=== PATIENT | female | born 1945 | race Caucasian/White ===

== ENCOUNTER 2021-06-27 10:16 | Inpatient (IN) ==
--- NOTE | 2021-06-27 11:01 | Emergency Department Note ---
Impression & Plan Closed fracture of left hip, Fall ED Provider Note Provider: Babatunde Cope MD DATE OF SERVICE: 06/27/2021 CHIEF COMPLAINT: Fall, left hip pain HISTORY OF PRESENT ILLNESS: Patient is a 75-year-old female reported history of brain tumor on chemotherapy as well as stroke with some mild resultant weakness of left side presenting here today by ambulance after a fall 2 days ago. Evidently fell at home on . Denies loss of conscious but states she did strike her head. Denies any headache, dizziness, neck pain, or visual changes. Denies chest pain or shortness of breath. Denies abdominal pain. Reports pain in her left inguinal region of the hip towards the left thigh. Denies any numbness or tingling the foot but states it hurts when she tries to move the leg and says she cannot walk on it. States initially she is able get up after the fall and up but then it hurt a lot. Talked with her doctor's office by her report he was given some pain medicine. Given contrast is obtained here today. No other falls reported. Denies use of blood thinners. Again reports she is on chemotherapy infusions every several weeks. REVIEW OF SYSTEMS: A total of 10 review of systems was obtained and negative except as stated above in the HPI. PAST MEDICAL HISTORY: As noted above MEDICATIONS: Denies use of anticoagulants, reviewed home medications SOCIAL HISTORY: Resides at home PHYSICAL EXAM: GENERAL: alert and oriented in no acute distress on stretcher Head: normocephalic and atraumatic EYES: No injection, discharge or icterus. PERRL NECK: Trachea midline. Supple. ENT: Mucous membranes pink and moist. LUNGS: Airway patent. No retractions. Breath sounds clear HEART: Regular rate and rhythm. No chest wall tenderness ABDOMEN: Soft and non-tender, without guarding or rebound. BACK: No midline tenderness. No bilateral flank tenderness. SKIN: Acyanotic, warm, dry, without rashes EXTREMITIES: Without swelling, tenderness or deformity except for pain at the left inguinal region and pain with ROM of the left hip. NEUROLOGICAL:No aphasia. No facial droop with slight slurred speech. Intact and strong strength in the right upper and lower extremity. Limited mobility in the left lower leg due to pain at the hip but good toe wiggle. Some mild weakness of the left upper arm but able to move it purposefully. Intact sensation of left arm and leg. EK beats. Normal sinus rhythm. No PVC or PAC. No acute ST segment elevation or depression. QTc 441. Normal axis. CONTINUOUS CARDIAC MONITORING: was ordered and showed a heart rate of 60s-70s bpm in normal sinus rhythm GCS 15. Patient's laboratory studies and imaging reviewed. Differential includes Fracture, dislocation, contusion, intra-abdominal, pneumothorax, intrathoracic, intracranial, neurologic, compartment syndrome, rhabdomyolysis, as well as other pathologies. IMPRESSION/MEDICAL DECISION MAKING: Patient presents after fall 2 days ago with left inguinal pain. Question hip fracture. No history of hip surgeries reported. Did note she did hit her head did complete a CT of the head although by her report not having new neurological deficits. No significant report of significant neck pain or chest or abdominal pain otherwise. No evidence of significant wound. Basic labs were obtained. Blood work without leukocytosis. Mild anemia 11.5. No electrolyte abnormality. Stable renal function. Negative COVID test. Hip x-ray questions left hip fracture. Orthopedics to be consulted. Patient and sister updated at bedside. Hospitalist contacted for further care and likely operative pair of the hip. DIAGNOSIS: Fall, left hip fracture DISPOSITION: Hospitalist will evaluate Patient was agreeable with this plan. Past Med/Surg History Social History Smoking Status: Former smoker Preferred Language: Faroese Feels Safe at Home: Yes Home Meds Home Medications Medication Instructions Recorded Confirmed acetaminophen 325 mg capsule 325 mg PO QID PRN 06/27/21 06/27/21 amlodipine 5 mg tablet 5 mg PO DAILY 06/27/21 06/27/21 cholestyramine (with sugar) 4 gram 1 ea PO QAM 06/27/21 06/27/21 powder for susp in a packet clobetasol 0.05 % topical ointment 1 applic TOPICAL BID 06/27/21 06/27/21 cyanocobalamin (vitamin B-12) 1,000 mcg IM Q30D 06/27/21 06/27/21 1,000 mcg/mL injection solution dexamethasone 0.5 mg/5 mL oral 1 mg PO QID 06/27/21 06/27/21 solution ergocalciferol (vitamin D2) 1,250 1,250 mcg PO WK 06/27/21 06/27/21 mcg (50,000 unit) capsule everolimus (antineoplastic) 10 mg 10 mg PO DAILY 06/27/21 06/27/21 tablet labetalol 100 mg tablet 100 mg PO Q8H 06/27/21 06/27/21 lisinopril 40 mg tablet 40 mg PO DAILY 06/27/21 06/27/21 loperamide 2 mg capsule 2 mg PO DAILY 06/27/21 06/27/21 lorazepam 0.5 mg tablet 0.5 mg PO HS PRN 06/27/21 06/27/21 meclizine 12.5 mg tablet 12.5 mg PO DAILY 06/27/21 06/27/21 multivitamin 1 tab PO DAILY 06/27/21 06/27/21 omeprazole 20 mg capsule,delayed 20 mg PO DAILY 06/27/21 06/27/21 release ondansetron HCl 8 mg tablet 8 mg PO Q8H PRN 06/27/21 06/27/21 sertraline 50 mg tablet 50 mg PO DAILY 06/27/21 06/27/21 tramadol 50 mg tablet 50 mg PO BID PRN 06/27/21 06/27/21 Results & Data (ED) Vital Signs Vital Signs - 24 hr 06/27/21 10:03 06/27/21 10:28 06/27/21 16:27 Temperature 37.2 C 36.5 C Temperature Source Oral Temporal Artery Scan Pulse Rate 70 76 Pulse Rate [Apical] 71 Pulse Rate [Finger] 70 Pulse Rhythm [Apical] Regular Pulse Strength [Apical] Normal Respiratory Rate 16 16 13 Respiratory Effort / Characteristics Non-Labored Spontaneous Respiratory Depth Normal Blood Pressure 139/84 Blood Pressure [Left Arm] 139/84 195/91 H Blood Pressure Mean 102 Blood Pressure Mean [Left Arm] 102 125 Blood Pressure Position [Left Arm] Lying Pulse Oximetry 93 92 93 Oxygen Delivery Method Room Air Room Air Room Air Oxygen Flow Rate Sepsis Recent Fever Within 48 Hours No Sepsis New/Unexplained Change in Mental Status No Sepsis Action Taken by Nursing No Action Required 06/27/21 16:35 06/27/21 16:45 06/27/21 16:55 Temperature Temperature Source Pulse Rate Pulse Rate [Apical] 66 67 65 Pulse Rate [Finger] Pulse Rhythm [Apical] Regular Regular Regular Pulse Strength [Apical] Normal Normal Normal Respiratory Rate 14 12 16 Respiratory Effort / Characteristics Non-Labored Spontaneous Non-Labored Spontaneous Non-Labored Spontaneous Respiratory Depth Normal Normal Normal Blood Pressure Blood Pressure [Left Arm] 194/89 H 181/89 H 179/87 H Blood Pressure Mean Blood Pressure Mean [Left Arm] 124 119 117 Blood Pressure Position [Left Arm] Lying Lying Lying Pulse Oximetry 98 97 95 Oxygen Delivery Method Oxymask Oxymask Oxymask Oxygen Flow Rate 4 2 2 Sepsis Recent Fever Within 48 Hours Sepsis New/Unexplained Change in Mental Status Sepsis Action Taken by Nursing 06/27/21 17:05 06/27/21 17:15 06/27/21 17:25 Temperature 36.4 C L Temperature Source Temporal Artery Scan Pulse Rate Pulse Rate [Apical] 65 59 L 61 Pulse Rate [Finger] Pulse Rhythm [Apical] Regular Regular Regular Pulse Strength [Apical] Normal Normal Normal Respiratory Rate 13 14 13 Respiratory Effort / Characteristics Non-Labored Spontaneous Non-Labored Spontaneous Non-Labored Spontaneous Respiratory Depth Normal Normal Normal Blood Pressure Blood Pressure [Left Arm] 183/79 H 141/73 H 169/78 H Blood Pressure Mean Blood Pressure Mean [Left Arm] 113 95 108 Blood Pressure Position [Left Arm] Lying Lying Lying Pulse Oximetry 95 96 96 Oxygen Delivery Method Oxymask Oxymask Oxymask Oxygen Flow Rate 2 2 2 Sepsis Recent Fever Within 48 Hours Sepsis New/Unexplained Change in Mental Status Sepsis Action Taken by Nursing 06/27/21 17:31 Temperature Temperature Source Pulse Rate Pulse Rate [Apical] 60 Pulse Rate [Finger] Pulse Rhythm [Apical] Regular Pulse Strength [Apical] Normal Respiratory Rate 17 Respiratory Effort / Characteristics Non-Labored Spontaneous Respiratory Depth Normal Blood Pressure Blood Pressure [Left Arm] 172/74 H Blood Pressure Mean Blood Pressure Mean [Left Arm] 106 Blood Pressure Position [Left Arm] Lying Pulse Oximetry 96 Oxygen Delivery Method Room Air Oxygen Flow Rate Sepsis Recent Fever Within 48 Hours Sepsis New/Unexplained Change in Mental Status Sepsis Action Taken by Nursing Laboratory Data Result diagrams: 06/27/21 10:38 06/27/21 10:38 Lab Results 06/27/21 06/27/21 06/27/21 Range/Units 10:38 10:38 10:38 WBC 7.07 (4.8-10.8) K/uL RBC 4.01 L (4.2-5.4) M/uL Hgb 11.5 L (12.0-16.0) g/dL Hct 36.1 L (37-47) % MCV 90.0 (80-100) fL MCH 28.7 (25-34) pg MCHC 31.9 L (32-36) g/dL RDW Std Deviation 48.1 H (36.4-46.3) fL RDW Coeff of Judie 14.6 H (11.5-14.5) % Plt Count 177 (130-400) K/uL MPV 9.9 (7.4-10.4) fL Immature Gran % (Auto) 0.3 % Neut % (Auto) 65.3 % Lymph % (Auto) 27.2 % [place] % (Auto) 4.8 % Eos % (Auto) 2.3 % Baso % (Auto) 0.1 % Neut # (Auto) 4.62 (1.4-6.5) K/uL Lymph # (Auto) 1.92 (1.2-3.4) K/uL [place] # (Auto) 0.34 (0.11-0.59) K/uL Eos # (Auto) 0.16 (0-0.5) K/uL Baso # (Auto) 0.01 (0-0.2) K/uL Immature Gran # (Auto) 0.02 (0.00-0.02) K/uL PT 10.7 (9.0-12.0) Seconds INR 1.0 (0.9-1.1) Sodium 137 (136-145) mmol/L Potassium 3.7 (3.5-5.1) mmol/L Chloride 103 (98-107) mmol/L Carbon Dioxide 28 (21-32) mmol/L Anion Gap 6 (3-11) BUN 12 (6-23) mg/dl Creatinine 0.64 (0.6-1.2) mg/dl Est Cr Clr Drug Dosing 60.9 ml/min Est GFR ( Amer) 99.8 ml/min Est GFR (Non-Af Amer) 86.1 ml/min BUN/Creatinine Ratio 18.8 (10-20) Glucose 113 H (70-99(Fasting)) mg/dl Calcium 9.0 (8.5-10.1) mg/dl Total Bilirubin 0.5 (0.2-1.0) mg/dl AST 23 (13-39) U/L ALT 22 (7-52) U/L Alkaline Phosphatase 86 (34-104) U/L Total Protein 6.4 (6.0-8.3) gm/dl Albumin 3.7 (3.4-5.0) gm/dl Globulin 2.7 (2.5-4.0) gm/dl Albumin/Globulin Ratio 1.4 (0.9-2) SARS-CoV-2, RNA, NAAT (NEGATIVE) 06/27/21 Range/Units 10:49 WBC (4.8-10.8) K/uL RBC (4.2-5.4) M/uL Hgb (12.0-16.0) g/dL Hct (37-47) % MCV (80-100) fL MCH (25-34) pg MCHC (32-36) g/dL RDW Std Deviation (36.4-46.3) fL RDW Coeff of Judie (11.5-14.5) % Plt Count (130-400) K/uL MPV (7.4-10.4) fL Immature Gran % (Auto) % Neut % (Auto) % Lymph % (Auto) % [place] % (Auto) % Eos % (Auto) % Baso % (Auto) % Neut # (Auto) (1.4-6.5) K/uL Lymph # (Auto) (1.2-3.4) K/uL [place] # (Auto) (0.11-0.59) K/uL Eos # (Auto) (0-0.5) K/uL Baso # (Auto) (0-0.2) K/uL Immature Gran # (Auto) (0.00-0.02) K/uL PT (9.0-12.0) Seconds INR (0.9-1.1) Sodium (136-145) mmol/L Potassium (3.5-5.1) mmol/L Chloride (98-107) mmol/L Carbon Dioxide (21-32) mmol/L Anion Gap (3-11) BUN (6-23) mg/dl Creatinine (0.6-1.2) mg/dl Est Cr Clr Drug Dosing ml/min Est GFR ( Amer) ml/min Est GFR (Non-Af Amer) ml/min BUN/Creatinine Ratio (10-20) Glucose (70-99(Fasting)) mg/dl Calcium (8.5-10.1) mg/dl Total Bilirubin (0.2-1.0) mg/dl AST (13-39) U/L ALT (7-52) U/L Alkaline Phosphatase (34-104) U/L Total Protein (6.0-8.3) gm/dl Albumin (3.4-5.0) gm/dl Globulin (2.5-4.0) gm/dl Albumin/Globulin Ratio (0.9-2) SARS-CoV-2, RNA, NAAT NEGATIVE (NEGATIVE) Administered Medications Fentanyl Citrate (Fentanyl Citrate 100 Mcg/2 Ml Vial) 50 mcg IV Q5M PRN PRN Reason: PACU Use Only-Pain Stop: 06/27/21 23:09 Last Admin: 06/27/21 17:15 Dose: 50 mcg Documented by: [id number] Admin: 06/27/21 16:35 Dose: 50 mcg Documented by: [id number] Labetalol HCl (Labetalol Hcl Iv 5 Mg/Ml 20ml) 10 mg IV ONCE PRN PRN Reason: Hypertension Stop: 07/27/21 16:29 Last Admin: 06/27/21 16:50 Dose: 10 mg Documented by: [id number] Cosigned by: [id number] Discontinued Medications Bupivacaine HCl (Bupivacaine 0.5 % 5 Mg/1 Ml Mpf 30ml Vial) Confirm Administered Dose 30 ml .ROUTE .STK-MED ONE Stop: 06/27/21 15:20 Last Admin: 06/27/21 16:08 Dose: 20 ml Documented by: [id number] Epinephrine HCl (Epinephrine Inj 1 Mg/Ml Amp) Confirm Administered Dose 1 mg .ROUTE .STK-MED ONE Stop: 06/27/21 15:20 Last Admin: 06/27/21 16:08 Dose: 0.15 mg Documented by: [id number] Fentanyl Citrate (Fentanyl Citrate 100 Mcg/2 Ml Vial) Confirm Administered Dose 100 mcg .ROUTE .STK-MED ONE Stop: 06/27/21 16:34 Last Admin: 06/27/21 16:42 Dose: Not Given Documented by: [id number] Imaging Data Radiologist's Impression: Chest X-Ray 06/27/21 10:28 XR chest 1V portable CLINICAL HISTORY: fall COMPARISON STUDY: No previous studies for comparison. FINDINGS: Lung volumes are normal. Lungs are clear. There is no pneumothorax or pleural effusion. Mild cardiomegaly is noted. Mediastinal contours are normal. There is no evidence for pulmonary edema. IMPRESSION: No acute cardiopulmonary findings. ACT 112: Negative or not required by law. Electronically signed by: Trino Mcdermott M.D. 06/27/2021 12:[address] 06/27/21 10:28 CT OF THE HEAD WITHOUT CONTRAST CLINICAL HISTORY: Fall. COMPARISON STUDY: No previous studies for comparison. TECHNIQUE: Helical axial images of the head were obtained without IV contrast. Automated exposure control was utilized for the study. A dose lowering [place] was utilized adhering to the principles of ALARA. FINDINGS: Occipital craniectomy is noted. Operative bed fluid collection is noted. Encephalomalacia within the cerebellum is noted, greater within the left cerebellar hemisphere. Note is made of a 4.1 x 3.5 cm hyperdense mass centered within the splenium of the corpus callosum. This slightly extends into the interpeduncular cistern. There is no hydrocephalus. There are no findings to suggest acute dural sinus thrombosis or acute territorial infarct. Old lacunar infarct within the left basal ganglia is present. White matter hypodensity suggests small vessel disease. There is no acute calvarial fracture. IMPRESSION: 1. No acute intracranial findings. No acute calvarial fracture. 2. 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 No hydrocephalus. Postoperative findings within the posterior fossa, as described above. ACT 112: Negative or not required by law. Electronically signed by: Trino Mcdermott M.D. 06/27/2021 11:40 AM Hip/Pelvis X-Ray 06/27/21 10:28 XR hip LT 2V w pelvis CLINICAL HISTORY: Left hip pain following fall. COMPARISON: None FINDINGS: Sacroiliac joints and symphysis pubis are intact. No acute proximal right femoral fracture is noted. Note is made of an acute impacted mildly disp laced subcapital left femoral fracture. No additional acute fractures are identified. Surgical clips within the pelvis are present. IMPRESSION: Acute mildly displaced impacted subcapital left femoral fracture. ACT 112: Negative or not required by law. Electronically signed by: Trino Mcdermott M.D. 06/27/2021 12:13 PM Knee X-Ray 06/27/21 10:28 XR knee LT 3V CLINICAL HISTORY: fall COMPARISON: None FINDINGS: Alignment of the left knee is anatomic. No left knee joint effusion is present. No acute fracture. There is mild patellofemoral compartment osteoarthritis. IMPRESSION: No acute fracture within the left knee. ACT 112: Negative or not required by law. Electronically signed by: Trino Mcdermott M.D. 06/27/2021 12:[address] 06/27/21 10:29 CT OF THE CERVICAL SPINE WITHOUT CONTRAST CLINICAL HISTORY: Fall. COMPARISON STUDY: No previous studies for comparison. TECHNIQUE: Helical axial images of the cervical spine were obtained without IV contrast. Sagittal and coronal reconstructions were viewed. Automated exposure control was utilized for the study. A dose lowering technique was utilized adhering to the principles of ALARA. FINDINGS: Alignment of the cervical spine is anatomic. Vertebral body heights are maintained. No acute cervical spine fracture or subluxation is present. There is no prevertebral edema. Facet joints are intact. Moderate multilevel de generative changes within the cervical spine are noted. Postoperative findings consistent with occipital craniectomy are noted. Operative bed fluid collection is present. These findings are better depicted on the head CT which will be reported separately. IMPRESSION: 1. No acute cervical spine fracture or subluxation. 2. Postoperative findings within the posterior fossa. These are better depicted on the head CT which will be reported separately. ACT 112: Negative or not required by law. Electronically signed by: Trino Mcdermott M.D. 06/27/2021 11:[address] 06/27/21 12:[address] WITHOUT CONTRAST CLINICAL HISTORY: Left hip pain following fall. ?frx COMPARISON STUDY: Pelvis and left hip radiographs performed earlier today. TECHNIQUE: Axial images of the left hip were obtained without IV contrast. Sagittal and coronal reconstructions were viewed. Automated exposure control was utilized for the study. A dose lowering technique was utilized adhering to the principles of ALARA. FINDINGS: Note is made of an acute mildly displaced impacted subcapital left femoral fracture. No additional acute fractures are identified on this examination. Alignment of the left hip is otherwise anatomic. There is no evidence for avascular necrosis of the left femoral head. Moderate joint space narrowing and osteophytosis of the left hip is present. No significant abnormalities are identified within visualized portions of the left hemipelvis. IMPRESSION: Acute mildly displaced impacted subcapital left femoral neck fracture. ACT 112: Negative or not required by law. Electronically signed by: Trino Mcdermott M.D. 06/27/2021 1:41 PM Hip X-Ray 06/27/21 14:54 FL hip LT 2-3V CLINICAL HISTORY: Left hip fracture. COMPARISON STUDY: Left hip radiographs and CT of the left hip performed earlier today. FLUOROSCOPY TIME: 1 minute and 12 seconds. FLUOROSCOPIC IMAGES: 2 FINDINGS: Fluoroscopy was provided during open induction and internal fixation of the left femoral neck fracture with 3 cannulated screws. Fracture alignment has improved. Hardware is intact. No unexpected radiopaque foreign bodies. IMPRESSION: Fluoroscopy provided for internal fixation of the left femoral neck fracture with 3 cannulated screws. ACT 112: Negative or not required by law. Electronically signed by: Trino Mcdermott M.D. 06/27/2021 4:21 PM Discharge Plan Visit Data Chief Complaint: Fall Stated Complaint: fall/hip pain ED Provider: Babatunde Cope Discharge Problem: Closed fracture of left hip, Fall Patient Disposition: Admitted As Inpatient Discharge Instructions Interventions: ED Discharge Assessment Last Done: 06/27/21 17:18 Discharge Problem: Closed fracture of left hip Qualifiers: Encounter type: initial encounter Qualified Code(s): S72.002A - Fracture of unspecified part of neck of left femur, initial encounter for closed fracture Fall Qualifiers: Encounter type: initial encounter Qualified Code(s): W19.XXXA - Unspecified fall, initial encounter
[2021-06-27 11:03] LABS: Basophils # (auto) 0.01 K/uL (0-0.2); Basophils % (auto) 0.1 %; Eosinophils # (auto) 0.16 K/uL (0-0.5); Eosinophils % (auto) 2.3 %; Hematocrit (blood only) 36.1 % (37-47); Hemoglobin 11.5 g/dL (12.0-16.0); Immature Granulocytes # (auto) 0.02 K/uL (0.00-0.02); Immature Granulocytes % (auto) 0.3 %; Lymphocytes # (auto) 1.92 K/uL (1.2-3.4); Lymphocytes % (auto) 27.2 %; Mean Corpuscular Hemoglobin 28.7 pg (25-34); Mean Corpuscular Hgb Conc 31.9 g/dL (32-36); Mean Platelet Volume 9.9 fL (7.4-10.4); Monocytes # (auto) 0.34 K/uL (0.11-0.59); Monocytes % (auto) 4.8 %; Neutrophils # (auto) 4.62 K/uL (1.4-6.5); Neutrophils % (auto) 65.3 %; Platelet Count 177 K/uL (130-400); RDW Coefficient of Variation 14.6 % (11.5-14.5); RDW Standard Deviation 48.1 fL (36.4-46.3); Red Blood Count 4.01 M/uL (4.2-5.4); White Blood Count 7.07 K/uL (4.8-10.8)
[2021-06-27 11:19] LABS: Albumin Globulin Ratio 1.4 (0.9-2); Albumin Level 3.7 gm/dl (3.4-5.0); BUN Creatinine Ratio 18.8 (10-20); Bilirubin,Total 0.5 mg/dl (0.2-1.0); Creatinine Clr Calc Pharmacy 60.9 ml/min; Est GFR (African American) 99.8 ml/min; Est GFR (Non-African American) 86.1 ml/min; Globulin 2.7 gm/dl (2.5-4.0); Potassium 3.7 mmol/L (3.5-5.1); Prothrombin Time 10.7 Seconds (9.0-12.0); Total Protein 6.4 gm/dl (6.0-8.3)
--- NOTE | 2021-06-27 11:42 | CT Scan Report ---
CT OF THE HEAD WITHOUT CONTRAST CLINICAL HISTORY: Fall. COMPARISON STUDY: No previous studies for comparison. TECHNIQUE: Helical axial images of the head were obtained without IV contrast. Automated exposure con trol was utilized for the study. A dose lowering technique was utilized adhering to the principles o f ALARA. FINDINGS: Occipital craniectomy is noted. Operative bed fluid collection is noted. Encephalomalacia w ithin the cerebellum is noted, greater within the left cerebellar hemisphere. Note is made of a 4.1 x 3.5 cm hyperdense mass centered within the splenium of the corpus callosum. This slightly extends in to the interpeduncular cistern. There is no hydrocephalus. There are no findings to suggest acute dur al sinus thrombosis or acute territorial infarct. Old lacunar infarct within the left basal ganglia i s present. White matter hypodensity suggests small vessel disease. There is no acute calvarial fractu re. IMPRESSION: 1. No acute intracranial findings. No acute calvarial fracture. 2. 4.1 x 3.5 cm hyperdense mass centered within the spleen of the corpus callosum consistent with a n eoplasm. No hydrocephalus. Postoperative findings within the posterior fossa, as described above. ACT 112: Negative or not required by law. Electronically signed by: Trino Mcdermott M.D. 06/27/2021 11:40 AM
--- NOTE | 2021-06-27 11:48 | CT Scan Report ---
CT OF THE CERVICAL SPINE WITHOUT CONTRAST CLINICAL HISTORY: Fall. COMPARISON STUDY: No previous studies for comparison. TECHNIQUE: Helical axial images of the cervical spine were obtained without IV contrast. Sagittal a nd coronal reconstructions were viewed. Automated exposure control was utilized for the study. A do se lowering technique was utilized adhering to the principles of ALARA. FINDINGS: Alignment of the cervical spine is anatomic. Vertebral body heights are maintained. No acut e cervical spine fracture or subluxation is present. There is no prevertebral edema. Facet joints are intact. Moderate multilevel degenerative changes within the cervical spine are noted. Postoperative findings consistent with occipital craniectomy are noted. Operative bed fluid collection is present. These findings are better depicted on the head CT which will be reported separately. IMPRESSION: 1. No acute cervical spine fracture or subluxation. 2. Postoperative findings within the posterior fossa. These are better depicted on the head CT which will be reported separately. ACT 112: Negative or not required by law. Electronically signed by: Trino Mcdermott M.D. 06/27/2021 11:47 AM
--- NOTE | 2021-06-27 12:14 | XRay Report ---
XR hip LT 2V w pelvis CLINICAL HISTORY: Left hip pain following fall. COMPARISON: None FINDINGS: Sacroiliac joints and symphysis pubis are intact. No acute proximal right femoral fracture is noted. Note is made of an acute impacted mildly displaced subcapital left femoral fracture. No ad ditional acute fractures are identified. Surgical clips within the pelvis are present. IMPRESSION: Acute mildly displaced impacted subcapital left femoral fracture. ACT 112: Negative or not required by law. Electronically signed by: Trino Mcdermott M.D. 06/27/2021 12:13 PM
--- NOTE | 2021-06-27 12:15 | XRay Report ---
XR chest 1V portable CLINICAL HISTORY: fall COMPARISON STUDY: No previous studies for comparison. FINDINGS: Lung volumes are normal. Lungs are clear. There is no pneumothorax or pleural effusion. Mil d cardiomegaly is noted. Mediastinal contours are normal. There is no evidence for pulmonary edema. IMPRESSION: No acute cardiopulmonary findings. ACT 112: Negative or not required by law. Electronically signed by: Trino Mcdermott M.D. 06/27/2021 12:14 PM
--- NOTE | 2021-06-27 12:15 | XRay Report ---
XR knee LT 3V CLINICAL HISTORY: fall COMPARISON: None FINDINGS: Alignment of the left knee is anatomic. No left knee joint effusion is present. No acute f racture. There is mild patellofemoral compartment osteoarthritis. IMPRESSION: No acute fracture within the left knee. ACT 112: Negative or not required by law. Electronically signed by: Trino Mcdermott M.D. 06/27/2021 12:13 PM
--- NOTE | 2021-06-27 13:26 | Electrocardiogram Report ---
Test Reason : Blood Pressure : / mmHG Vent. Rate : 064 BPM Atrial Rate : 064 BPM P-R Int : 136 ms QRS Dur : 088 ms QT Int : 428 ms P-R-T Axes : -03 008 031 degrees QTc Int : 441 ms Normal sinus rhythm Normal ECG No previous ECGs available Confirmed by Burke Logan [id number]) on 06/27/2021 1:26:40 PM Referred By: REFERRED SELF Confirmed By:Burke Logan
--- NOTE | 2021-06-27 13:29 | Orthopedic Consultation ---
Date of Consultation June 27, 2021 Assessment & Plan (1) Closed fracture of left hip: I discussed the x-ray findings with the patient as well as her sister Lucille who accompanies her in the emergency room. For this type of injury we typically recommend closed reduction and percutaneous pinning to stabilize the fracture and allow her to safely weight-bear. I reviewed the risks and benefits of the surgery, alternatives, and expected outcomes. Her history of balance problems secondary to her brain tumor and history of falling does make me concerned about her postoperative course regardless of which treatment is chosen. Her fixation could fail if she falls. For this reason I strongly feel that she needs to go to a nursing home facility where she will have extra help after her surgery is completed and she is ready to discharge from the hospital. We will also need to hold her chemotherapy until her fracture is healed for approximately 6 weeks. I do not believe bedrest is in her interest as she could get a blood clot bedsores or pneumonia. After reviewing all the risks and benefits of surgery, alternatives, and expected outcomes she elected to proceed. All questions were answered. Informed consent was signed. Patient will be seen by the internal medicine service. Once she is cleared for surgery we will proceed to the operating room for closed reduction percutaneous pinning left hip fracture. (2) Brain tumor: (3) Fall: (4) Balance disorder: History of Present Illness Reason for Consultation: Left hip pain History of Present Illness Patient is a 75-year-old female reported history of brain tumor on chemotherapy as well as stroke with some mild resultant weakness of left side presenting here today by ambulance after a fall 2 days ago. Evidently fell at home on . Denies loss of conscious but states she did strike her head. Denies any headache, dizziness, neck pain, or visual changes. Denies chest pain or shortness of breath. Denies abdominal pain. Reports pain in her left inguinal region of the hip towards the left thigh. Denies any numbness or tingling the foot but states it hurts when she tries to move the leg and says she cannot walk on it. States initially she is able get up after the fall and up but then it hurt a lot. Talked with her doctor's office by her report he was given some pain medicine. Given contrast is obtained here today. No other falls reported. Denies use of blood thinners. Again reports she is on chemotherapy infusions every several weeks. Patient History Social History Smoking Status: Former smoker Preferred Language: Estonian Feels Safe at Home: Yes Physical Exam Physical Exam: Resting supine in bed in no acute distress. She does complain of pain in her left groin. She actually has her hips flexed up approximately 60 degrees because she is more comfortable in this position. Answers all questions appropriately. Left lower extremity exam reveals the patient to be neurovascularly intact distally with EHL FHL tib ant gastrocsoleus quadriceps and hamstring functioning. She has a palpable dorsalis pedis pulse. She is sensory intact to light touch throughout her entire left lower extremity. No skin lesions are noted. Results & Data ([facility]) Vital Signs (Past 12 Hours) Vital Signs Temp Pulse Pulse Resp BP BP Pulse Ox 06/27/21 10:28 76 16 92 06/27/21 10:03 37.2 C 70 70 16 139/84 139/84 93 Diagnostic Findings X-rays done today in the emergency room demonstrate a valgus impacted left femoral neck fracture. (1) Closed fracture of left hip Encounter type: initial encounter Qualified Code(s): S72.002A - Fracture of unspecified part of neck of left femur, initial encounter for closed fracture (2) Fall Encounter type: initial encounter Qualified Code(s): W19.XXXA - Unspecified fall, initial encounter
--- NOTE | 2021-06-27 13:43 | CT Scan Report ---
LEFT HIP CT WITHOUT CONTRAST CLINICAL HISTORY: Left hip pain following fall. ?frx COMPARISON STUDY: Pelvis and left hip radiographs performed earlier today. TECHNIQUE: Axial images of the left hip were obtained without IV contrast. Sagittal and coronal recon structions were viewed. Automated exposure control was utilized for the study. A dose lowering techn ique was utilized adhering to the principles of ALARA. FINDINGS: Note is made of an acute mildly displaced impacted subcapital left femoral fracture. No add itional acute fractures are identified on this examination. Alignment of the left hip is otherwise an atomic. There is no evidence for avascular necrosis of the left femoral head. Moderate joint space na rrowing and osteophytosis of the left hip is present. No significant abnormalities are identified wit hin visualized portions of the left hemipelvis. IMPRESSION: Acute mildly displaced impacted subcapital left femoral neck fracture. ACT 112: Negative or not required by law. Electronically signed by: Trino Mcdermott M.D. 06/27/2021 1:41 PM
[2021-06-27] MEDS ORDERED: fentaNYL citrate 100 MCG/2 ML VIAL ONE ×3 (14:31→16:33)
--- NOTE | 2021-06-27 15:05 | History and Physical Report ---
DATE OF ADMISSION: 06/27/2021. CHIEF COMPLAINT: Status post fall and left hip fracture. HISTORY OF PRESENT ILLNESS: A 75-year-old female with past medical history significant for hyperlipidemia, prediabetes, hypertension, gastric bypass surgery, post-gastric surgery syndrome, B12 malabsorption secondary to gastric bypass on vitamin B12 shots, chronic diarrhea, protein calorie malnutrition, chronic kidney disease stage III, cystocele and iron deficiency anemia. The patient has a history of recurrent meningioma. She is status post surgery in 2019. 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 Ambulates with a walker. She fell a couple of days ago at home when she was going to bathroom hurriedly when she has lost balance and fell backward, did not hit her head, no loss of consciousness, was able to get up and walk back to her bed but after that she was not able to get up. She lives with her in the farm and sister and her sons live in the same farm. With a walker, she can walk long distances. Denies any other symptoms except for pain in the left hip region. Denies any headache. Has double vision after brain tumor surgery. No runny nose, no sore throat, no cough. No fevers, no chest pain, no shortness of breath. No nausea, no abdominal pain. Normal bladder movements. Currently, resting comfortably and hemodynamically stable. ALLERGIES: No known drug allergies. PAST MEDICAL HISTORY: As mentioned above. PAST SURGICAL HISTORY: , colonoscopy, craniotomy, gastric bypass surgery, laparoscopic gastrostomy, laparoscopic cholecystectomy, cataract surgery. MEDICATIONS: As per [facility] the patient is on meclizine 2.5 mg p.o. t.i.d. p.r.n., Afinitor 10 mg p.o. daily, tramadol 50 mg p.o. every 6 hours p.r.n., cholestyramine 4 mg in the morning, loperamide 2 mg p.r.n., Lorazepam 0.25 mg p.o. p.r.n. bedtime, amlodipine 5 mg p.o. daily, cyanocobalamin 1000 mg injection every month, omeprazole 20 mg p.o. daily, Zofran 8 mg p.o. t.i.d. p.r.n., labetalol 100 mg p.o. t.i.d., sertraline 50 mg p.o. daily, Tylenol 325 mg p.o. 6 hours p.r.n., lisinopril 40 mg p.o. daily, vitamin D 50,000 units once a week, multivitamins one tablet p.o. daily. FAMILY HISTORY: Significant for sister has cancer, brother has CAD, father has heart disorder; mother has heart disorder. SOCIAL HISTORY: She lives with her . No smoking, no alcohol, no drug use. REVIEW OF SYSTEMS: As per HPI. Rest of the review of systems is negative. PHYSICAL EXAMINATION: GENERAL: The patient is of moderate build, not in acute distress. VITAL SIGNS: Temperature 37.2, pulse 76, respiratory rate 16, blood pressure 113/84, oxygen 92% on room air. HEENT: Pupils equal, round and reactive to light. Oral mucosa moist. LUNGS: No JVD, no neck masses. CARDIOVASCULAR: S1 and S2 heard. Regular rate and rhythm. No murmur, no gallop. RESPIRATORY: Normal AP diameter. No accessory muscle use. No wheezing, no crackles. ABDOMEN: Soft. Bowel sounds are present, nontender, no distention. CENTRAL NERVOUS SYSTEM: Alert and oriented, left facial droop. Speech is clear. Moves her extremities except for left lower extremity. Obeys commands. Insight is good. EXTREMITIES: Painful left lower extremity movements. No edema, no erythema seen. LABORATORY: WBC 7, hemoglobin 11.5, hematocrit 36.1, platelets 177. PT 10.7, INR 1. Sodium 137, potassium 3.7, chloride 103, CO2 of 28, BUN 12, creatinine 0.6, serum glucose 113, calcium 9, total bilirubin 0.5, AST 23, ALT 22, alkaline phosphatase 86. SARS-CoV-[address] rapid test negative[address] CERVICAL SPINE CT: No acute findings, possible finding within the posterior fossa. Knee x-ray on the left, no acute fracture. Hip and pelvic x-ray, acute mildly displaced, impacted subcapital left femoral fracture. 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 POSTOPERATIVE FINDINGS: Chest x-ray, no acute cardiopulmonary findings. EKG: Normal sinus rhythm at a rate of 64, no acute ST changes seen. ASSESSMENT AND PLAN: This 75-year-old female presents with fall. 1. Status post fall and left hip fracture. The patient has history of brain tumor, recurrent meningioma, status post surgery, currently on chemo Ambulatory dysfunction, ambulates with a walker, but she can walk a long distance with a walker. She fell and had left hip fracture. Labs and her EKG looks okay and chest x-ray looks okay. She is acceptable risk to proceed with any procedure. Ortho consulted. Pain control, monitor Dilaudid p.r.n. and IV fluids, n.p.o. for now. 2. Recurrent meningioma. Currently getting chemo, history of surgery in 2019. Follow up with Heme/Onc. 3. Prediabetes, follow the HbA1c levels. 4. Hypertension, on amlodipine and labetalol and lisinopril as per the [facility]. We will monitor the blood pressure. 5. Chronic diarrhea, following with GI on cholestyramine. 6. History of gastric bypass surgery, history of B12 malabsorption on B12 shots and vitamin D supplements. Follow up with family doctor. 7. Chronic kidney disease stage III, creatinine 0.6, we will follow the repeat labs. 8. Gastroesophageal reflux disease. On omeprazole. 9. Depression, on sertraline. 10. Deep venous thrombosis prophylaxis as per Orthopedics. DISPOSITION: Monitor in the medical floor. PT/OT prior to discharge. Social Service to help with discharge planning. Level 1 full code as per my discussion with the patient. Job ID: [id number] [id number]
[2021-06-27] MEDS ORDERED: HYDROmorphone INJ 2 MG/ML SYR/VIAL IV PRN (15:09)
[2021-06-27] MEDS ORDERED: ATROPINE SULFATE 0.1 MG/ML 10ML SYR IV PRN (15:09)
[2021-06-27] MEDS ORDERED: ONDANSETRON INJ 2 MG/ML 2 ML VIAL IV PRN (15:09)
[2021-06-27] MEDS ORDERED: ePHEDrine sulfate 50 MG/ML AMP IV PRN (15:09)
--- NOTE | 2021-06-27 15:09 | Anesthesiology Consultation ---
Date of Service June 27, 2021 Assessment & Plan ASA ASA3 Proposed Anesthesia Anesthesia Type: General Risk / Benefits Reviewed With: PT / POA / Parent / Guardian, Accepts Plan and Informed Consent Obtained History Surgery Operation Date: 06/27/21 15:00 Proposed Procedures p ORIF Hip Cannulated Screw - Edil De Leon M.D. Height/Weight Height: 5 ft 3 in Weight: 53.8 kg Medications Home Medications Medication Instructions Recorded Confirmed Last Taken acetaminophen 325 mg capsule 325 mg PO QID PRN 06/27/21 06/27/21 Unknown amlodipine 5 mg tablet 5 mg PO DAILY 06/27/21 06/27/21 Unknown cholestyramine (with sugar) 4 gram 1 ea PO QAM 06/27/21 06/27/21 Unknown powder for susp in a packet clobetasol 0.05 % topical ointment 1 applic TOPICAL BID 06/27/21 06/27/21 Unknown cyanocobalamin (vitamin B-12) 1,000 mcg IM Q30D 06/27/21 06/27/21 Unknown 1,000 mcg/mL injection solution dexamethasone 0.5 mg/5 mL oral 1 mg PO QID 06/27/21 06/27/21 Unknown solution ergocalciferol (vitamin D2) 1,250 1,250 mcg PO WK 06/27/21 06/27/21 Unknown mcg (50,000 unit) capsule everolimus (antineoplastic) 10 mg 10 mg PO DAILY 06/27/21 06/27/21 Unknown tablet labetalol 100 mg tablet 100 mg PO Q8H 06/27/21 06/27/21 Unknown lisinopril 40 mg tablet 40 mg PO DAILY 06/27/21 06/27/21 06/27/21 loperamide 2 mg capsule 2 mg PO DAILY 06/27/21 06/27/21 Unknown lorazepam 0.5 mg tablet 0.5 mg PO HS PRN 06/27/21 06/27/21 Unknown meclizine 12.5 mg tablet 12.5 mg PO DAILY 06/27/21 06/27/21 Unknown multivitamin 1 tab PO DAILY 06/27/21 06/27/21 06/27/21 omeprazole 20 mg capsule,delayed 20 mg PO DAILY 06/27/21 06/27/21 06/27/21 release ondansetron HCl 8 mg tablet 8 mg PO Q8H PRN 06/27/21 06/27/21 Unknown sertraline 50 mg tablet 50 mg PO DAILY 06/27/21 06/27/21 06/27/21 tramadol 50 mg tablet 50 mg PO BID PRN 06/27/21 06/27/21 Unknown NPO Date Last Intake of Fluids: 06/27/21 Time Last Intake of Fluids: 08:00 Last Intake of Fluids Comment: Juice with pills. yougurt Date Last Intake of Solids: 06/25/21 Last Intake of Solids Comment: Has not eaten solids in two days or so Exercise / Class Metabolic Activity II 4-5 Yardwork/Stairs/Walk up hill Past Anesthesia History No Hx of Anesthesia Complications and No Family Hx of Anesthesia Complications History of PONV No Hx of PONV and No Hx of Motion Sickness Social History Smoking Status: Former smoker Review of Systems denies fever/cough/ colds/ chest pain/ SOB/ BRENDAN denies BRENDAN Physical Exam Vital Signs Last Vital Signs Temp 37.2 C 06/27/21 10:03 Pulse 76 06/27/21 10:28 Resp 16 06/27/21 10:28 BP 139/84 06/27/21 10:03 Pulse Ox 92 06/27/21 10:28 ENMT Mouth: no TMJ abnormality and no dentition abnormality Thyromental Distance: > or= 3.5 Finger Breadths Mallampati Class: II Neck neck extension not limited Respiratory normal respiratory effort; no respiratory distress Auscultation: lungs clear to auscultation bilaterally Cardiovascular Rate/Rhythm: regular rate and regular rhythm Neurologic moves all extremities Psychiatric Orientation: alert and oriented x 3 Testing Laboratory Results 06/27/21 10:38 06/27/21 10:38 PT 10.7 Seconds (9.0-12.0) 06/27/21 10:38 INR 1.0 (0.9-1.1) 06/27/21 10:38
[2021-06-27] MEDS ORDERED: EPINEPHrine INJ 1 MG/ML AMP ONE (15:19)
[2021-06-27] MEDS ORDERED: BUPIVACAINE 0.5 % 5 MG/1 ML MPF 30ML VIAL ONE (15:19)
[2021-06-27] MEDS ORDERED: SUCCINYLCHOLINE CHLORIDE 20 MG/ML 10 ML VIAL IV ONE (15:35)
[2021-06-27] MEDS ORDERED: ePHEDrine sulfate 50 MG/ML SYR ONE (15:39)
--- NOTE | 2021-06-27 16:22 | Fluoroscopy Report ---
FL hip LT 2-3V CLINICAL HISTORY: Left hip fracture. COMPARISON STUDY: Left hip radiographs and CT of the left hip performed earlier today. FLUOROSCOPY TIME: 1 minute and 12 seconds. FLUOROSCOPIC IMAGES: 2 FINDINGS: Fluoroscopy was provided during open induction and internal fixation of the left femoral ne ck fracture with 3 cannulated screws. Fracture alignment has improved. Hardware is intact. No unexpec julieta radiopaque foreign bodies. IMPRESSION: Fluoroscopy provided for internal fixation of the left femoral neck fracture with 3 merly ulated screws. ACT 112: Negative or not required by law. Electronically signed by: Trino Mcdermott M.D. 06/27/2021 4:21 PM
[2021-06-27] MEDS ORDERED: LABETALOL HCL IV 5 MG/ML 20ML IV PRN (16:30)
--- NOTE | 2021-06-27 16:33 | Operative Report ---
Post Operative Report Pre & Post Diagnosis Operation Date: 06/27/21 15:00 Pre-Op Diagnosis: Fall Left Hip Pain Closed Fracture of Left Hip Post-Op Diagnosis: Closed Fracture of Left Hip I identified the patient and participated in the time-out.: Yes Procedure Operation Date: 06/27/21 15:00 Actual Procedures p ORIF Hip Cannulated Screw - José Francisco MD Surgeon José Francisco M.D. Candy Attendant Niecy Milligan PA-C Estimated Blood Loss 5 Findings Consistent with Post-Op Diagnosis Specimens none Anesthesia Type General Description of Procedure Patient was taken to the operating room, placed under general anesthesia, time out performed, prepped and draped in routine. I was present during the entire case and assisted with positioning, tissue retraction and closure. Please see Dr. Francisco's operative report for further detail.The patient was awakened and taken to the recovery room in stable condition. I attest to the content of the Intraoperative Record and any orders documented therein. Any exceptions are noted below.
[2021-06-27] MEDS: fentaNYL citrate 100 MCG/2 ML VIAL IV PRN ×2 (16:35→17:15)
[2021-06-27] MEDS ORDERED: LABETALOL HCL IV 5 MG/ML 20ML IV ONE (17:07)
[2021-06-27] MEDS ORDERED: LABETALOL HCL 100 MG TAB PO SCH (18:14)
[2021-06-27] MEDS ORDERED: D5W AND NSS 1,000 ML IV SCH (18:14)
--- NOTE | 2021-06-27 18:16 | Anesthesiology Progress Note ---
Date of Service June 27, 2021 Anesthesia Post Procedure Vital Signs Vital Signs: Temp Pulse Pulse Pulse Resp BP BP 06/27/21 17:53 37.0 C 65 15 172/70 H 06/27/21 17:45 36.4 C L 60 15 158/77 H 06/27/21 17:31 60 17 172/74 H 06/27/21 17:25 61 13 169/78 H 06/27/21 17:15 59 L 14 141/73 H 06/27/21 17:05 36.4 C L 65 13 183/79 H 06/27/21 16:55 65 16 179/87 H 06/27/21 16:45 67 12 181/89 H 06/27/21 16:35 66 14 194/89 H 06/27/21 16:27 36.5 C 71 13 195/91 H 06/27/21 10:28 76 16 06/27/21 10:03 37.2 C 70 70 16 139/84 139/84 Pulse Ox 06/27/21 17:53 95 06/27/21 17:45 95 06/27/21 17:31 96 06/27/21 17:25 96 06/27/21 17:15 96 06/27/21 17:05 95 06/27/21 16:55 95 06/27/21 16:45 97 06/27/21 16:35 98 06/27/21 16:27 93 06/27/21 10:28 92 06/27/21 10:03 93 Pain Intensity Left Hip: Pain Intensity: 5 Transfer of Care Handoff Completed per policy Notes Mental Status: alert / awake / arousable and participated in evaluation Patient Amnestic to Procedure: Yes Nausea / Vomiting: adequately controlled Pain: adequately controlled Airway Patency, RR, SpO2: stable & adequate BP & HR: stable & adequate Hydration State: stable & adequate Anesthetic Complications: no major complications apparent and Pt Satisfied with anesthetic care
[2021-06-27 19:45] LABS: Appearance Urine Clear (Clear); Bacteria Urine Automated Negative (Negative); Bilirubin Urine Negative (Negative); Blood Urine Negative (Negative); Color Urine Dark Yellow; Glucose Urine UA Negative (Negative); Ketones Urine Negative (Negative); Leukocyte Esterase Urine Trace (Negative); Nitrite Urine Negative (Negative); Protein Urine 1+ (Negative); RBC Urine Automated 0-4 /hpf (0-4); Specific Gravity Urine 1.021 (1.000-1.030); Urobilinogen Urine Negative (Negative)
[2021-06-27] MEDS: Patient's ALLERGY Info needs ENTERED SCH ×3 (19:57→21:05)
[2021-06-27] MEDS: traMADol HCL 50 MG TABLET PO PRN (21:09)
[2021-06-27] MEDS: SODIUM CHLORIDE 0.9% 1000ML 1,000 ML IV SCH (21:14)
[2021-06-27] MEDS: CLOBETASOL PROPIONATE 0.05% OINT 15 GM TUBE EXT SCH (21:32)
[2021-06-27] MEDS: ASPIRIN 81 MG ECTAB PO SCH (21:32)
[2021-06-27] MEDS: LABETALOL HCL 100 MG TAB PO SCH (21:32)
[2021-06-27] MEDS: ACETAMINOPHEN 325 MG TAB PO PRN (21:35)
[2021-06-27] MEDS: HYDROmorphone INJ 0.5 MG/0.5 ML SYR IV PRN (22:19)
[2021-06-27] MEDS: ceFAZolin 1000MG 1,000 MG/7.5 ML SYR IV SCH (22:26)
[2021-06-28] MEDS: HYDROmorphone INJ 0.5 MG/0.5 ML SYR IV PRN ×3 (02:13→16:07)
--- NOTE | 2021-06-28 03:40 | Operative Report (OR) ---
DATE OF SURGERY: 06/27/2021. PREOPERATIVE DIAGNOSIS: Left valgus impacted femoral neck fracture. POSTOPERATIVE DIAGNOSIS: Left valgus impacted femoral neck fracture. OPERATION PERFORMED: Closed reduction and percutaneous pinning, left valgus impacted femoral neck fr acture. SURGEON: José Francisco MD PAINTER AND GRADER CORK SURGEON: Niecy Milligan PA-C. No resident or fellows available to assist. ESTIMATED BLOOD LOSS: 5 mL. INTRAVENOUS FLUIDS: 300 mL of crystalloid. SPECIMENS: None. COMPLICATIONS: None. IMPLANTS: Three Synthes 7.3 cannulated short threaded screws measuring 85, 90, and 95 mm. INDICATIONS: Maya is a 75-year-old female who fell at home and presented to the Emergency Room ear lier today with left groin pain. X-rays were obtained demonstrating a valgus impacted left femoral n bridget fracture. She does have a medical history significant for brain tumor, on chemotherapy, which af fects her balance and results in intermittent falls. She states the last fall she had was 1 month ag o prior to this most recent one. I had a long discussion with the patient about her diagnosis. I sp paul to her and her sister, Lucille, about the treatment options. Surgery was recommended to stabilize t he fracture and facilitate healing, decrease the risk of nonunion, malunion or fracture displacement. She does understand that if she were to have a fall that the fracture fixation could fail and that therefore for most likely going to need her in a shelter facility where she can get some extr a help after surgery and after discharge from the hospital. After reviewing all the risks and benefi ts, she elected to proceed. All questions were answered. Informed consent was signed. OPERATIVE FINDINGS: The fracture was reduced and stabilized with 3 Synthes 7.3-mm cannulated screws. DESCRIPTION OF OPERATION: The patient was identified in the preoperative holding area where her surg ical site was marked. She was brought back to the main operating room where general anesthesia was p erformed on her hospital bed. She was then carefully moved over onto the operating room fracture tab le. The nonoperative hip was flexed and abducted and secured with padding. The operative hip was pl aced in the traction boot. Fluoroscopy was brought in. We confirmed that the fracture was valgus im pacted and had not displaced from the time of her previous x-ray. We then positioned the leg so as t o optimize our ability to place wires into it on both the AP and lateral views. We then prepped and draped the leg in the usual sterile fashion. Prior to incision, a multidisciplinary timeout was call ed. All in the room were in agreement. We began by bringing C-arm in and marking out the trajectory of her femoral neck on the drapes. We deborah patel made a small 4 cm long incision along the lateral aspect of the femur. I dissected down to subcu taneous tissues to the level of the fascia. The fascia was not incised. We then placed our first wi re directly into the lateral cortex of the femur. The starting point was optimized on the AP and lat eral fluoroscopic views. We then under fluoroscopy drilled the wire up along the inferior aspect of the femoral neck all the way up to the subchondral bone. Once this was complete, the second wire was placed parallel to this and anterior to this. This was similarly driven up into the femoral head un beronica the AP and lateral fluoroscopic views. Finally, the posterosuperior screw was placed to give us a nice inverted triangle configuration. At this point, we took all our measurements. She measured to a 95 mm along the inferior screw. We d rilled the outer cortex and then placed a self-drilling, self-tapping screw over the wire. It was fi nished by hand. Excellent fixation was obtained with a surprisingly good torque on the screwdriver. Next, a second screw was placed, which was 85 mm in length. This was anterosuperiorly. Similarly go od bite was obtained with this screw, which I was very happy with. Our last screw was a 90-mm screw and was placed posterosuperiorly. Excellent fixation was obtained as well. At this point, the guidewire was removed and we checked fluoroscopic views every 10 degrees between t he horizontal position and the vertical position using the C-arm. There was no evidence of violation of the subchondral bone on any of the views. We then irrigated out the wound with copious amounts o f normal saline. The deep dermal layer was closed with 2-0 Vicryl. Jud[place]ia were used for the skin. 0.5% Marcaine was injected in subcutaneous tissues for postoperative pain control. A total of 20 mL was used. A sterile dressing was then applied. She was then awoken from anesthesia and transferred on to the hospital bed and then to the recovery room in stable condition. POSTOPERATIVE COURSE: The patient will be admitted to the internal medicine service for pain control and monitoring. She will be weightbearing as tolerated. Recommend aspirin for DVT prophylaxis. Mik sow will need to hold her chemotherapy for at least 1 month to allow for fracture healing and her wound to heal up. Job ID: [id number]
[2021-06-28] MEDS: LABETALOL HCL 100 MG TAB PO SCH ×3 (05:01→20:17)
[2021-06-28] MEDS: ceFAZolin 1000MG 1,000 MG/7.5 ML SYR IV SCH (05:38)
[2021-06-28] MEDS: ACETAMINOPHEN 325 MG TAB PO PRN ×2 (05:44→20:21)
[2021-06-28 06:52] LABS: Basophils # (auto) 0.01 K/uL (0-0.2); Basophils % (auto) 0.2 %; Eosinophils # (auto) 0.17 K/uL (0-0.5); Eosinophils % (auto) 2.9 %; Hematocrit (blood only) 33.1 % (37-47); Hemoglobin 10.5 g/dL (12.0-16.0); Immature Granulocytes # (auto) 0.01 K/uL (0.00-0.02); Immature Granulocytes % (auto) 0.2 %; Lymphocytes # (auto) 1.94 K/uL (1.2-3.4); Lymphocytes % (auto) 33.6 %; Mean Corpuscular Hemoglobin 29.2 pg (25-34); Mean Corpuscular Hgb Conc 31.7 g/dL (32-36); Mean Corpuscular Volume 91.9 fL (80-100); Monocytes # (auto) 0.43 K/uL (0.11-0.59); Monocytes % (auto) 7.4 %; Neutrophils # (auto) 3.22 K/uL (1.4-6.5); Neutrophils % (auto) 55.7 %; Platelet Count 147 K/uL (130-400); RDW Coefficient of Variation 14.6 % (11.5-14.5); RDW Standard Deviation 49.1 fL (36.4-46.3); White Blood Count 5.78 K/uL (4.8-10.8)
[2021-06-28 07:06] LABS: BUN Creatinine Ratio 17.4 (10-20); Calcium 8.2 mg/dl (8.5-10.1); Creatinine Clr Calc Pharmacy 56.5 ml/min; Est GFR (African American) 97.3 ml/min; Magnesium 1.6 mg/dl (1.7-2.4); Potassium 3.8 mmol/L (3.5-5.1)
[2021-06-28] MEDS: ASPIRIN 81 MG ECTAB PO SCH ×2 (07:43→20:17)
[2021-06-28] MEDS: amLODIPine BESYLATE 5 MG TAB PO SCH (07:43)
[2021-06-28] MEDS: SODIUM CHLORIDE 0.9% 1000ML 1,000 ML IV SCH (07:43)
[2021-06-28] MEDS: PANTOprazole 40 MG TAB PO SCH (07:44)
[2021-06-28] MEDS: MECLIZINE 12.5 MG TAB PO SCH (07:44)
[2021-06-28] MEDS: SERTRALINE HCL 50 MG TABLET PO SCH (07:44)
[2021-06-28] MEDS: lisinopril 40 MG TAB PO SCH (07:44)
[2021-06-28] MEDS: MULTIVITAMIN TAB PO SCH (07:44)
[2021-06-28] MEDS: CHOLESTYRAMINE LIGHT 4 GM PKT PO SCH (07:44)
[2021-06-28] MEDS: LOPERAMIDE HCL 2 MG CAP PO SCH (07:45)
[2021-06-28] MEDS: CLOBETASOL PROPIONATE 0.05% OINT 15 GM TUBE EXT SCH ×2 (07:45→20:18)
[2021-06-28] MEDS: traMADol HCL 50 MG TABLET PO PRN ×2 (07:50→22:52)
--- NOTE | 2021-06-28 08:31 | Orthopedic Progress Note ---
Date of Service June 28, 2021 Assessment & Plan (1) Closed fracture of left hip: Plan: POD 1- s/p ORIF left femoral neck fracture She may be OOB/WBAT with assistance of a walker Ice/elevation as needed for pain/swelling ASA 81mg BID, SCD's and mobility for DVT prophylaxis. Regular diet as ordered May do ROM of left hip as tolerated, no hip precautions necessary. PT/OT to start today. Case management for disposition needs. Will discuss findings with Dr. Francisco. Will re-eval in AM - will plan to change dressing then. Admission and Anticipated Discharge Date Admission Date: June 27, 2021 Subjective Patient resting in bed, doing well. NO pain at rest, only when she tries to move her left hip. She awake and alert. Denies, chest pain, shortness of breath. Physical Exam Musculoskeletal: Left hip dressing clean, dry and intact. No edema left leg. Distal pulses 1+, sensation normal throughout foot. No calf or knee tenderness, mild tenderness throughout thigh. Unable to perform a straight leg raise today. Strength left ankle 5/5. Tolerated log rolling of left hip with mild pain. Results & Data ([facility]) Vital Signs (Past 12 Hours) Vital Signs Temp Pulse Resp BP Pulse Ox 06/28/21 07:59 37.1 C 64 16 136/72 95 06/28/21 05:04 96 06/28/21 05:03 65 14 164/72 H 85 L 06/28/21 03:16 37.1 C 63 18 164/66 H 95 06/27/21 21:10 37.1 C 68 22 184/81 H 95 Laboratory Results 06/28/21 06/28/21 06/28/21 Range/Units 06:17 06:17 06:17 WBC 5.78 (4.8-10.8) K/uL RBC 3.60 L (4.2-5.4) M/uL Hgb 10.5 L (12.0-16.0) g/dL Hct 33.1 L (37-47) % MCV 91.9 (80-100) fL MCH 29.2 (25-34) pg MCHC 31.7 L (32-36) g/dL RDW Std Deviation 49.1 H (36.4-46.3) fL RDW Coeff of Judie 14.6 H (11.5-14.5) % Plt Count 147 (130-400) K/uL MPV 10.0 (7.4-10.4) fL Immature Gran % (Auto) 0.2 % Neut % (Auto) 55.7 % Lymph % (Auto) 33.6 % Mills % (Auto) 7.4 % Eos % (Auto) 2.9 % Baso % (Auto) 0.2 % Neut # (Auto) 3.22 (1.4-6.5) K/uL Lymph # (Auto) 1.94 (1.2-3.4) K/uL Mills # (Auto) 0.43 (0.11-0.59) K/uL Eos # (Auto) 0.17 (0-0.5) K/uL Baso # (Auto) 0.01 (0-0.2) K/uL Immature Gran # (Auto) 0.01 (0.00-0.02) K/uL PT (9.0-12.0) Seconds INR (0.9-1.1) Sodium (136-145) mmol/L Potassium (3.5-5.1) mmol/L Chloride (98-107) mmol/L Carbon Dioxide (21-32) mmol/L Anion Gap (3-11) BUN (6-23) mg/dl Creatinine (0.6-1.2) mg/dl Est Cr Clr Drug Dosing ml/min Est GFR ( Amer) ml/min Est GFR (Non-Af Amer) ml/min BUN/Creatinine Ratio (10-20) Glucose (70-99(Fasting)) mg/dl Estimat Average Glucose Pending Hemoglobin A1c Pending Calcium (8.5-10.1) mg/dl Magnesium (1.7-2.4) mg/dl Total Bilirubin (0.2-1.0) mg/dl AST (13-39) U/L ALT (7-52) U/L Alkaline Phosphatase (34-104) U/L Total Protein (6.0-8.3) gm/dl Albumin (3.4-5.0) gm/dl Globulin (2.5-4.0) gm/dl Albumin/Globulin Ratio (0.9-2) 25-OH Vitamin D Total 14.9 L (30-100) ng/ml Urine Color Urine Appearance (Clear) Urine pH (4.5-7.5) Ur Specific [place] (1.000-1.030) Urine Protein (Negative) Urine Glucose (UA) (Negative) Urine Ketones (Negative) Urine Blood (Negative) Urine Nitrite (Negative) Urine Bilirubin (Negative) Urine Urobilinogen (Negative) Ur Leukocyte Esterase (Negative) Urine WBC (Auto) (0-5) /hpf Urine RBC (Auto) (0-4) /hpf U Hyaline Cast (Auto) (0-5) /lpf U Epithel Cells (Auto) (0-5) /lpf Urine Bacteria (Auto) (Negative) SARS-CoV-2, RNA, NAAT (NEGATIVE) 06/28/21 06/27/21 06/27/21 Range/Units 06:17 13:47 10:49 WBC (4.8-10.8) K/uL RBC (4.2-5.4) M/uL Hgb (12.0-16.0) g/dL Hct (37-47) % MCV (80-100) fL MCH (25-34) pg MCHC (32-36) g/dL RDW Std Deviation (36.4-46.3) fL RDW Coeff of Judie (11.5-14.5) % Plt Count (130-400) K/uL MPV (7.4-10.4) fL Immature Gran % (Auto) % Neut % (Auto) % Lymph % (Auto) % Mills % (Auto) % Eos % (Auto) % Baso % (Auto) % Neut # (Auto) (1.4-6.5) K/uL Lymph # (Auto) (1.2-3.4) K/uL Mills # (Auto) (0.11-0.59) K/uL Eos # (Auto) (0-0.5) K/uL Baso # (Auto) (0-0.2) K/uL Immature Gran # (Auto) (0.00-0.02) K/uL PT (9.0-12.0) Seconds INR (0.9-1.1) Sodium 136 (136-145) mmol/L Potassium 3.8 (3.5-5.1) mmol/L Chloride 102 (98-107) mmol/L Carbon Dioxide 28 (21-32) mmol/L Anion Gap 6 (3-11) BUN 12 (6-23) mg/dl Creatinine 0.69 (0.6-1.2) mg/dl Est Cr Clr Drug Dosing 56.5 ml/min Est GFR ( Amer) 97.3 ml/min Est GFR (Non-Af Amer) 84.0 ml/min BUN/Creatinine Ratio 17.4 (10-20) Glucose 109 H (70-99(Fasting)) mg/dl Estimat Average Glucose Hemoglobin A1c Calcium 8.2 L (8.5-10.1) mg/dl Magnesium 1.6 L (1.7-2.4) mg/dl Total Bilirubin (0.2-1.0) mg/dl AST (13-39) U/L ALT (7-52) U/L Alkaline Phosphatase (34-104) U/L Total Protein (6.0-8.3) gm/dl Albumin (3.4-5.0) gm/dl Globulin (2.5-4.0) gm/dl Albumin/Globulin Ratio (0.9-2) 25-OH Vitamin D Total (30-100) ng/ml Urine Color Dark Yellow Urine Appearance Clear (Clear) Urine pH 6.0 (4.5-7.5) Ur Specific [place] 1.021 (1.000-1.030) Urine Protein 1+ H (Negative) Urine Glucose (UA) Negative (Negative) Urine Ketones Negative (Negative) Urine Blood Negative (Negative) Urine Nitrite Negative (Negative) Urine Bilirubin Negative (Negative) Urine Urobilinogen Negative (Negative) Ur Leukocyte Esterase Trace H (Negative) Urine WBC (Auto) 5-10 H (0-5) /hpf Urine RBC (Auto) 0-4 (0-4) /hpf U Hyaline Cast (Auto) 1-5 (0-5) /lpf U Epithel Cells (Auto) 10-20 H (0-5) /lpf Urine Bacteria (Auto) Negative (Negative) SARS-CoV-2, RNA, NAAT NEGATIVE (NEGATIVE) 06/27/21 06/27/21 06/27/21 Range/Units 10:38 10:38 10:38 WBC 7.07 (4.8-10.8) K/uL RBC 4.01 L (4.2-5.4) M/uL Hgb 11.5 L (12.0-16.0) g/dL Hct 36.1 L (37-47) % MCV 90.0 (80-100) fL MCH 28.7 (25-34) pg MCHC 31.9 L (32-36) g/dL RDW Std Deviation 48.1 H (36.4-46.3) fL RDW Coeff of Judie 14.6 H (11.5-14.5) % Plt Count 177 (130-400) K/uL MPV 9.9 (7.4-10.4) fL Immature Gran % (Auto) 0.3 % Neut % (Auto) 65.3 % Lymph % (Auto) 27.2 % Mills % (Auto) 4.8 % Eos % (Auto) 2.3 % Baso % (Auto) 0.1 % Neut # (Auto) 4.62 (1.4-6.5) K/uL Lymph # (Auto) 1.92 (1.2-3.4) K/uL Mills # (Auto) 0.34 (0.11-0.59) K/uL Eos # (Auto) 0.16 (0-0.5) K/uL Baso # (Auto) 0.01 (0-0.2) K/uL Immature Gran # (Auto) 0.02 (0.00-0.02) K/uL PT 10.7 (9.0-12.0) Seconds INR 1.0 (0.9-1.1) Sodium 137 (136-145) mmol/L Potassium 3.7 (3.5-5.1) mmol/L Chloride 103 (98-107) mmol/L Carbon Dioxide 28 (21-32) mmol/L Anion Gap 6 (3-11) BUN 12 (6-23) mg/dl Creatinine 0.64 (0.6-1.2) mg/dl Est Cr Clr Drug Dosing 60.9 ml/min Est GFR ( Amer) 99.8 ml/min Est GFR (Non-Af Amer) 86.1 ml/min BUN/Creatinine Ratio 18.8 (10-20) Glucose 113 H (70-99(Fasting)) mg/dl Estimat Average Glucose Hemoglobin A1c Calcium 9.0 (8.5-10.1) mg/dl Magnesium (1.7-2.4) mg/dl Total Bilirubin 0.5 (0.2-1.0) mg/dl AST 23 (13-39) U/L ALT 22 (7-52) U/L Alkaline Phosphatase 86 (34-104) U/L Total Protein 6.4 (6.0-8.3) gm/dl Albumin 3.7 (3.4-5.0) gm/dl Globulin 2.7 (2.5-4.0) gm/dl Albumin/Globulin Ratio 1.4 (0.9-2) 25-OH Vitamin D Total (30-100) ng/ml Urine Color Urine Appearance (Clear) Urine pH (4.5-7.5) Ur Specific [place] (1.000-1.030) Urine Protein (Negative) Urine Glucose (UA) (Negative) Urine Ketones (Negative) Urine Blood (Negative) Urine Nitrite (Negative) Urine Bilirubin (Negative) Urine Urobilinogen (Negative) Ur Leukocyte Esterase (Negative) Urine WBC (Auto) (0-5) /hpf Urine RBC (Auto) (0-4) /hpf U Hyaline Cast (Auto) (0-5) /lpf U Epithel Cells (Auto) (0-5) /lpf Urine Bacteria (Auto) (Negative) SARS-CoV-2, RNA, NAAT (NEGATIVE) (1) Closed fracture of left hip Encounter type: initial encounter Qualified Code(s): S72.002A - Fracture of unspecified part of neck of left femur, initial encounter for closed fracture
[2021-06-28] MEDS ORDERED: MAGNESIUM SULFATE / D5W 1 GM/100 ML BAG IV ONE (09:04)
[2021-06-28] MEDS: LORazepam 0.5 MG TAB PO PRN (20:21)
--- NOTE | 2021-06-28 23:41 | Hospitalist Progress Note ---
Date of Service June 28, 2021 Assessment & Plan (1) Closed fracture of left hip: (2) Fall: Plan: S/P day ORIF left hip cannulated screw performed by dr. Francisco No postop complication Hgb 10.5 toay Continue pain control Continue incentive spirometry PT/OT eval Fall precaution Continue monitor closely Recurrent meningioma. history of surgery in 2019. Currently getting chemo Follow up with Heme/Onc. Diabetes Hba1c 6.8 during this admission Will discuss about lifestyle modification Will consult public health educator Continue monitor BS Check A1c in 3 to 6 months Hypertension Continue amlodipine and labetalol and lisinopril Continue monitor the blood pressure. Chronic kidney disease stage III Creatinine stable Gastroesophageal reflux disease. On omeprazole. Depression On sertraline. Deep venous thrombosis prophylaxis asa 81mg BID as per ortho Admission and Anticipated Discharge Date Admission Date: June 27, 2021 Subjective Pt was seen and examined for post op follow up Lying in bed with no acute distress Pt said that she does have pain when she moves the leg Family at bedside and provided them with updates Denies any chest pain, palpitation, dizziness and SOB Review of Systems Review of Systems: All systems reviewed & are unremarkable except as noted in Subjective Physical Exam Physical Exam: General- No acute distress Head- atraumatic Eyes- PERRL, EOMI, ENT- oropharynx clear Neck- supple, no JVD Lungs- clear to auscultation Heart- regular rhythm; no murmur Abdomen- normal bowel sounds, soft, nontender Extremities- no calf tenderness, left hip tenderness Neuro- alert, oriented x 3; PERRL, EOMI; no facial palsy; no dysarthria Skin- warm & dry Results & Data Results & Data ([facility]) Vital Signs (Past 12 Hours) Vital Signs Temp Pulse Resp BP Pulse Ox 06/28/21 21:50 36.9 C 66 18 179/72 H 93 06/28/21 20:21 79 194/85 H 06/28/21 20:15 80 198/89 H 91 06/28/21 16:10 37.0 C 76 18 179/72 H 06/28/21 11:46 95 (1) Closed fracture of left hip Encounter type: initial encounter Qualified Code(s): S72.002A - Fracture of unspecified part of neck of left femur, initial encounter for closed fracture (2) Fall Encounter type: initial encounter Qualified Code(s): W19.XXXA - Unspecified fall, initial encounter
[2021-06-29] MEDS: ACETAMINOPHEN 325 MG TAB PO PRN ×2 (04:10→19:42)
[2021-06-29] MEDS: LABETALOL HCL 100 MG TAB PO SCH ×3 (04:10→19:48)
[2021-06-29] MEDS: HYDROmorphone INJ 0.5 MG/0.5 ML SYR IV PRN ×3 (04:58→20:37)
[2021-06-29] MEDS: lisinopril 40 MG TAB PO SCH (07:57)
[2021-06-29] MEDS: amLODIPine BESYLATE 5 MG TAB PO SCH (07:57)
[2021-06-29] MEDS: SERTRALINE HCL 50 MG TABLET PO SCH (07:58)
[2021-06-29] MEDS: CHOLESTYRAMINE LIGHT 4 GM PKT PO SCH (07:58)
[2021-06-29] MEDS: PANTOprazole 40 MG TAB PO SCH (07:58)
[2021-06-29] MEDS: MULTIVITAMIN TAB PO SCH (07:58)
[2021-06-29] MEDS: ASPIRIN 81 MG ECTAB PO SCH ×2 (07:58→21:12)
[2021-06-29] MEDS: MECLIZINE 12.5 MG TAB PO SCH (07:58)
[2021-06-29] MEDS: CLOBETASOL PROPIONATE 0.05% OINT 15 GM TUBE EXT SCH ×2 (07:58→21:12)
[2021-06-29] MEDS: LOPERAMIDE HCL 2 MG CAP PO SCH (08:03)
[2021-06-29 08:24] LABS: Estimated Average Glucose 148 mg/dl; Hemoglobin A1C 6.8 % (4.5-5.6)
[2021-06-29 08:37] LABS: Hematocrit (blood only) 33.9 % (37-47); Hemoglobin 10.8 g/dL (12.0-16.0); Mean Corpuscular Hemoglobin 28.9 pg (25-34); Mean Corpuscular Hgb Conc 31.9 g/dL (32-36); Mean Corpuscular Volume 90.6 fL (80-100); Mean Platelet Volume 10.1 fL (7.4-10.4); Platelet Count 131 K/uL (130-400); RDW Coefficient of Variation 14.5 % (11.5-14.5); RDW Standard Deviation 48.4 fL (36.4-46.3); Red Blood Count 3.74 M/uL (4.2-5.4); White Blood Count 5.33 K/uL (4.8-10.8)
[2021-06-29] MEDS: traMADol HCL 50 MG TABLET PO PRN (11:29)
--- NOTE | 2021-06-29 11:58 | Orthopedic Progress Note ---
Date of Service June 29, 2021 Assessment & Plan (1) Closed fracture of left hip: Plan: 75-year-old female postop day 2 status post ORIF left hip cannulated screw, doing well -Dressing was changed today to 4 x 4's, Tegaderm. Reinforce as needed -Weightbearing as tolerated with walker to assist her in ambulation -PT/OT -DVT prophylaxis: Recommend 81 mg aspirin twice a day x30 days, SCDs/ TEDs -Pain control: Per primary -Case management for routine discharge planning/needs -Follow-up 10 to [address] Francisco Admission and Anticipated Discharge Date Admission Date: June 27, 2021 Subjective Patient seen and examined bedside. She reports that she is doing well and her pain is well controlled. She does have some pain raising her leg when she is sitting in her chair. She is working on physical therapy. She denies any fevers, chills, chest pain, shortness of breath, nausea She is urinating okay. She has not had a bowel movement yet. She is eating and drinking okay. Review of Systems Review of Systems: Per HPI Physical Exam Physical Exam: General: Pt laying in hospital bed AA&O, in NAD, calm and cooperative during exam Lower Extremity: Dressing in tact and not saturated. Incisions clean, dry and with minimal drainage and no surrounding erythema, warmth or purulent drainage. Pt has full ROM of ankle and all 5 digits. Pt has 5/5 strength with resisted DF/PF. SLR in tact. Calf supple and non tender. NVI with sensation to light touch distally and good distal pulses present. Lower extremity noted to have good color and temperature with no signs of vascular or lymphatic insufficiency. Dressing was changed today to 4 x 4's and Tegaderm. Results & Data ([facility]) Vital Signs (Past 12 Hours) Vital Signs Temp Pulse Pulse Resp BP BP Pulse Ox 06/29/21 11:39 37.1 C 66 15 130/70 92 06/29/21 07:53 36.6 C 72 16 120/60 91 06/29/21 06:11 184/73 H 06/29/21 05:02 79 188/91 H 06/29/21 04:12 79 214/81 H 97 (1) Closed fracture of left hip Encounter type: initial encounter Qualified Code(s): S72.002A - Fracture of unspecified part of neck of left femur, initial encounter for closed fracture
--- NOTE | 2021-06-29 20:53 | CT Scan Report ---
CT OF THE HEAD WITHOUT CONTRAST CLINICAL HISTORY: Headache. COMPARISON STUDY: Head CT June 27, 2021. CT DOSE: 537.48 mGy.cm TECHNIQUE: Helical axial images of the head were obtained without IV contrast. Automated exposure con trol was utilized for the study. A dose lowering technique was utilized adhering to the principles o f ALARA. FINDINGS: Occipital craniectomy is noted. Operative bed fluid collection is present. This is similar to prior exam. Encephalomalacia within the cerebellum is greater within the left cerebellar hemispher e. Ventricular system is unremarkable. 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 White matter hypodensities are similar to prior exam. Possible lac unar infarct within left basal ganglia is unchanged. The appearance of the brain is unchanged. There are no findings to suggest acute dural sinus thrombosis or acute territorial infarct. IMPRESSION: 1. No acute intracranial findings. No change in appearance of the brain. 2. Redemonstration of a 4.1 x 3.6 cm hyperdense mass centered within the splenium of the corpus callo sum. This is consistent with a neoplasm. Although pathologically indeterminate, the appearance raises the possibility of [employer] lymphoma. 3. Stable postoperative findings within the posterior fossa. ACT 112: Negative or not required by law. Electronically signed by: Trino Mcdermott M.D. 06/29/2021 8:50 PM
--- NOTE | 2021-06-29 21:57 | Hospitalist Progress Note ---
Date of Service June 29, 2021 Assessment & Plan (1) Closed fracture of left hip: (2) Fall: Plan: S/P day #2 ORIF left hip cannulated screw performed by dr. Francisco No postop complication Hgb 10.8 today Ortho recommended Weightbearing as tolerated with walker to assist her in ambulation Continue pain control Continue incentive spirometry Continue PT/OT eval Fall precaution Continue monitor closely Recurrent meningioma. history of surgery in 2019. Currently getting chemo Follow up with Heme/Onc. Diabetes Hba1c 6.8 during this admission Discussed about lifestyle modification Will consult special education case manager Continue monitor BS Check A1c in 3 to 6 months Hypertension Continue amlodipine and labetalol and lisinopril Continue monitor the blood pressure. Chronic kidney disease stage III Creatinine stable Gastroesophageal reflux disease. On omeprazole. Depression On sertraline. Deep venous thrombosis prophylaxis asa 81mg BID as per ortho disposition Waiting for placement to rehab Admission and Anticipated Discharge Date Admission Date: June 27, 2021 Subjective Pt was seen and examined for post op follow up Sitting in chair with no acute distress Denies any chest pain, palpitation, dizziness and SOB Review of Systems Review of Systems: All systems reviewed & are unremarkable except as noted in Subjective Physical Exam Physical Exam: General- No acute distress Head- atraumatic Eyes- PERRL, EOMI, ENT- oropharynx clear Neck- supple, no JVD Lungs- clear to auscultation Heart- regular rhythm; no murmur Abdomen- normal bowel sounds, soft, nontender Extremities- no calf tenderness, left hip tenderness Neuro- alert, oriented x 3; PERRL, EOMI; no facial palsy; no dysarthria Skin- warm & dry Results & Data Results & Data ([facility]) Vital Signs (Past 12 Hours) Vital Signs Temp Pulse Pulse Resp BP Pulse Ox 06/29/21 19:46 37.3 C 74 16 201/70 H 92 06/29/21 15:34 36.8 C 66 17 193/83 H 90 06/29/21 11:39 37.1 C 66 15 130/70 92 (1) Closed fracture of left hip Encounter type: initial encounter Qualified Code(s): S72.002A - Fracture of unspecified part of neck of left femur, initial encounter for closed fracture (2) Fall Encounter type: initial encounter Qualified Code(s): W19.XXXA - Unspecified fall, initial encounter
[2021-06-30] MEDS: LABETALOL HCL 100 MG TAB PO SCH ×3 (04:07→19:25)
[2021-06-30] MEDS: traMADol HCL 50 MG TABLET PO PRN (04:54)
[2021-06-30] MEDS: amLODIPine BESYLATE 5 MG TAB PO SCH (09:09)
[2021-06-30] MEDS: PANTOprazole 40 MG TAB PO SCH (09:09)
[2021-06-30] MEDS: ASPIRIN 81 MG ECTAB PO SCH ×2 (09:09→19:24)
[2021-06-30] MEDS: MECLIZINE 12.5 MG TAB PO SCH (09:10)
[2021-06-30] MEDS: SERTRALINE HCL 50 MG TABLET PO SCH (09:10)
[2021-06-30] MEDS: MULTIVITAMIN TAB PO SCH (09:10)
[2021-06-30] MEDS: CLOBETASOL PROPIONATE 0.05% OINT 15 GM TUBE EXT SCH ×2 (09:10→19:26)
[2021-06-30] MEDS: lisinopril 40 MG TAB PO SCH (09:10)
[2021-06-30] MEDS: CHOLESTYRAMINE LIGHT 4 GM PKT PO SCH (09:10)
[2021-06-30] MEDS: LOPERAMIDE HCL 2 MG CAP PO SCH (09:13)
--- NOTE | 2021-06-30 10:10 | Orthopedic Progress Note ---
Date of Service June 30, 2021 Assessment & Plan (1) Closed fracture of left hip: Plan: postop day 3 status post ORIF left hip cannulated screw, doing well Dressing was kept in place Ice with easy wrap -Weightbearing as tolerated with walker to assist her in ambulation -PT/OT -DVT prophylaxis: Recommend 81 mg aspirin twice a day x30 days, SCDs/ TEDs -Pain control: Per primary -Case management for routine discharge planning/needs -Follow-up 10 to [address] Francisco Admission and Anticipated Discharge Date Admission Date: June 27, 2021 Subjective 75-year-old female seen this morning for follow-up after having an open reduction internal fixation for a left hip fracture. Patient states she is doing very well. States her pain is well controlled with the p.o. pain medication. She states that she is able to partake in physical therapy and was able to ambulate with assistance and the use of her walker. 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 Currently she denies chest pain, shortness of breath, fever, chills, sweats, lethargy, numbness or tingling in her left lower extremity, nausea, vomiting, and diarrhea or difficulty voiding. She states she has yet to move her bowels. She also makes it known that she has a great support system at home. Review of Systems Review of Systems: All systems reviewed & are unremarkable except as noted in Subjective Physical Exam Physical Exam: Left hip: Dressing is clean dry and intact. Patient does have tenderness to palpation circumferentially around the dressing. She is able to perform an active assisted straight leg raise test. She has no pain with resisted dorsi or plantarflexion of her foot. Her calf is soft and supple nontender to palpation. Light hip flexion, internal/external rotation causes only minimal tension. Logroll test negative. Patient's peripheral pulses are 2+. She is neurovascularly intact in the left lower extremity. Results & Data ([facility]) Vital Signs (Past 12 Hours) Vital Signs Temp Pulse Resp BP Pulse Ox 06/30/21 06:33 37.0 C 69 18 174/75 H 94 06/30/21 04:58 78 183/80 H 06/30/21 04:06 70 207/79 H Diagnostic Findings Laboratory Results WBC 5.33 K/uL (4.8-10.8) 06/29/21 08:20 RBC 3.74 M/uL (4.2-5.4) L 06/29/21 08:20 Hgb 10.8 g/dL (12.0-16.0) L 06/29/21 08:20 Hct 33.9 % (37-47) L 06/29/21 08:20 MCV 90.6 fL (80-100) 06/29/21 08:20 MCH 28.9 pg (25-34) 06/29/21 08:20 MCHC 31.9 g/dL (32-36) L 06/29/21 08:20 RDW Std Deviation 48.4 fL (36.4-46.3) H 06/29/21 08:20 RDW Coeff of Judie 14.5 % (11.5-14.5) 06/29/21 08:20 Plt Count 131 K/uL (130-400) 06/29/21 08:20 MPV 10.1 fL (7.4-10.4) 06/29/21 08:20 Immature Gran % (Auto) 0.2 % 06/28/21 06:17 Neut % (Auto) 55.7 % 06/28/21 06:17 Lymph % (Auto) 33.6 % 06/28/21 06:17 [place] % (Auto) 7.4 % 06/28/21 06:17 Eos % (Auto) 2.9 % 06/28/21 06:17 Baso % (Auto) 0.2 % 06/28/21 06:17 Neut # (Auto) 3.22 K/uL (1.4-6.5) 06/28/21 06:17 Lymph # (Auto) 1.94 K/uL (1.2-3.4) 06/28/21 06:17 [place] # (Auto) 0.43 K/uL (0.11-0.59) 06/28/21 06:17 Eos # (Auto) 0.17 K/uL (0-0.5) 06/28/21 06:17 Baso # (Auto) 0.01 K/uL (0-0.2) 06/28/21 06:17 Immature Gran # (Auto) 0.01 K/uL (0.00-0.02) 06/28/21 06:17 PT 10.7 Seconds (9.0-12.0) 06/27/21 10:38 INR 1.0 (0.9-1.1) 06/27/21 10:38 Sodium 136 mmol/L (136-145) 06/28/21 06:17 Potassium 3.8 mmol/L (3.5-5.1) 06/28/21 06:17 Chloride 102 mmol/L (98-107) 06/28/21 06:17 Carbon Dioxide 28 mmol/L (21-32) 06/28/21 06:17 Anion Gap 6 (3-11) 06/28/21 06:17 BUN 12 mg/dl (6-23) 06/28/21 06:17 Creatinine 0.69 mg/dl (0.6-1.2) 06/28/21 06:17 Est Cr Clr Drug Dosing 56.5 ml/min 06/28/21 06:17 Est GFR ( Amer) 97.3 ml/min 06/28/21 06:17 Est GFR (Non-Af Amer) 84.0 ml/min 06/28/21 06:17 BUN/Creatinine Ratio 17.4 (10-20) 06/28/21 06:17 Glucose 109 mg/dl (70-99(Fasting)) H 06/28/21 06:17 Estimat Average Glucose 148 mg/dl 06/28/21 06:17 Hemoglobin A1c 6.8 % (4.5-5.6) H 06/28/21 06:17 Calcium 8.2 mg/dl (8.5-10.1) L 06/28/21 06:17 Magnesium 1.6 mg/dl (1.7-2.4) L 06/28/21 06:17 Total Bilirubin 0.5 mg/dl (0.2-1.0) 06/27/21 10:38 AST 23 U/L (13-39) 06/27/21 10:38 ALT 22 U/L (7-52) 06/27/21 10:38 Alkaline Phosphatase 86 U/L (34-104) 06/27/21 10:38 Total Protein 6.4 gm/dl (6.0-8.3) 06/27/21 10:38 Albumin 3.7 gm/dl (3.4-5.0) 06/27/21 10:38 Globulin 2.7 gm/dl (2.5-4.0) 06/27/21 10:38 Albumin/Globulin Ratio 1.4 (0.9-2) 06/27/21 10:38 25-OH Vitamin D Total 14.9 ng/ml (30-100) L 06/28/21 06:17 Urine Color Dark Yellow 06/27/21 13:47 Urine Appearance Clear (Clear) 06/27/21 13:47 Urine pH 6.0 (4.5-7.5) 06/27/21 13:47 Ur Specific [place] 1.021 (1.000-1.030) 06/27/21 13:47 Urine Protein 1+ (Negative) H 06/27/21 13:47 Urine Glucose (UA) Negative (Negative) 06/27/21 13:47 Urine Ketones Negative (Negative) 06/27/21 13:47 Urine Blood Negative (Negative) 06/27/21 13:47 Urine Nitrite Negative (Negative) 06/27/21 13:47 Urine Bilirubin Negative (Negative) 06/27/21 13:47 Urine Urobilinogen Negative (Negative) 06/27/21 13:47 Ur Leukocyte Esterase Trace (Negative) H 06/27/21 13:47 Urine WBC (Auto) 5-10 /hpf (0-5) H 06/27/21 13:47 Urine RBC (Auto) 0-4 /hpf (0-4) 06/27/21 13:47 U Hyaline Cast (Auto) 1-5 /lpf (0-5) 06/27/21 13:47 U Epithel Cells (Auto) 10-20 /lpf (0-5) H 06/27/21 13:47 Urine Bacteria (Auto) Negative (Negative) 06/27/21 13:47 SARS-CoV-2, RNA, NAAT NEGATIVE (NEGATIVE) 06/27/21 10:49 Impressions Chest X-Ray 06/27/21 10:28 XR chest 1V portable CLINICAL HISTORY: fall COMPARISON STUDY: No previous studies for comparison. FINDINGS: Lung volumes are normal. Lungs are clear. There is no pneumothorax or pleural effusion. Mild cardiomegaly is noted. Mediastinal contours are normal. There is no evidence for pulmonary edema. IMPRESSION: No acute cardiopulmonary findings. ACT 112: Negative or not required by law. Electronically signed by: Trino Mcdermott M.D. 06/27/2021 12:14 PM Hip/Pelvis X-Ray 06/27/21 10:28 XR hip LT 2V w pelvis CLINICAL HISTORY: Left hip pain following fall. COMPARISON: None FINDINGS: Sacroiliac joints and symphysis pubis are intact. No acute proximal right femoral fracture is noted. Note is made of an acute impacted mildly displaced subcapital left femoral fracture. No additional acute fractures are identified. Surgical clips within the pelvis are present. IMPRESSION: Acute mildly displaced impacted subcapital left femoral fracture. ACT 112: Negative or not required by law. Electronically signed by: Trino Mcdermott M.D. 06/27/2021 12:13 PM Knee X-Ray 06/27/21 10:28 XR knee LT 3V CLINICAL HISTORY: fall COMPARISON: None FINDINGS: Alignment of the left knee is anatomic. No left knee joint effusion is present. No acute fracture. There is mild patellofemoral compartment osteoarthritis. IMPRESSION: No acute fracture within the left knee. ACT 112: Negative or not required by law. Electronically signed by: Trino Mcdermott M.D. 06/27/2021 12:[address] 06/27/21 10:29 CT OF THE CERVICAL SPINE WITHOUT CONTRAST CLINICAL HISTORY: Fall. COMPARISON STUDY: No previous studies for comparison. TECHNIQUE: Helical axial images of the cervical spine were obtained without IV contrast. Sagittal and coronal reconstructions were viewed. Automated exposure control was utilized for the study. A dose lowering technique was utilized adhering to the principles of ALARA. FINDINGS: Alignment of the cervical spine is anatomic. Vertebral body heights are maintained. No acute cervical spine fracture or subluxation is present. There is no prevertebral edema. Facet joints are intact. Moderate multilevel degenerative changes within the cervical spine are noted. Postoperative findings consistent with occipital craniectomy are noted. Operative bed fluid collection is present. These findings are better depicted on the head CT which will be reported separately. IMPRESSION: 1. No acute cervical spine fracture or subluxation. 2. Postoperative findings within the posterior fossa. These are better depicted on the head CT which will be reported separately. ACT 112: Negative or not required by law. Electronically signed by: Trino Mcdermott M.D. 06/27/2021 11:[address] 06/27/21 12:[address] WITHOUT CONTRAST CLINICAL HISTORY: Left hip pain following fall. ?frx COMPARISON STUDY: Pelvis and left hip radiographs performed earlier today. TECHNIQUE: Axial images of the left hip were obtained without IV contrast. Sagittal and coronal reconstructions were viewed. Automated exposure control was utilized for the study. A dose lowering technique was utilized adhering to the principles of ALARA. FINDINGS: Note is made of an acute mildly displaced impacted subcapital left femoral fracture. No additional acute fractures are identified on this examination. Alignment of the left hip is otherwise anatomic. There is no evidence for avascular necrosis of the left femoral head. Moderate joint space narrowing and osteophytosis of the left hip is present. No significant abnormalities are identified within visualized portions of the left hemipelvis. IMPRESSION: Acute mildly displaced impacted subcapital left femoral neck fracture. ACT 112: Negative or not required by law. Electronically signed by: Trino Mcdermott M.D. 06/27/2021 1:41 PM Hip X-Ray 06/27/21 14:54 FL hip LT 2-3V CLINICAL HISTORY: Left hip fracture. COMPARISON STUDY: Left hip radiographs and CT of the left hip performed earlier today. FLUOROSCOPY TIME: 1 minute and 12 seconds. FLUOROSCOPIC IMAGES: 2 FINDINGS: Fluoroscopy was provided during open induction and internal fixation of the left femoral neck fracture with 3 cannulated screws. Fracture alignment has improved. Hardware is intact. No unexpected radiopaque foreign bodies. IMPRESSION: Fluoroscopy provided for internal fixation of the left femoral neck fracture with 3 cannulated screws. ACT 112: Negative or not required by law. Electronically signed by: Trino Mcdermott M.D. 06/27/2021 4:[address] 06/29/21 19:57 CT OF THE HEAD WITHOUT CONTRAST CLINICAL HISTORY: Headache. COMPARISON STUDY: Head CT June 27, 2021. CT DOSE: 537.48 mGy.cm TECHNIQUE: Helical axial images of the head were obtained without IV contrast. Automated exposure control was utilized for the study. A dose lowering technique was utilized adhering to the principles of ALARA. FINDINGS: Occipital craniectomy is noted. Operative bed fluid collection is present. This is similar to prior exam. Encephalomalacia within the cerebellum is greater within the left cerebellar hemisphere. Ventricular system is unremarkable. 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 White matter hypodensities are similar to prior exam. Possible lacunar infarct within left basal ganglia is unchanged. The appearance of the brain is unchanged. There are no findings to suggest acute dural sinus thrombosis or acute territorial infarct. IMPRESSION: 1. No acute intracranial findings. No change in appearance of the brain. 2. 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 This is consistent with a neoplasm. Although pathologically indeterminate, the appearance raises the possibility of HELP DESK AGENT lymphoma. 3. Stable postoperative findings within the posterior fossa. ACT 112: Negative or not required by law. Electronically signed by: Trino Mcdermott M.D. 06/29/2021 8:50 PM (1) Closed fracture of left hip Encounter type: initial encounter Qualified Code(s): S72.002A - Fracture of unspecified part of neck of left femur, initial encounter for closed fracture
[2021-06-30] MEDS: ACETAMINOPHEN 325 MG TAB PO PRN ×2 (12:47→19:24)
[2021-06-30] MEDS: LORazepam 0.5 MG TAB PO PRN (19:29)
--- NOTE | 2021-06-30 23:51 | Hospitalist Progress Note ---
Date of Service June 30, 2021 Assessment & Plan (1) Closed fracture of left hip: (2) Fall: Plan: S/P day #3 ORIF left hip cannulated screw performed by dr. Francisco No postop complication Hgb 10.8 Ortho recommended Weightbearing as tolerated with walker to assist her in ambulation Continue pain control Continue incentive spirometry Continue PT/OT eval Fall precaution Waiting for placement to rehab Recurrent meningioma. history of surgery in 2019. Currently getting chemo Follow up with Heme/Onc. 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 Chronic kidney disease stage III Creatinine stable Gastroesophageal reflux disease. On omeprazole. Depression On sertraline. Deep venous thrombosis prophylaxis asa 81mg BID x 30days as per ortho disposition Waiting for placement to rehab Admission and Anticipated Discharge Date Admission Date: June 27, 2021 Subjective Pt was seen and examined for post op follow up Lying in bed with no acute distresswith family at bedside Updates provided to the family Denies any chest pain, palpitation, dizziness and SOB Review of Systems Review of Systems: All systems reviewed & are unremarkable except as noted in Subjective Physical Exam Physical Exam: General- No acute distress Head- atraumatic Eyes- PERRL, EOMI, ENT- oropharynx clear Neck- supple, no JVD Lungs- clear to auscultation Heart- regular rhythm; no murmur Abdomen- normal bowel sounds, soft, nontender Extremities- no calf tenderness, left hip tenderness Neuro- alert, oriented x 3; PERRL, EOMI; no facial palsy; no dysarthria Skin- warm & dry Results & Data Results & Data ([facility]) Vital Signs (Past 12 Hours) Vital Signs Temp Pulse Resp BP Pulse Ox 06/30/21 21:52 36.4 C L 66 16 167/76 H 98 06/30/21 15:49 36.9 C 67 18 179/76 H 94 06/30/21 12:51 82 116/68 06/30/21 12:10 92 (1) Closed fracture of left hip Encounter type: initial encounter Qualified Code(s): S72.002A - Fracture of unspecified part of neck of left femur, initial encounter for closed fracture (2) Fall Encounter type: initial encounter Qualified Code(s): W19.XXXA - Unspecified fall, initial encounter
[2021-07-01] MEDS: ACETAMINOPHEN 325 MG TAB PO PRN (02:08)
[2021-07-01] MEDS: LABETALOL HCL 100 MG TAB PO SCH ×2 (04:03→12:48)
[2021-07-01] MEDS: MECLIZINE 12.5 MG TAB PO SCH (08:18)
[2021-07-01] MEDS: SERTRALINE HCL 50 MG TABLET PO SCH (08:18)
[2021-07-01] MEDS: CHOLESTYRAMINE LIGHT 4 GM PKT PO SCH (08:18)
[2021-07-01] MEDS: MULTIVITAMIN TAB PO SCH (08:18)
[2021-07-01] MEDS: lisinopril 40 MG TAB PO SCH (08:18)
[2021-07-01] MEDS: amLODIPine BESYLATE 5 MG TAB PO SCH (08:18)
[2021-07-01] MEDS: PANTOprazole 40 MG TAB PO SCH (08:18)
[2021-07-01] MEDS: CLOBETASOL PROPIONATE 0.05% OINT 15 GM TUBE EXT SCH (08:20)
[2021-07-01] MEDS: ASPIRIN 81 MG ECTAB PO SCH (08:21)
[2021-07-01] MEDS: LOPERAMIDE HCL 2 MG CAP PO SCH (08:25)
--- NOTE | 2021-07-01 10:02 | Orthopedic Progress Note ---
Date of Service July 01, 2021 Assessment & Plan (1) Closed fracture of left hip: Plan: postop day 4 status post ORIF left hip cannulated screw, doing well Dressing was kept in place Ice with easy wrap -Weightbearing as tolerated with walker to assist her in ambulation -PT/OT -DVT prophylaxis: Recommend 81 mg aspirin twice a day x30 days, SCDs/ TEDs -Pain control: Per primary, would consider taking out Phillip at this time. -Case management for routine discharge planning/needs -Follow-up [address] Francisco, as scheduled. Admission and Anticipated Discharge Date Admission Date: June 27, 2021 Subjective States each day her pain is getting better, mild pain with movement. Has been out of bed with PT. Using walker. Tolerating regular diet. States that she is doing well today. Physical Exam Musculoskeletal: left leg with no significant edema. Able to independently SLR LLE and flex knee to about 90 degrees today. Full ankle ROM, normal sensation, distal pulses 1+. Strength 5/5 at ankle. Dressing clean, dry and intact, left in place today. Results & Data ([facility]) Vital Signs (Past 12 Hours) Vital Signs Temp Pulse Resp BP BP Pulse Ox 07/01/21 07:57 36.6 C 73 16 130/70 94 07/01/21 07:07 37.2 C 73 18 189/89 H 94 (1) Closed fracture of left hip Encounter type: initial encounter Qualified Code(s): S72.002A - Fracture of unspecified part of neck of left femur, initial encounter for closed fracture
--- NOTE | 2021-07-01 10:51 | Hospitalist Progress Note ---
Date of Service July 01, 2021 Assessment & Plan (1) Closed fracture of left hip: (2) Fall: Plan: (1) Closed fracture of left hip: (2) Fall: Plan: S/P day #4 ORIF left hip cannulated screw performed by dr. Francisco No postop complication Hgb 10.8 Ortho recommended Weightbearing as tolerated with walker to assist her in ambulation Continue pain control Continue incentive spirometry Continue PT/OT eval Fall precaution Waiting for placement to rehab -DVT prophylaxis: Recommend 81 mg aspirin twice a day x30 days, SCDs/ TEDs -Follow-up [address] Francisco, as scheduled. Recurrent meningioma. history of surgery in 2019. Currently getting chemo Follow up with Heme/Onc. 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 Chronic kidney disease stage III Creatinine stable Gastroesophageal reflux disease. On omeprazole. Depression On sertraline. Deep venous thrombosis prophylaxis asa 81mg BID x 30days as per ortho disposition - plan to DC to [facility] Admission and Anticipated Discharge Date Admission Date: June 27, 2021 Subjective Patient seen in follow-up of hip fracture, status post hip replacement She is lying in bed in NAD Denies any fevers, chills, chest pain, shortness of breath, abdominal pain, nausea or vomiting Reports her hip is feeling better Review of Systems Review of Systems: All systems reviewed & are unremarkable except as noted in Subjective Physical Exam Physical Exam: General-elderly female, no acute distress Head- atraumatic Eyes- PERRL, EOMI, ENT- oropharynx clear Neck- supple, no JVD Lungs- clear to auscultation Heart- regular rhythm; no murmur Abdomen- normal bowel sounds, soft, nontender Extremities- no calf tenderness, mild left hip tenderness, dressings applied Neuro- alert, oriented x 3; PERRL, EOMI; no facial asymmetry,no dysarthria Skin- warm & dry Results & Data Results & Data ([facility]) Vital Signs (Past 12 Hours) Vital Signs Temp Pulse Resp BP BP Pulse Ox 07/01/21 07:57 36.6 C 73 16 130/70 94 07/01/21 07:07 37.2 C 73 18 189/89 H 94 Medications Administered Current Inpatient Medications Acetaminophen (Acetaminophen 325 Mg Tab) 650 mg PO Q4H PRN PRN Reason: pain/fever Stop: 07/27/21 18:13 Last Admin: 07/01/21 02:08 Dose: 650 mg Documented by: Amlodipine Besylate (Amlodipine Besylate 5 Mg Tab) 5 mg PO DAILY [place] Stop: 07/28/21 08:59 Last Admin: 07/01/21 08:18 Dose: 5 mg Documented by: Aspirin (Aspirin 81 Mg Ectab) 81 mg PO BID [place] Stop: 07/27/21 20:59 Last Admin: 07/01/21 08:21 Dose: 81 mg Documented by: Cholestyramine Resin (Cholestyramine Light 4 Gm Pkt) 4 gm PO QAM [facility] Stop: 07/28/21 08:59 Last Admin: 07/01/21 08:18 Dose: 4 gm Documented by: Clobetasol Propionate (Clobetasol Propionate 0.05% Oint 15 Gm Tube) 1 appln EXT BID [place] Stop: 07/27/21 20:59 Last Admin: 07/01/21 08:20 Dose: 1 appln Documented by: Hydromorphone HCl (Hydromorphone Inj 0.5 Mg/0.5 Ml Syr) 0.5 mg IV Q4H PRN PRN Reason: Pain Stop: 07/11/21 18:13 Last Admin: 06/29/21 20:37 Dose: 0.5 mg Documented by: Labetalol HCl (Labetalol Hcl 100 Mg Tab) 100 mg PO Q8H [place] Stop: 07/27/21 19:59 Last Admin: 07/01/21 04:03 Dose: 100 mg Documented by: Lisinopril (Lisinopril 40 Mg Tab) 40 mg PO DAILY [facility] Stop: 07/28/21 08:59 Last Admin: 07/01/21 08:18 Dose: 40 mg Documented by: Loperamide HCl (Loperamide Hcl 2 Mg Cap) 2 mg PO DAILY [facility] Stop: 07/28/21 08:59 Last Admin: 07/01/21 08:25 Dose: 2 mg Documented by: Lorazepam (Lorazepam 0.5 Mg Tab) 0.5 mg PO HS PRN PRN Reason: Anxiety Stop: 07/27/21 18:13 Last Admin: 06/30/21 19:29 Dose: 0.5 mg Documented by: Meclizine HCl (Meclizine 12.5 Mg Tab) 12.5 mg PO DAILY [facility] Stop: 07/28/21 08:59 Last Admin: 07/01/21 08:18 Dose: 12.5 mg Documented by: Miscellaneous (*Everolimus 10 Mg Tablet* Order Awaiting Action) 1 ea N/A QS [facility] Stop: 07/29/21 15:59 Last Admin: 07/01/21 08:17 Dose: Not Given Documented by: Multivitamins (Multivitamin Tab) 1 tab PO DAILY [facility] Stop: 07/28/21 08:59 Last Admin: 07/01/21 08:18 Dose: 1 tab Documented by: Pantoprazole Sodium (Pantoprazole 40 Mg Tab) 40 mg PO DAILY [facility]; Protocol Stop: 07/28/21 08:59 Last Admin: 07/01/21 08:18 Dose: 40 mg Documented by: Sertraline HCl (Sertraline Hcl 50 Mg Tablet) 50 mg PO DAILY [facility] Stop: 07/28/21 08:59 Last Admin: 07/01/21 08:18 Dose: 50 mg Documented by: Tramadol HCl (Tramadol Hcl 50 Mg Tablet) 50 mg PO BID PRN PRN Reason: Pain Stop: 07/27/21 18:13 Last Admin: 06/30/21 04:54 Dose: 50 mg Documented by: (1) Closed fracture of left hip Encounter type: initial encounter Qualified Code(s): S72.002A - Fracture of unspecified part of neck of left femur, initial encounter for closed fracture (2) Fall Encounter type: initial encounter Qualified Code(s): W19.XXXA - Unspecified fall, initial encounter
--- NOTE | 2021-07-01 11:07 | Discharge Summary ---
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 The patient has a history of recurrent meningioma. She is status post surgery in 2019. 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 Ambulates with a walker. She fell a couple of days ago at home when she was going to bathroom hurriedly when she has lost balance and fell backward, did not hit her head, no loss of consciousness, was able to get up and walk back to her bed but after that she was not able to get up. She lives with her in the farm and sister and her sons live in the same farm. With a walker, she can walk long distances. Denies any other symptoms except for pain in the left hip region. Denies any headache. Has double vision after brain tumor surgery. No runny nose, no sore throat, no cough. No fevers, no chest pain, no shortness of breath. No nausea, no abdominal pain. Normal bladder movements. Currently, resting comfortably and hemodynamically stable. Admission Exam Per Admitting Provider GENERAL: The patient is of moderate build, not in acute distress. VITAL SIGNS: Temperature 37.2, pulse 76, respiratory rate 16, blood pressure 113/84, oxygen 92% on room air. HEENT: Pupils equal, round and reactive to light. Oral mucosa moist. LUNGS: No JVD, no neck masses. CARDIOVASCULAR: S1 and S2 heard. Regular rate and rhythm. No murmur, no gallop. RESPIRATORY: Normal AP diameter. No accessory muscle use. No wheezing, no crackles. ABDOMEN: Soft. Bowel sounds are present, nontender, no distention. CENTRAL NERVOUS SYSTEM: Alert and oriented, left facial droop. Speech is clear. Moves her extremities except for left lower extremity. Obeys commands. Insight is good. EXTREMITIES: Painful left lower extremity movements. No edema, no erythema seen. Principal Diagnosis Closed fracture of left hip, status post ORIF Discharge Exam General-elderly female, no acute distress Head- atraumatic Eyes- PERRL, EOMI, ENT- oropharynx clear Neck- supple, no JVD Lungs- clear to auscultation Heart- regular rhythm; no murmur Abdomen- normal bowel sounds, soft, nontender Extremities- no calf tenderness, mild left hip tenderness, dressings applied Neuro- alert, oriented x 3; PERRL, EOMI; no facial asymmetry,no dysarthria Skin- warm & dry Discharge Data Allergies Allergy/AdvReac Type Severity Reaction Status Date / Time No Known Allergies Allergy Unverified 06/29/21 07:19 Consultations 06/27/21 12:49 Consult Orthopedic Surgery Routine ED Decision to Admit Stat Procedures Performed Operation Date: 06/27/21 15:00 Actual Procedures p ORIF Hip Cannulated Screw - José Francisco MD Ordered Studies 06/27/21 10:28 CT head/brain wo con Stat IMPRESSION: 1. No acute intracranial findings. No acute calvarial fracture. 2. 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 No hydrocephalus. Postoperative findings within the posterior fossa, as described above. 06/27/21 10:29 CT cervical spine wo con Stat IMPRESSION: 1. No acute cervical spine fracture or subluxation. 2. Postoperative findings within the posterior fossa. These are better depicted on the head CT which will be reported separately. 06/27/21 12:14 CT hip LT wo con Stat IMPRESSION: Acute mildly displaced impacted subcapital left femoral neck fracture. 06/27/21 14:54 FL hip LT 2-3V Stat 06/29/21 19:57 CT head/brain wo con Urgent IMPRESSION: 1. No acute intracranial findings. No change in appearance of the brain. 2. 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 This is consistent with a neoplasm. 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 3. Stable postoperative findings within the posterior fossa. Hospital Course (1) Closed fracture of left hip: (2) Fall: (1) Closed fracture of left hip: (2) Fall: Plan: S/P day #4 ORIF left hip cannulated screw performed by dr. Francisco No postop complication Hgb 10.8 Ortho recommended Weightbearing as tolerated with walker to assist her in ambulation Continue pain control Continue incentive spirometry Continue PT/OT eval Fall precaution Waiting for placement to rehab -DVT prophylaxis: Recommend 81 mg aspirin twice a day x30 days, SCDs/ TEDs -Follow-up [address] to [address] Francisco, as scheduled. Recurrent meningioma. history of surgery in 2019. Currently getting chemo Follow up with Heme/Onc. 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 Chronic kidney disease stage III Creatinine stable Gastroesophageal reflux disease. On omeprazole. Depression On sertraline. Deep venous thrombosis prophylaxis asa 81mg BID x 30days as per ortho disposition - plan to DC to [facility] Total Time Total Time Spent Total Time Spent (In Minutes): 40 Discharge Plan Discharge Items Patient Disposition: Transfer Inpatient Rehab Fac Reason For Visit: FALL Discharge Diagnosis: Closed fracture of left hip, status post ORIF Activity: Per Instructions section Non-emergency contact: Surgeon Call non-emergency contact if: you have any medication questions, your symptoms worsen, your pain is not controlled, your temperature is above 101, your wound has increased redness, your wound has increased drainage and your wound pain has increased Follow-up/Referrals: Diogenes Carter PA-C [Physician Elevator Builder] - 07/10/21 3:15 pm PCP,EHSAN [Physician] - Diet: Regular Addtl Attending Provider Instructions: Take aspirin twice a day, to prevent blood clots after surgery. Read instructions per orthopedics as below. Follow-up with orthopedics was scheduled for you for July 10. Addtl Third Loader Provider Instructions: No hip precautions necessary. Ice to left thigh as needed for pain/swelling. Elevate left leg as needed for swelling. Allowed for full range of motion left leg. Use walker to assist at all times when out of bed. You may weight bear as tolerated. Change dressing as needed, but if current dressing stays in place, may leave in place until follow up appointment. May shower with "waterproof" dressing on. Keep incision dry with bathing. Follow up as scheduled in the office in 14 days. Pending Studies at Discharge: No Stand-Alone Forms: [employer] Skilled Items Patient informed of condition?: Yes DNR: No Discharge Level of Care: Acute rehab Communicable Disease: No Discharge Prognosis: Stable Lines: None Urinary Catheter: No Medications and DC Order Prescriptions: New aspirin 81 mg Tablet,Delayed Release (Dr/Ec) 81 mg PO BID 28 Days Qty: 56 RF: 0 Continued quetiapine [Seroquel] 25 mg Tablet 25 mg Feeding Tube HS RF: 0 atorvastatin 40 mg Tablet 40 mg Feeding Tube HS RF: 0 nystatin 100,000 unit/mL Suspension 5 ml PO QID RF: 0 acetaminophen 325 mg Tablet 650 mg Feeding Tube Q4 PRN (Reason: Pain) RF: 0 ipratropium-albuterol 0.5 mg-3 mg(2.5 mg base)/3 mL Solution For Nebulization 3 ml INHALATION Q4 PRN (Reason: Shortness Of Breath) RF: 0 lisinopril 20 mg Tablet 20 mg Feeding Tube DAILY RF: 0 tramadol 50 mg Tablet 50 mg Feeding Tube Q6 PRN (Reason: pain 4-10) RF: 0 bisacodyl 10 mg Suppository 10 mg TX DAILY PRN (Reason: Constipation) RF: 0 cyanocobalamin (vitamin B-12) 1,000 mcg/mL Solution 1 ml IM MO RF: 0 nystatin 100,000 unit/gram Cream 1 applic TOPICAL BID RF: 0 hydrochlorothiazide 12.5 mg Capsule 12.5 mg Feeding Tube QAM RF: 0 Fleet Enema 19-7 gram/118 mL Enema 118 ml TX DAILY PRN (Reason: constipation) RF: 0 clobetasol 0.05 % Ointment 1 applic TOPICAL BID RF: 0 polyethylene glycol 3350 [Miralax] 17 gram/dose Powder 17 g Feeding Tube DAILY PRN (Reason: Constipation) RF: 0 labetalol 100 mg Tablet 200 mg Feeding Tube Q6 RF: 0 ondansetron 4 mg Tablet,Disintegrating 4 mg PO Q4 PRN (Reason: nausea, vomiting) RF: 0 heparin (porcine) 5,000 unit/mL Solution 1 ml SUBCUT Q8 RF: 0 Maalox Maximum Strength 400-400-40 mg/5 mL Suspension 15 ml Feeding Tube Q4 PRN (Reason: Indigestion) RF: 0 multivitamin with iron Tablet 1 tab Feeding Tube DAILY RF: 0 calcium carbonate-vitamin D3 [Calcium 500 + D] 500 mg(1,250mg) -200 unit Tablet 2 tab Feeding Tube BID RF: 0 Aranesp (in polysorbate) 60 mcg/0.3 mL Syringe 0.3 ml subcut WK RF: 0 saliva substitute combo no.12 [place] With Pump 1 spray PO Q2H PRN (Reason: Dry Mouth) RF: 0 multivitamin Tablet 1 tab PO DAILY RF: 0 loperamide 2 mg capsule 2 mg PO DAILY RF: 0 ondansetron HCl 8 mg tablet 8 mg PO Q8H PRN (Reason: Nausea) RF: 0 meclizine 12.5 mg tablet 12.5 mg PO DAILY RF: 0 amlodipine 5 mg tablet 5 mg PO DAILY RF: 0 tramadol 50 mg Tablet 50 mg PO BID PRN (Reason: Pain) RF: 0 dexamethasone 0.5 mg/5 mL solution 1 mg PO QID RF: 0 lorazepam 0.5 mg tablet 0.5 mg PO HS PRN (Reason: Anxiety) RF: 0 cyanocobalamin (vitamin B-12) 1,000 mcg/mL solution 1,000 mcg IM Q30D RF: 0 omeprazole 20 mg capsule,delayed release(DR/EC) 20 mg PO DAILY RF: 0 ergocalciferol (vitamin D2) 1,250 mcg (50,000 unit) capsule 1,250 mcg PO WK RF: 0 clobetasol 0.05 % ointment 1 applic TOPICAL BID RF: 0 labetalol 100 mg tablet 100 mg PO Q8H RF: 0 lisinopril 40 mg tablet 40 mg PO DAILY RF: 0 sertraline 50 mg tablet 50 mg PO DAILY RF: 0 cholestyramine (with sugar) 4 gram powder in packet 1 ea PO QAM RF: 0 acetaminophen 325 mg Capsule 325 mg PO QID PRN (Reason: Pain) RF: 0 everolimus (antineoplastic) 10 mg tablet 10 mg PO DAILY RF: 0 Discontinued cephalexin 500 mg Capsule 500 mg PO BID RF: 0 Discharge Orders: Discharge Order (Routine); Ordered 07/01/21 Ordered By: Bharat Sanders/Other Patient Handouts: A1C Admission Data Admit Date/Time: 06/27/21 15:01 Attending Provider: Bharat Head Admit Provider: Gómez Regalado Primary Care Provider: Pablito Salazar Other Providers: Gómez Regalado ; José Francisco ; [facility]
[2021-07-01] MEDS: traMADol HCL 50 MG TABLET PO PRN (12:48)
== END 2021-07-01 15:18 | DRG 481 ==
LOC: ED 10:16 → OR 15:00 → 3W 15:01 → MERGE 15:01 → SUATTDRO 15:01 → OR 17:18

== ENCOUNTER 2022-01-24 15:53 | Inpatient (IN) ==
[2022-01-24] MEDS ORDERED: LORazepam 2 MG/1 ML VIAL ONE (16:12)
--- NOTE | 2022-01-24 16:15 | CT Scan Report ---
CT head/brain wo con CLINICAL HISTORY: unresponsive Technique: Contiguous axial CT images of the head were acquired from the base of the skull to the xuan meera without intravenous contrast administration. Images were viewed [facility] Automated dose lowering techniques and/or adjustment according to patient size were utilized for this exam. Comparison: Comparison is made to CT head 06/29/2021 Findings: Minimal enlargement of previously noted hyperdense mass in the splenium of the corpus callosum, measu ring 46 x 38 mm compared to 41 x 36 mm on prior exam. Encephalomalacia in the left posterior fossa is again seen with postsurgical changes in the associated hernia. Imaged portions of the paranasal sinuses and mastoid air cells are clear. The orbits appear normal. There are no acute fractures of the calvaria or scalp swelling. Impression: Redemonstration of posterior midline intracranial mass which appears slightly enlarged from prior exa m. Postsurgical changes are seen in the posterior fossa. No evidence of acute abnormality, in particu lar no hemorrhage or CT evidence of infarct. ACT 112: Negative or not required by law. Electronically signed by: Diogenes Werner M.D. 01/24/2022 4:13 PM
[2022-01-24] MEDS ORDERED: levETIRAcetam 1,000 MG in 0.9 % SODIUM CHLORIDE 100 ML IV STA (16:19)
[2022-01-24] MEDS ORDERED: LORazepam 2 MG/1 ML VIAL IV STA (16:20)
[2022-01-24 16:24] LABS: Hematocrit (blood only) 38.1 % (34.1-44.9); Hemoglobin 11.1 g/dl (12.0-16.0); Mean Corpuscular Hgb Conc 29.1 g/dL (32.0-36.0); Mean Corpuscular Volume 96.2 fL (80.0-100.0); Mean Platelet Volume 9.8 fL (9.4-12.3); Platelet Count 489 K/uL (130-400); RDW Coefficient of Variation 18.4 % (11.5-14.5); RDW Standard Deviation 63.4 fL (36.4-46.3); Red Blood Count 3.96 M/uL (3.93-5.22); White Blood Count 26.37 K/ul (4.8-10.8)
--- NOTE | 2022-01-24 16:29 | Emergency Department Note ---
History of Present Illness General Chief complaint: Unresponsive Stated complaint: unresponsive History of Present Illness 76-year-old female presents to the ED with a chief complaint of unresponsiveness. Apparently the patient lives with her at home. He was helping her to the bathroom. He states that at that time she was unable to move her left side, according to the sister who presented when the patient presented. The was not able to get her back into bed and she was lying on the floor when the patient's daughter arrived. She was covered in feces, according to the patient's sister. The patient was unresponsive when she got there although she did squeeze her hand. The patient then had a tonic-clonic seizure at the residence before EMS arrival, according to the sister. The patie nt had additional tonic-clonic seizure for EMS for which 2 mg of IV Versed was administered. Prehospital blood sugar was 305. The patient does have history of meningioma surgery in 2019. She has been getting chemotherapy for this to control its size. Her last chemo was last months. She apparently has some chronic mild left hemiparesis from 2019 internal medicine note that I reviewed. She does have a history of type 2 diabetes, hypertension and chronic kidney disease. Last known well was possibly this morning although it was unclear. The patient reportedly is mostly bedbound. No seizure history. Sister reports that the patient did not take her blood pressure medication this morning, per her . The patient presented by EMS and went straight to CT scan. I did see the patient in the CT scanner. The patient did have a tonic-clonic seizure there and I did use 2 mg of the IV Versed that the EMS had available in the CT scanner for her seizure there. Home Medications Medication Instructions Recorded Confirmed Type acetaminophen 325 mg capsule 325 mg PO Q6 PRN Fever Or Pain 06/27/21 01/24/22 History amlodipine 5 mg tablet 5 mg PO QAM 06/27/21 01/24/22 History cyanocobalamin (vitamin B-12) 1,000 mcg IM Q30D 06/27/21 01/24/22 History 1,000 mcg/mL injection solution labetalol 100 mg tablet 100 mg PO TID 06/27/21 01/24/22 History lisinopril 40 mg tablet 40 mg PO QAM 06/27/21 01/24/22 History loperamide 2 mg capsule 2 mg PO UD PRN Loose Stool 06/27/21 01/24/22 History lorazepam 0.5 mg tablet 0.25 mg PO HS PRN Anxiety/sleep 06/27/21 01/24/22 History meclizine 12.5 mg tablet 12.5 mg PO Q8 PRN Dizziness 06/27/21 01/24/22 History multivitamin 1 tab PO DAILY 06/27/21 01/24/22 History ondansetron HCl 8 mg tablet 8 mg PO Q8H PRN Nausea 06/27/21 01/24/22 History tramadol 50 mg tablet 50 mg PO Q6 PRN Pain, Moderate 06/27/21 01/24/22 History aspirin 81 mg tablet,delayed 81 mg PO DAILY 01/24/22 01/24/22 History release sertraline 100 mg tablet 100 mg PO QAM 01/24/22 01/24/22 History Allergies Allergy/AdvReac Type Severity Reaction Status Date / Time No Known Allergies Allergy Unverified 01/24/22 16:58 Past Med/Surg History Medical History (Updated 01/24/22 @ 19:59 by Wade Romero DO) Brain mass HLD (hyperlipidemia) Seizure Surgical History H/O brain surgery Social History Smoking Status: Never smoker Preferred Language: Upper Sorbian Communication Ability: Effective 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 marital status: Single Current Living Situation: Family Current Living Situation Comment: [facility] Feels Safe at Home: Yes Assistive Devices: Walker Review of Systems A total of 10 systems reviewed and were otherwise negative Unobtainable due to cognitive status Physical Exam Vital Signs Vital Signs - 24 hr 01/24/22 15:56 01/24/22 16:12 01/24/22 16:30 Pulse Rate 115 H 112 H 106 H Pulse Rate from SpO2 Sensor 104 H Pulse Rhythm Regular Pulse Strength Normal Respiratory Rate 16 17 19 Respiratory Effort / Characteristics Non-Labored Respiratory Depth Normal Respiratory Pattern Regular Blood Pressure 112/84 112/84 152/89 H Blood Pressure Mean 93 93 110 Blood Pressure Position Lying Pulse Oximetry 98 98 94 Oxygen Delivery Method Non-rebreather Non-rebreather Non-rebreather Oxygen Flow Rate 15 15 15 Sepsis Recent Fever Within 48 Hours No Sepsis New/Unexplained Change in Mental Status Yes Sepsis Action Taken by Nursing Physician Notified 01/24/22 16:34 01/24/22 16:45 01/24/22 17:00 Pulse Rate 104 H 102 H 108 H Pulse Rate from SpO2 Sensor 125 H 111 H 109 H Pulse Rhythm Pulse Strength Respiratory Rate 12 16 16 Respiratory Effort / Characteristics Respiratory Depth Respiratory Pattern Blood Pressure 155/87 H 153/89 H 167/92 H Blood Pressure Mean 109 110 117 Blood Pressure Position Pulse Oximetry 98 98 98 Oxygen Delivery Method Non-rebreather Non-rebreather Non-rebreather Oxygen Flow Rate 15 15 15 Sepsis Recent Fever Within 48 Hours Sepsis New/Unexplained Change in Mental Status Sepsis Action Taken by Nursing 01/24/22 17:15 01/24/22 17:30 01/24/22 17:46 Pulse Rate 109 H 107 H 108 H Pulse Rate from SpO2 Sensor 118 H 106 H 109 H Pulse Rhythm Pulse Strength Respiratory Rate 16 17 22 Respiratory Effort / Characteristics Respiratory Depth Respiratory Pattern Blood Pressure 162/108 H 134/104 H 173/98 H Blood Pressure Mean 126 114 123 Blood Pressure Position Pulse Oximetry 96 98 100 Oxygen Delivery Method Non-rebreather Non-rebreather Non-rebreather Oxygen Flow Rate 15 15 15 Sepsis Recent Fever Within 48 Hours Sepsis New/Unexplained Change in Mental Status Sepsis Action Taken by Nursing 01/24/22 18:00 Pulse Rate 108 H Pulse Rate from SpO2 Sensor 106 H Pulse Rhythm Pulse Strength Respiratory Rate 18 Respiratory Effort / Characteristics Respiratory Depth Respiratory Pattern Blood Pressure 164/107 H Blood Pressure Mean 126 Blood Pressure Position Pulse Oximetry 99 Oxygen Delivery Method Non-rebreather Oxygen Flow Rate 15 Sepsis Recent Fever Within 48 Hours Sepsis New/Unexplained Change in Mental Status Sepsis Action Taken by Nursing CONSTITUTIONAL/VITAL SIGNS: Reviewed / noted above. GENERAL: Unresponsive. INTEGUMENTARY: Warm, dry, and slightly pale. HEAD: Normocephalic. EYES: without scleral icterus or trauma. ENT/OROPHARYNX: clear and moist. Nasal trumpet in place in the right nares. LYMPHADENOPATHY/NECK: Is supple without lymphadenopathy or meningismus. RESPIRATORY: Clear to auscultation bilaterally. CARDIOVASCULAR: Regular rate and rhythm. GI/ABDOMEN: Soft NEUROLOGICAL: Patient was unresponsive when she initially arrived. She then developed a tonic-clonic seizure with a leftward gaze. MUSCULOSKELETAL: No obvious trauma. TRIAGE NURSING DOCUMENTATION REVIEWED. Course Administered Medications Discontinued Medications Diazepam (Diazepam 5 Mg/Ml Inj 10ml Vial) Confirm Administered Dose 5 mg .ROUTE .STK-MED ONE Stop: 01/24/22 16:14 Last Admin: 01/24/22 16:31 Dose: Not Given Documented By: ALY Diazepam (Diazepam 5 Mg/Ml Inj 10ml Vial) 5 mg IV NOW STA Stop: 01/24/22 16:21 Last Admin: 01/24/22 16:19 Dose: 5 mg Documented By: NH Levetiracetam 1,000 mg/ Sodium (Chloride) 110 mls @ 440 mls/hr IV NOW STA Stop: 01/24/22 16:33 Last Infusion: 01/24/22 17:16 Dose: 0 mls/hr Documented By: Admin: 01/24/22 16:26 Dose: 440 mls/hr Documented By: NH Sodium Chloride (Nss) 500 mls @ 999 mls/hr IV .Q31M DIEGO Stop: 01/24/22 17:00 Last Infusion: 01/24/22 17:16 Dose: 0 mls/hr Documented By: Admin: 01/24/22 16:32 Dose: 999 mls/hr Documented By: ALY Lorazepam (Lorazepam 1 Mg/1 Ml Syr) Confirm Administered Dose 1 mg .ROUTE .STK- MED ONE Stop: 01/24/22 16:13 Last Admin: 01/24/22 16:31 Dose: Not Given Documented By: ALY Lorazepam (Lorazepam 1 Mg/1 Ml Syr) 1 mg IV NOW STA; Protocol Stop: 01/24/22 16:21 Last Admin: 01/24/22 16:31 Dose: 1 mg Documented By: ALY Critical Care Time Critical Care Time: Yes Total Critical Care Time: 50 I have personally spent 50 minutes of critical care time in the direct management of this patient. This includes bedside care, interpretation of diagnostic studies, and testing, discussion with consultants, patient, and family members, and other required patient management activities. This 50 minutes is in excess of all separately billable procedures. Medical Decision Making Differential Diagnosis Differential includes acute cardiac dysrhythmia, microinfarction, CVA, TIA, dehydration, anemia, electrolyte disturbance, seizure, trauma, intracranial bleeding, acute vascular catastrophe, thoracic aortic dissection, PE, abdominal aortic aneurysm rupture, infection, hypoglycemia, overdose, trauma. Medical Records Attestation: I reviewed the patient's medical records. Home Medications Current Medication List: was personally reviewed by me Laboratory Data Attestation: I reviewed the patient's lab results. Result diagrams: 01/24/22 16:15 01/24/22 16:15 Lab Results 01/24/22 01/24/22 01/24/22 Range/Units 16:15 16:15 16:16 WBC 26.37 H (4.8-10.8) K/ul RBC 3.96 (3.93-5.22) M/uL Hgb 11.1 L (12.0-16.0) g/dl Hct 38.1 (34.1-44.9) % MCV 96.2 (80.0-100.0) fL MCH 28.0 (25.0-34.0) pg MCHC 29.1 L (32.0-36.0) g/dL RDW Std Deviation 63.4 H (36.4-46.3) fL RDW Coeff of Judie 18.4 H (11.5-14.5) % Plt Count 489 H (130-400) K/uL MPV 9.8 (9.4-12.3) fL Immature Gran % (Auto) 0.5 % Neut % (Auto) 91.2 % Lymph % (Auto) 5.3 % [place] % (Auto) 2.8 % Eos % (Auto) 0.0 % Baso % (Auto) 0.2 % Neut # (Auto) 24.06 H (1.4-6.5) K/uL Lymph # (Auto) 1.39 (1.2-3.4) K/uL [place] # (Auto) 0.75 (0.24-0.82) K/uL Eos # (Auto) 0.00 (0-0.50) K/uL Baso # (Auto) 0.04 (0-0.2) K/uL Immature Gran # (Auto) 0.13 H (0.00-0.02) K/uL Sodium 135 L (136-145) mmol/L Potassium 5.3 H (3.5-5.1) mmol/L Chloride 96 L (98-107) mmol/L Carbon Dioxide 26 (21-32) mmol/L Anion Gap 13 H (3-11) BUN 19 (6-23) mg/dl Creatinine 0.96 (0.6-1.2) mg/dl Est Cr Clr Drug Dosing 38.2 ml/min Est GFR ( Amer) 65.7 ml/min Est GFR (Non-Af Amer) 56.6 ml/min BUN/Creatinine Ratio 19.8 (10-20) Glucose 357 H* (70-99(Fasting)) mg/dl Lactate (0.4-2.0) mmol/L Calcium 8.4 L (8.5-10.1) mg/dl Phosphorus 6.6 H (2.5-4.9) mg/dl Magnesium 2.0 (1.7-2.4) mg/dl Total Bilirubin 0.5 (0.2-1.0) mg/dl AST 41 H (13-39) U/L ALT 29 (7-52) U/L Alkaline Phosphatase 112 H (34-104) U/L Total Creatine Kinase 55 (26-192) U/L Troponin I High Sens 378.4 H* (0-14) pg/ml Total Protein 7.0 (6.0-8.3) gm/dl Albumin 3.8 (3.4-5.0) gm/dl Globulin 3.2 (2.5-4.0) gm/dl Albumin/Globulin Ratio 1.2 (0.9-2) Urine Color Urine Appearance (Clear) Urine pH (4.5-7.5) Ur Specific [place] (1.000-1.030) Urine Protein (Negative) Urine Glucose (UA) (Negative) Urine Ketones (Negative) Urine Blood (Negative) Urine Nitrite (Negative) Urine Bilirubin (Negative) Urine Urobilinogen (Negative) Ur Leukocyte Esterase (Negative) Urine WBC (Auto) (0-5) /hpf Urine RBC (Auto) (0-4) /hpf U Hyaline Cast (Auto) (0-5) /lpf U Epithel Cells (Auto) (0-5) /lpf Urine Bacteria (Auto) (Negative) SARS-CoV-2, RNA, NAAT (NEGATIVE) 01/24/22 01/24/22 01/24/22 Range/Units 17:14 17:19 17:42 WBC (4.8-10.8) K/ul RBC (3.93-5.22) M/uL Hgb (12.0-16.0) g/dl Hct (34.1-44.9) % MCV (80.0-100.0) fL MCH (25.0-34.0) pg MCHC (32.0-36.0) g/dL RDW Std Deviation (36.4-46.3) fL RDW Coeff of Judie (11.5-14.5) % Plt Count (130-400) K/uL MPV (9.4-12.3) fL Immature Gran % (Auto) % Neut % (Auto) % Lymph % (Auto) % [place] % (Auto) % Eos % (Auto) % Baso % (Auto) % Neut # (Auto) (1.4-6.5) K/uL Lymph # (Auto) (1.2-3.4) K/uL [place] # (Auto) (0.24-0.82) K/uL Eos # (Auto) (0-0.50) K/uL Baso # (Auto) (0-0.2) K/uL Immature Gran # (Auto) (0.00-0.02) K/uL Sodium (136-145) mmol/L Potassium (3.5-5.1) mmol/L Chloride (98-107) mmol/L Carbon Dioxide (21-32) mmol/L Anion Gap (3-11) BUN (6-23) mg/dl Creatinine (0.6-1.2) mg/dl Est Cr Clr Drug Dosing ml/min Est GFR ( Amer) ml/min Est GFR (Non-Af Amer) ml/min BUN/Creatinine Ratio (10-20) Glucose (70-99(Fasting)) mg/dl Lactate 4.1 H* (0.4-2.0) mmol/L Calcium (8.5-10.1) mg/dl Phosphorus (2.5-4.9) mg/dl Magnesium (1.7-2.4) mg/dl Total Bilirubin (0.2-1.0) mg/dl AST (13-39) U/L ALT (7-52) U/L Alkaline Phosphatase (34-104) U/L Total Creatine Kinase (26-192) U/L Troponin I High Sens (0-14) pg/ml Total Protein (6.0-8.3) gm/dl Albumin (3.4-5.0) gm/dl Globulin (2.5-4.0) gm/dl Albumin/Globulin Ratio (0.9-2) Urine Color Yellow Urine Appearance Clear (Clear) Urine pH 5.0 (4.5-7.5) Ur Specific [place] 1.019 (1.000-1.030) Urine Protein 3+ H (Negative) Urine Glucose (UA) 2+ H (Negative) Urine Ketones Negative (Negative) Urine Blood 2+ H (Negative) Urine Nitrite Negative (Negative) Urine Bilirubin Negative (Negative) Urine Urobilinogen Negative (Negative) Ur Leukocyte Esterase Trace H (Negative) Urine WBC (Auto) >30 H (0-5) /hpf Urine RBC (Auto) 0-4 (0-4) /hpf U Hyaline Cast (Auto) 5-10 H (0-5) /lpf U Epithel Cells (Auto) >30 H (0-5) /lpf Urine Bacteria (Auto) Negative (Negative) SARS-CoV-2, RNA, NAAT NEGATIVE (NEGATIVE) Imaging Data Radiologist's Impression: Head CT 01/24/22 15:53 CT head/brain wo con CLINICAL HISTORY: unresponsive Technique: Contiguous axial CT images of the head were acquired from the base of the skull to the vertex without intravenous contrast administration. Images were viewed in brain, subdural and bone windows. Automated dose lowering techniques and/or adjustment according to patient size were utilized for this exam. 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 Encephalomalacia in the left posterior fossa is again seen with postsurgical changes in the associated hernia. Imaged portions of the paranasal sinuses and mastoid air cells are clear. The orbits appear normal. There are no acute fractures of the calvaria or scalp swelling. Impression: Redemonstration of posterior midline intracranial mass which appears slightly enlarged from prior exam. Postsurgical changes are seen in the posterior fossa. No evidence of acute abnormality, in particular no hemorrhage or CT evidence of infarct. ACT 112: Negative or not required by law. Electronically signed by: Diogenes Werner M.D. 01/24/2022 4:[address] 01/24/22 17:41 CT chest diagnostic wo con CLINICAL HISTORY: seizure/fall TECHNIQUE: Multidetector row helical CT of the chest was performed. Coronal and sagittal reformations were obtained. Automated dose lowering techniques and/or adjustment according to patient size were utilized for this exam. CT DOSE: 330.84 mGy.cm Comparison: Comparison is made to chest radiograph 06/07/2021 FINDINGS: Lungs and pleura: Normal. Heart and pericardium: Heart size is normal. No pericardial effusion. Vessels: Moderate atherosclerotic changes in the aorta and coronary arteries. Mediastinum and fernanda: Unremarkable. Chest wall and lower neck: Unremarkable. Abdomen: Patient is status post gastric bypass surgery. Cholecystectomy changes are seen. Bones: Degenerative changes in the thoracic spine. IMPRESSION: Airspace opacities most prominent in the left lower lobe may represent pneumonia and/or aspiration. Atelectasis is noted as well. Cardiomegaly is seen. ACT 112: Negative or not required by law. Electronically signed by: Diogenes Werner M.D. 01/24/2022 7:13 PM ECG Data Attestation: I personally reviewed and interpreted this ECG as follows: Additional Comments: Twelve-lead EKG: Per my interpretation shows a normal sinus rhythm at a rate of 64. No ST elevation. No PVCs. Normal QTC. MDM Narrative 76-year-old female presents unresponsive to the emergency department. Last seen well was possibly this morning. The tried to get her to the bathroom today around 2 PM and she had some weakness in her left side. She was unable to get back to the bed and became unresponsive shortly thereafter. The patient had a seizure at home prior to EMS arrival and had another tonic-clonic seizure for EMS. She was given IV Versed prior to arrival. She had another seizure when she went directly to CT scan here by EMS. 2 mg of Versed were given during CT. She had an additional seizure when she got back to room a 1 and was given a mil ligram of IV Ativan and 5 mg of IV Valium. IV Keppra has been ordered. Her prehospital blood sugar was 305. History of meningioma that appears to have worsened on her CT scan today. It is slightly larger. No previous history of seizures. Information obtained by the patient's sister who was present in the ED. the patient's sister says that she has a living will and would not want any heroic measures. Does not want intubation or resuscitation or surgery. The patient is reportedly feeling fine prior to her events today. No recent illness. Impression & Plan Seizure, Brain tumor, Unresponsive state, Leukocytosis Discharge Plan Visit Data Chief Complaint: Unresponsive Stated Complaint: unresponsive ED Provider: Wade Romero Discharge Problem: Seizure, Brain tumor, Unresponsive state, Leukocytosis Discharge Instructions Interventions: ED Discharge Assessment Last Done: 01/24/22 18:56
[2022-01-24] MEDS ORDERED: SODIUM CHLORIDE 0.9% 500 ML IV SCH (16:30)
[2022-01-24 16:42] LABS: Basophils # (auto) 0.04 K/uL (0-0.2); Basophils % (auto) 0.2 %; Immature Granulocytes # (auto) 0.13 K/uL (0.00-0.02); Immature Granulocytes % (auto) 0.5 %; Lymphocytes # (auto) 1.39 K/uL (1.2-3.4); Lymphocytes % (auto) 5.3 %; Monocytes # (auto) 0.75 K/uL (0.24-0.82); Monocytes % (auto) 2.8 %; Neutrophils # (auto) 24.06 K/uL (1.4-6.5); Neutrophils % (auto) 91.2 %
[2022-01-24 16:45] LABS: Albumin Globulin Ratio 1.2 (0.9-2); Albumin Level 3.8 gm/dl (3.4-5.0); BUN Creatinine Ratio 19.8 (10-20); Bilirubin,Total 0.5 mg/dl (0.2-1.0); Calcium 8.4 mg/dl (8.5-10.1); Creatinine Clr Calc Pharmacy 38.2 ml/min; Est GFR (African American) 65.7 ml/min; Est GFR (Non-African American) 56.6 ml/min; Globulin 3.2 gm/dl (2.5-4.0); Phosphorus 6.6 mg/dl (2.5-4.9); Potassium 5.3 mmol/L (3.5-5.1)
--- NOTE | 2022-01-24 17:16 | History & Physical Report ---
Date of Service January 24, 2022 Assessment & Plan (1) Seizure: Plan: Multiple Seizures Likely Secondary to progressive meningioma, tramadol could be contributing Altered mental status --likely postictal state Received IV Versed, Valium, Keppra while in ED --CT head:Redemonstration of posterior midline intracranial mass which appears slightly enlarged from prior exam. Postsurgical changes are seen in the posterior fossa. No evidence of acute abnormality, in particular no hemorrhage or CT evidence of infarct. Tramadol discontinue Seizure precautions, fall precautions Continue Keppra 500 mg IV twice daily IV Ativan as needed for seizures Neurology consulted N.p.o. for now Elevated troponins Likely secondary to seizure, hypertensive urgency Check resting echo Trend troponins Consider cardiology evaluation. Mild hyperkalemia Monitor BMP Chronic diarrhea ? Secondary to chemotherapy Stool studies if recurrent while hospitalized DM Type II: Currently not on any medications Last A1c:6.8 Started on insulin sliding scale per protocol Pharmacy Glycemic control consult Update HbA1c Leukocytosis Likely reactive secondary to seizure Abnormal urinalysis Blood, urine cultures pending Empirically started on Rocephin Hypoxia ? Aspiration from seizure CT chest pending Aspiration precautions Supplemental oxygen as needed Hypertensive urgency IV labetalol as needed Resume home antihypertensives as able Recurrent meningioma S/P surgery, chemotherapy, radiation therapy Chemotherapy discontinued recently Plan to be started on octreotide on February 02, 2022 Follows with [facility] neurology H/O Gastric bypass Dyslipidemia Anxiety disorder Resume home medications as able DVT prophylaxis SCDs for now CODE STATUS DNI DNR as per patient's daughter-POA No heroic measures or surgeries/procedures requested History of Present Illness Chief Complaint: Seizure Primary Care Provider: Pablito Salazar MD Patient is a 15-year-old female with history of meningioma S/P surgery, radiation therapy, chemotherapy, S/P gastric bypass, dyslipidemia, hypertension, diabetes, anxiety disorder, protein calorie malnutrition, CKD stage III, cystocele and other medical problems presents with history of multiple episodes of seizures. Patient is currently obtunded and unable to provide any history. Most of the history is obtained from patient's family at bedside, old records and from ER physician. Family reports that patient has been not herself since about 4 to 5 days duration. This morning patient was being helped to go to bathroom when she fell on the floor and couldn't get up. Patient was found to be unconscious in feces. Her family attributes that she had chronic diarrhea which is unchanged. No known history of urinary incontinence, tongue bite. Patient was nonverbal and was only able to nod her head to questions as per family. ? chest pain but was unsure. 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 Her family eventually were able to lift her up to the bed. Family reports no head trauma. She was noted to have generalized seizure-like activity. When EMS arrived, patient also was noted to have seizure-like activity and was given 2 mg of IV Versed. She was placed on nonrebreather. In route to the hospital she also had an episode of seizure as per records. Patient had another episode of seizure while waiting for CT head. Patient received another dose of IV Versed, Valium and Keppra. Currently she is obtunded and unable to provide any history. No known history of seizure disorder in the past. She has been using tramadol for pain as needed. Patient was recently discontinued on chemotherapy for meningioma and was planned to be started on octreotide on February 02 as per family. Patient ambulates with wheelchair at baseline and only transfers with help. Family prefers patient to be DNI DNR. Discussed with patient's daughter Ashley Sherwood at bedside. " My mom has undergone through a lot'. No heroic measures or surgery/procedures as per family. Allergies Allergy/AdvReac Type Severity Reaction Status Date / Time No Known Allergies Allergy Unverified 01/24/22 16:58 Home Medications Medication Instructions Recorded Confirmed Type acetaminophen 325 mg capsule 325 mg PO Q6 PRN Fever Or Pain 06/27/21 01/24/22 History amlodipine 5 mg tablet 5 mg PO QAM 06/27/21 01/24/22 History cyanocobalamin (vitamin B-12) 1,000 mcg IM Q30D 06/27/21 01/24/22 History 1,000 mcg/mL injection solution labetalol 100 mg tablet 100 mg PO TID 06/27/21 01/24/22 History lisinopril 40 mg tablet 40 mg PO QAM 06/27/21 01/24/22 History loperamide 2 mg capsule 2 mg PO UD PRN Loose Stool 06/27/21 01/24/22 History lorazepam 0.5 mg tablet 0.25 mg PO HS PRN Anxiety/sleep 06/27/21 01/24/22 History meclizine 12.5 mg tablet 12.5 mg PO Q8 PRN Dizziness 06/27/21 01/24/22 History multivitamin 1 tab PO DAILY 06/27/21 01/24/22 History ondansetron HCl 8 mg tablet 8 mg PO Q8H PRN Nausea 06/27/21 01/24/22 History tramadol 50 mg tablet 50 mg PO Q6 PRN Pain, Moderate 06/27/21 01/24/22 History aspirin 81 mg tablet,delayed 81 mg PO DAILY 01/24/22 01/24/22 History release sertraline 100 mg tablet 100 mg PO QAM 01/24/22 01/24/22 History Past Med/Surg History Medical History (Updated 01/24/22 @ 18:32 by Dirk Cooper MD) Brain mass HLD (hyperlipidemia) Seizure Surgical History H/O brain surgery Social History Smoking Status: Never smoker Preferred Language: Indonesian Communication Ability: Effective 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 marital status: Single Current Living Situation: Family Current Living Situation Comment: [facility] Feels Safe at Home: Yes Assistive Devices: Walker Review of Systems Review of Systems: All systems reviewed & are unremarkable except as noted in Subjective Physical Exam Physical Exam: Physical Exam: Vitals signs as noted above General Appearance: Thin, frail, chronically appearing, obtunded, on nonrebr eather Head: normocephalic, Atraumatic Eyes: normal inspection, + anisocoria R>L Neck: supple, Trachea midline Respiratory/Chest: Normal breath sounds, CTA, No accessory muscle use Cardiovascular: S1, S2, No murmur, +Tachycardia Abdomen/GI:Soft, Non tender, Bowel sounds present Extremities/Musculoskeletal:normal inspection, Trace pedal edema Neurologic/Psych: Obtunded, unable to perform complete neurological exam Skin: normal color, warm Results & Data Results & Data ([facility]) Vital Signs (Past 12 Hours) Vital Signs Pulse Resp BP Pulse Ox O2 Del Method O2 Flow Rate 01/24/22 17:00 108 H 16 167/92 H 98 Non-rebreather 15 01/24/22 16:45 102 H 16 153/89 H 98 Non-rebreather 15 01/24/22 16:34 104 H 12 155/87 H 98 Non-rebreather 15 01/24/22 16:30 106 H 19 152/89 H 94 Non-rebreather 15 01/24/22 16:12 112 H 17 112/84 98 Non-rebreather 15 01/24/22 15:56 115 H 16 112/84 98 Non-rebreather 15 Laboratory Results Short CBC 01/24/22 Range/Units 16:15 WBC 26.37 H (4.8-10.8) K/ul Hgb 11.1 L (12.0-16.0) g/dl Hct 38.1 (34.1-44.9) % Plt Count 489 H (130-400) K/uL BMP 01/24/22 16:15 Sodium 135 L Potassium 5.3 H Chloride 96 L Carbon Dioxide 26 BUN 19 Creatinine 0.96 Glucose 357 H* Calcium 8.4 L Cardiac Enzymes 01/24/22 Range/Units 16:15 Total Creatine Kinase 55 (26-192) U/L Liver Function 01/24/22 Range/Units 16:15 Total Bilirubin 0.5 (0.2-1.0) mg/dl AST 41 H (13-39) U/L ALT 29 (7-52) U/L Alkaline Phosphatase 112 H (34-104) U/L Albumin 3.8 (3.4-5.0) gm/dl Urine 01/24/22 Range/Units 17:19 Urine Color Yellow Urine Appearance Clear (Clear) Urine pH 5.0 (4.5-7.5) Ur Specific [place] 1.019 (1.000-1.030) Urine Protein 3+ H (Negative) Urine Glucose (UA) 2+ H (Negative) Diagnostic Findings CT Head:Redemonstration of posterior midline intracranial mass which appears slightly enlarged from prior exam. Postsurgical changes are seen in the posterior fossa. No evidence of acute abnormality, in particular no hemorrhage or CT evidence of infarct. ECG Additional Comments: EKG: Sinus tachycardia, nonspecific ST changes, QTC 460
[2022-01-24 17:40] LABS: Appearance Urine Clear (Clear); Bacteria Urine Automated Negative (Negative); Bilirubin Urine Negative (Negative); Blood Urine 2+ (Negative); Color Urine Yellow; Epithelial Cell Urine Auto >30 /lpf (0-5); Glucose Urine UA 2+ (Negative); Ketones Urine Negative (Negative); Leukocyte Esterase Urine Trace (Negative); Nitrite Urine Negative (Negative); Protein Urine 3+ (Negative); RBC Urine Automated 0-4 /hpf (0-4); Specific Gravity Urine 1.019 (1.000-1.030); Urobilinogen Urine Negative (Negative); WBC Urine Automated >30 /hpf (0-5)
[2022-01-24] MEDS ORDERED: SODIUM CHLORIDE 0.9% 1000ML 1,000 ML IV ONE (18:54)
--- NOTE | 2022-01-24 18:57 | Communication Note ---
Date of Service: January 24, 2022 Given elevated lactic acid, will give bolus of IV fluids, change Rocephin to Zosyn. Will trend lactate levels. CT chest pending.
[2022-01-24] MEDS ORDERED: PIPERACILLIN/TAZOBACTAM 3.375 GM in DEXTROSE 5% 100 ML IV ONE (19:15)
--- NOTE | 2022-01-24 19:16 | CT Scan Report ---
CT chest diagnostic wo con CLINICAL HISTORY: seizure/fall TECHNIQUE: Multidetector row helical CT of the chest was performed. Coronal and sagittal reformations were obtained. Automated dose lowering techniques and/or adjustment according to patient size were u tilized for this exam. CT DOSE: 330.84 mGy.cm Comparison: Comparison is made to chest radiograph 06/07/2021 FINDINGS: Lungs and pleura: Normal. Heart and pericardium: Heart size is normal. No pericardial effusion. Vessels: Moderate atherosclerotic changes in the aorta and coronary arteries. Mediastinum and fernanda: Unremarkable. Chest wall and lower neck: Unremarkable. Abdomen: Patient is status post gastric bypass surgery. Cholecystectomy changes are seen. Bones: Degenerative changes in the thoracic spine. IMPRESSION: Airspace opacities most prominent in the left lower lobe may represent pneumonia and/or aspiration. A telectasis is noted as well. Cardiomegaly is seen. ACT 112: Negative or not required by law. Electronically signed by: Diogenes Werner M.D. 01/24/2022 7:13 PM
[2022-01-24] MEDS ORDERED: GLUCAGON FOR INJ 1 MG VIAL SQ PRN (19:43)
[2022-01-24] MEDS ORDERED: DEXTROSE 50% 50 ML SYRINGE IV PRN (19:43)
[2022-01-24] MEDS ORDERED: GLUCOSE 10 TAB/TUBE PO PRN (19:43)
[2022-01-24] MEDS ORDERED: ONDANSETRON INJ 2 MG/ML 2 ML VIAL IV PRN (19:43)
[2022-01-24] MEDS ORDERED: PHARMACY GLYCEMIC MGMT CONSULT PRN (19:43)
[2022-01-24] MEDS ORDERED: LEVALBUTEROL HCL 0.63 MG/3 ML NEB NEB PRN (19:43)
[2022-01-24] MEDS ORDERED: CARBOHYDRATES FOR HYPOGLYCEMIA PO PRN (19:43)
[2022-01-24] MEDS ORDERED: GLUCOSE 40% GEL 15 GM TUBE PO PRN (19:43)
[2022-01-24] MEDS ORDERED: LORazepam 2 MG/1 ML VIAL IV PRN (19:43)
[2022-01-24] MEDS ORDERED: LABETALOL HCL IV 5 MG/ML 20ML IV PRN (19:43)
[2022-01-24] MEDS ORDERED: LORazepam 1 MG in SYRINGE 0 ML IV PRN (19:58)
[2022-01-24] MEDS ORDERED: METOPROLOL TARTRATE 1 MG/ML VIAL IV STA (20:12)
[2022-01-24] MEDS ORDERED: SODIUM BICARBONATE 8.4% INJ 50 MEQ/50 ML VIAL IV STA (20:18)
[2022-01-24] MEDS ORDERED: SODIUM BICARB 8.4% INJ 50 MEQ/50 ML SYR IV STA (20:20)
[2022-01-24 20:40] LABS: Allen Test POS (Pos); Base Excess ABG -1.4 mEq/L (-9-1.8); HCO3 ABG 27 mmol/L (19-24); Oxygen Saturation ABG 91.4 % (90-95); PCO2 ABG 60 mmHg (35-46); PO2 ABG 249 mmHg (80-95); pH ABG 7.26 (7.35-7.45)
[2022-01-24 20:49] LABS: Partial Thromboplastin Time 28.5 Seconds (21.0-31.0)
[2022-01-24 20:59] LABS: BUN Creatinine Ratio 24.3 (10-20); Calcium 8.5 mg/dl (8.5-10.1); Creatinine Clr Calc Pharmacy 49.6 ml/min; Est GFR (African American) 89.9 ml/min; Est GFR (Non-African American) 77.6 ml/min; Potassium 4.1 mmol/L (3.5-5.1)
[2022-01-24] MEDS ORDERED: INSULIN ASPART PER UNIT SC ONE (21:00)
[2022-01-24 21:10] LABS: Thyroid Stimulating Hormone 4.505 uIu/ml (0.300-4.500)
[2022-01-24 21:41] LABS: T4 Free Thyroxine 0.62 ng/dl (0.61-1.60)
[2022-01-24] MEDS: SODIUM CHLORIDE 0.9% 1000ML 1,000 ML IV SCH (21:58)
[2022-01-25] MEDS: METOPROLOL TARTRATE 1 MG/ML VIAL IV SCH ×3 (00:28→10:59)
[2022-01-25 00:36] LABS: Base Excess ABG 4.5 mEq/L (-9-1.8); HCO3 ABG 30 mmol/L (19-24); Oxygen Saturation ABG 90.6 % (90-95); PCO2 ABG 46 mmHg (35-46); PO2 ABG 129 mmHg (80-95); pH ABG 7.42 (7.35-7.45)
[2022-01-25 00:40] LABS: Allen Test POS (Pos)
[2022-01-25] MEDS: INSULIN ASPART PER UNIT SC SCH ×4 (01:50→16:43)
[2022-01-25 03:47] LABS: Adenovirus F 40/41 PCR Not Detected (NotDetected); Astrovirus PCR Not Detected (NotDetected); Campylobacter PCR Not Detected (NotDetected); Cryptosporidium PCR Not Detected (NotDetected); Cyclospora cayetanensis PCR Not Detected (NotDetected); Entamoeba histolytica PCR Not Detected (NotDetected); Enteroaggregative E.coli(EAEC) Not Detected (NotDetected); Enteropathogenic E.coli (EPEC) Not Detected (NotDetected); Enterotoxigenic E.coli (ETEC) Not Detected (NotDetected); Giardia lamblia PCR Not Detected (NotDetected); Norovirus GI/GII PCR Not Detected (NotDetected); Plesiomonas shigelloides PCR Not Detected (NotDetected); Rotavirus A PCR Not Detected (NotDetected); Salmonella PCR Not Detected (NotDetected); Sapovirus PCR Not Detected (NotDetected); Shiga-like Toxin E.coli (STEC) Not Detected (NotDetected); Shigella/Enteroinvasive E.coli Not Detected (NotDetected); Vibrio cholerae PCR Not Detected (NotDetected); Vibrio species PCR Not Detected (NotDetected); Yersinia enterocolitica PCR Not Detected (NotDetected)
[2022-01-25] MEDS: PIPERACILLIN/TAZOBACTAM 3.375 GM in DEXTROSE 5% 100 ML IV SCH ×3 (04:15→21:41)
[2022-01-25] MEDS: levETIRAcetam 500 MG in 0.9 % SODIUM CHLORIDE 100 ML IV SCH ×4 (04:16→17:59)
--- NOTE | 2022-01-25 06:21 | Electrocardiogram Report ---
Test Reason : Blood Pressure : / mmHG Vent. Rate : 117 BPM Atrial Rate : 117 BPM P-R Int : 154 ms QRS Dur : 082 ms QT Int : 330 ms P-R-T Axes : 049 015 066 degrees QTc Int : 460 ms Sinus tachycardia Nonspecific ST abnormality Abnormal ECG When compared with ECG of 24-APR-2018 15:40, ST now depressed in Lateral leads Confirmed by Donte Cruz ([id number]) on 01/25/2022 6:21:06 AM Referred By: REFERRED SELF Confirmed By:Donte Cruz
[2022-01-25] MEDS ORDERED: PERFLUTREN LIPID MICROSPHERE (DEFINITY) IV ONE (07:03)
--- NOTE | 2022-01-25 08:26 | Pharmacy Report ---
Pharmacy Glycemic Short Note 2 - Date of Service January 25, 2022 - Glycemic Short BSG Results (Last 24 hours): 01/24/22 01/24/22 01/24/22 16:15 20:17 21:19 Glucose 357 H* 274 H POC Glucose 261 H 01/25/22 01/25/22 01:40 06:11 Glucose POC Glucose 186 H 149 H OUTPATIENT ANTIDIABETIC REGIMEN: * n/a HbA1C: 5.3% ASSESSMENT: * Patient is a 76 year old female with a history of type 2 DM not on any anti- diabetic medications at home admitted with seizures. Pharmacy consulted to assist with glycemic management while admitted. * BSGs [phone]/dL since admission. Patient received 5 units of bolus insulin yesterday. Fasting BSG this AM within goal. * Pt NPO and receiving IV antibiotics. * Novolog initiated q6h while NPO using a weight based moderate stress scale. Given rapid decline in BSG since yesterday, goal BSG range loosened to 120- 160mg/dL. No basal for now. PLAN FOR INPATIENT GLYCEMIC CONTROL: * Hold outpatient oral diabetes medications * Basal insulin * n/a * Bolus insulin * NovoLog per scale ACHS or Q6hrs while NPO * Goal Range: Low 120 mg/dL - High 160 mg/dL * Correction Factor: 45 mg/dL/unit * Nutritional / Prandial insulin per carb ratio of 1 unit per 15 grams CHO consumed
[2022-01-25 08:29] LABS: Albumin Globulin Ratio 1.3 (0.9-2); Albumin Level 3.6 gm/dl (3.4-5.0); BUN Creatinine Ratio 25.3 (10-20); Basophils # (auto) 0.02 K/uL (0-0.2); Basophils % (auto) 0.1 %; Bilirubin,Total 0.4 mg/dl (0.2-1.0); Calcium 8.3 mg/dl (8.5-10.1); Creatinine Clr Calc Pharmacy 46.4 ml/min; Est GFR (African American) 83.1 ml/min; Est GFR (Non-African American) 71.7 ml/min; Globulin 2.8 gm/dl (2.5-4.0); Hematocrit (blood only) 34.8 % (34.1-44.9); Hemoglobin 10.8 g/dl (12.0-16.0); Immature Granulocytes % (auto) 0.5 %; Lymphocytes # (auto) 1.73 K/uL (1.2-3.4); Magnesium 1.9 mg/dl (1.7-2.4); Mean Corpuscular Hemoglobin 27.9 pg (25.0-34.0); Mean Corpuscular Volume 89.9 fL (80.0-100.0); Mean Platelet Volume 9.8 fL (9.4-12.3); Monocytes # (auto) 1.02 K/uL (0.24-0.82); Monocytes % (auto) 5.3 %; Neutrophils % (auto) 85.1 %; Phosphorus 3.5 mg/dl (2.5-4.9); Platelet Count 419 K/uL (130-400); Potassium 3.9 mmol/L (3.5-5.1); RDW Coefficient of Variation 18.6 % (11.5-14.5); Red Blood Count 3.87 M/uL (3.93-5.22); Total Protein 6.4 gm/dl (6.0-8.3); White Blood Count 19.17 K/ul (4.8-10.8)
[2022-01-25 08:51] LABS: Estimated Average Glucose 105 mg/dl; Hemoglobin A1C 5.3 % (4.5-5.6)
--- NOTE | 2022-01-25 09:34 | Cardiology Consultation ---
Date of Consultation January 25, 2022 Assessment & Plan (1) Unresponsive state: (2) Seizure: (3) Leukocytosis: (4) Brain tumor: (5) Troponin level elevated: Plan The patient had multiple prolonged seizure activity most likely resulting in hypoxia and elevation in her cardiac troponins. The echocardiogram reveals a mildly reduced left ventricular ejection fraction again likely due to hypoxia. There are also wall motion abnormalities in the basilar septum and anterior wall which could be explained again by prolonged seizures. If clinically indicated I would recommend repeating the echocardiogram in a few days to see if the wall motion abnormalities present EF improves. In the end, conservative management is indicated in this patient. 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 She had a prolonged seizure at home. The patient is not capable of giving a history but I can find nothing in the medical record that would suggest significant cardiac history. She is currently hemodynamically stable. Allergies Allergy/AdvReac Type Severity Reaction Status Date / Time No Known Allergies Allergy Unverified 01/24/22 16:58 Home Medications Medication Instructions Recorded Confirmed Type acetaminophen 325 mg capsule 325 mg PO Q6 PRN Fever Or Pain 06/27/21 01/24/22 History amlodipine 5 mg tablet 5 mg PO QAM 06/27/21 01/24/22 History cyanocobalamin (vitamin B-12) 1,000 mcg IM Q30D 06/27/21 01/24/22 History 1,000 mcg/mL injection solution labetalol 100 mg tablet 100 mg PO TID 06/27/21 01/24/22 History lisinopril 40 mg tablet 40 mg PO QAM 06/27/21 01/24/22 History loperamide 2 mg capsule 2 mg PO UD PRN Loose Stool 06/27/21 01/24/22 History lorazepam 0.5 mg tablet 0.25 mg PO HS PRN Anxiety/sleep 06/27/21 01/24/22 History meclizine 12.5 mg tablet 12.5 mg PO Q8 PRN Dizziness 06/27/21 01/24/22 History multivitamin 1 tab PO DAILY 06/27/21 01/24/22 History ondansetron HCl 8 mg tablet 8 mg PO Q8H PRN Nausea 06/27/21 01/24/22 History tramadol 50 mg tablet 50 mg PO Q6 PRN Pain, Moderate 06/27/21 01/24/22 History aspirin 81 mg tablet,delayed 81 mg PO DAILY 01/24/22 01/24/22 History release sertraline 100 mg tablet 100 mg PO QAM 01/24/22 01/24/22 History Patient History Medical History Brain mass HLD (hyperlipidemia) Seizure Surgical History H/O brain surgery Social History Smoking Status: Never smoker Second Hand Exposure: No; Do You Dip or Chew Tobacco: No; Tobacco Cessation Education Requested by Patient: No Hx Alcohol Use: No (unknown) Hx Substance Use: No Preferred Language: Czech Communication Ability: Effective Housing Officer Required: Yes Beliefs That Will Affect Care: None marital status: Single Current Living Situation: Family Current Living Situation Comment: [facility] Other Information That Helps Us Care for You: No Feels Safe at Home: Yes Assistive Devices: Walker Review of Systems Review of Systems: Unobtainable Physical Exam Physical Exam: General: Seems to be alert but unresponsive to questions Head: normocephalic, no masses, lesions, tenderness or abnormalities Eyes: conjunctiva are pink and non-injected, sclera clear Neck: supple, no adenopathy, no bruits, normal jugular venous pulse, no hepatojugular reflux Chest: normal shape and normal respiratory effort Lungs: clear to auscultation and percussion Cardiac Exam: - regular rate & rhythm, no murmurs gallops or rubs - normal S1, normal S2 Pulses: 2(+) throughout Abdomen: abdomen soft, non-tender, no abnormal masses and no hepatosplenomegaly Musculoskeletal: no gait disturbance, no joint inflammation, no deforming arthritis Extremities: no edema and no cyanosis Neuro: Grossly abnormal Results & Data ([place]) Vital Signs (Past 12 Hours) Vital Signs Temp Pulse Pulse Resp BP BP BP 01/25/22 07:55 36.4 C L 101 H 30 H 171/111 H 01/25/22 06:13 103 H 01/25/22 04:00 36.9 C 95 H 20 174/117 H 182/98 H 01/25/22 02:00 01/25/22 00:26 99 H 157/97 H 01/24/22 22:00 37 C 100 H 24 157/93 H 01/24/22 22:13 113 H 181/103 H 01/24/22 21:55 113 H 24 Pulse Ox O2 Del Method O2 Flow Rate FiO2 01/25/22 07:55 97 Oxymask 6 01/25/22 06:13 01/25/22 04:00 96 Oxymask 4 01/25/22 02:00 4 01/25/22 00:26 98 BiPAP 01/24/22 22:00 97 BiPAP 01/24/22 22:13 01/24/22 21:55 97 30 Laboratory Results Laboratory Results - last 24 hr 01/24/22 01/24/22 01/24/22 16:15 16:15 16:15 WBC 26.37 H RBC 3.96 Hgb 11.1 L Hct 38.1 MCV 96.2 MCH 28.0 MCHC 29.1 L RDW Std Deviation 63.4 H RDW Coeff of Judie 18.4 H Plt Count 489 H MPV 9.8 Immature Gran % (Auto) 0.5 Neut % (Auto) 91.2 Lymph % (Auto) 5.3 Grayson % (Auto) 2.8 Eos % (Auto) 0.0 Baso % (Auto) 0.2 Neut # (Auto) 24.06 H Lymph # (Auto) 1.39 Grayson # (Auto) 0.75 Eos # (Auto) 0.00 Baso # (Auto) 0.04 Immature Gran # (Auto) 0.13 H APTT 28.5 PTT Ratio 1.0 ABG pH ABG pCO2 ABG pO2 ABG HCO3 ABG O2 Saturation ABG Base Excess Kurt Test Oxygen Given Sodium 135 L Potassium 5.3 H Chloride 96 L Carbon Dioxide 26 Anion Gap 13 H BUN 19 Creatinine 0.96 Est Cr Clr Drug Dosing 38.2 Est GFR ( Amer) 65.7 Est GFR (Non-Af Amer) 56.6 BUN/Creatinine Ratio 19.8 Glucose 357 H* POC Glucose Estimat Average Glucose Hemoglobin A1c Lactate Calcium 8.4 L Phosphorus 6.6 H Magnesium 2.0 Total Bilirubin 0.5 AST 41 H ALT 29 Alkaline Phosphatase 112 H Ammonia Total Creatine Kinase 55 Troponin I High Sens Total Protein 7.0 Albumin 3.8 Globulin 3.2 Albumin/Globulin Ratio 1.2 Procalcitonin TSH Free T4 Urine Color Urine Appearance Urine pH Ur Specific [place] Urine Protein Urine Glucose (UA) Urine Ketones Urine Blood Urine Nitrite Urine Bilirubin Urine Urobilinogen Ur Leukocyte Esterase Urine WBC (Auto) Urine RBC (Auto) U Hyaline Cast (Auto) U Epithel Cells (Auto) Urine Bacteria (Auto) Stl C. cayetanensis PCR Stool Rotavirus A PCR Stl Adenov F 40/ PCR Stool Astrovirus (PCR) Stool Campylobacter PCR Stl C. diff Tox B Gene Stool Cryptosporidium PCR Stl E.coli Shiga Tox PCR Stl Enterotoxigenic E PCR Stool EPEC (PCR) Stool EAEC (PCR) Stl E. histolytica PCR Stool Giardia Lamblia PCR Stool Salmonella PCR Stool Sapovirus (PCR) Stl P. shigelloides PCR Stl Shigella/EIEC PCR St Y.enterocolitica PCR Stool Vibrio (PCR) Stl Vibrio cholerae PCR Stl Norovirus GI/GII PCR SARS-CoV-2, RNA, NAAT 01/24/22 01/24/22 01/24/22 16:15 16:16 17:14 WBC RBC Hgb Hct MCV MCH MCHC RDW Std Deviation RDW Coeff of Judie Plt Count MPV Immature Gran % (Auto) Neut % (Auto) Lymph % (Auto) [place] % (Auto) Eos % (Auto) Baso % (Auto) Neut # (Auto) Lymph # (Auto) [place] # (Auto) Eos # (Auto) Baso # (Auto) Immature Gran # (Auto) APTT PTT Ratio ABG pH ABG pCO2 ABG pO2 ABG HCO3 ABG O2 Saturation ABG Base Excess Kurt Test Oxygen Given Sodium Potassium Chloride Carbon Dioxide Anion Gap BUN Creatinine Est Cr Clr Drug Dosing Est GFR ( Amer) Est GFR (Non-Af Amer) BUN/Creatinine Ratio Glucose POC Glucose Estimat Average Glucose Hemoglobin A1c Lactate Calcium Phosphorus Magnesium Total Bilirubin AST ALT Alkaline Phosphatase Ammonia Total Creatine Kinase Troponin I High Sens 378.4 H* Total Protein Albumin Globulin Albumin/Globulin Ratio Procalcitonin TSH 4.505 H Free T4 0.62 Urine Color Urine Appearance Urine pH Ur Specific [place] Urine Protein Urine Glucose (UA) Urine Ketones Urine Blood Urine Nitrite Urine Bilirubin Urine Urobilinogen Ur Leukocyte Esterase Urine WBC (Auto) Urine RBC (Auto) U Hyaline Cast (Auto) U Epithel Cells (Auto) Urine Bacteria (Auto) Stl C. cayetanensis PCR Stool Rotavirus A PCR Stl Adenov F PCR Stool Astrovirus (PCR) Stool Campylobacter PCR Stl C. diff Tox B Gene Stool Cryptosporidium PCR Stl E.coli Shiga Tox PCR Stl Enterotoxigenic E PCR Stool EPEC (PCR) Stool EAEC (PCR) Stl E. histolytica PCR Stool Giardia Lamblia PCR Stool Salmonella PCR Stool Sapovirus (PCR) Stl P. shigelloides PCR Stl Shigella/EIEC PCR St Y.enterocolitica PCR Stool Vibrio (PCR) Stl Vibrio cholerae PCR Stl Norovirus GI/GII PCR SARS-CoV-2, RNA, NAAT NEGATIVE 01/24/22 01/24/22 01/24/22 17:19 17:42 20:17 WBC RBC Hgb Hct MCV MCH MCHC RDW Std Deviation RDW Coeff of Judie Plt Count MPV Immature Gran % (Auto) Neut % (Auto) Lymph % (Auto) [place] % (Auto) Eos % (Auto) Baso % (Auto) Neut # (Auto) Lymph # (Auto) [place] # (Auto) Eos # (Auto) Baso # (Auto) Immature Gran # (Auto) APTT PTT Ratio ABG pH 7.26 L ABG pCO2 60 H ABG pO2 249 H ABG HCO3 27 H ABG O2 Saturation 91.4 ABG Base Excess -1.4 Kurt Test POS Oxygen Given 15 L Sodium Potassium Chloride Carbon Dioxide Anion Gap BUN Creatinine Est Cr Clr Drug Dosing Est GFR ( Amer) Est GFR (Non-Af Amer) BUN/Creatinine Ratio Glucose POC Glucose Estimat Average Glucose Hemoglobin A1c Lactate 4.1 H* Calcium Phosphorus Magnesium Total Bilirubin AST ALT Alkaline Phosphatase Ammonia Total Creatine Kinase Troponin I High Sens Total Protein Albumin Globulin Albumin/Globulin Ratio Procalcitonin TSH Free T4 Urine Color Yellow Urine Appearance Clear Urine pH 5.0 Ur Specific [place] 1.019 Urine Protein 3+ H Urine Glucose (UA) 2+ H Urine Ketones Negative Urine Blood 2+ H Urine Nitrite Negative Urine Bilirubin Negative Urine Urobilinogen Negative Ur Leukocyte Esterase Trace H Urine WBC (Auto) >30 H Urine RBC (Auto) 0-4 U Hyaline Cast (Auto) 5-10 H U Epithel Cells (Auto) >30 H Urine Bacteria (Auto) Negative Stl C. cayetanensis PCR Stool Rotavirus A PCR Stl Adenov F PCR Stool Astrovirus (PCR) Stool Campylobacter PCR Stl C. diff Tox B Gene Stool Cryptosporidium PCR Stl E.coli Shiga Tox PCR Stl Enterotoxigenic E PCR Stool EPEC (PCR) Stool EAEC (PCR) Stl E. histolytica PCR Stool Giardia Lamblia PCR Stool Salmonella PCR Stool Sapovirus (PCR) Stl P. shigelloides PCR Stl Shigella/EIEC PCR St Y.enterocolitica PCR Stool Vibrio (PCR) Stl Vibrio cholerae PCR Stl Norovirus GI/GII PCR SARS-CoV-2, RNA, NAAT 01/24/22 01/24/22 01/24/22 20:17 20:17 20:17 WBC RBC Hgb Hct MCV MCH MCHC RDW Std Deviation RDW Coeff of Judie Plt Count MPV Immature Gran % (Auto) Neut % (Auto) Lymph % (Auto) [place] % (Auto) Eos % (Auto) Baso % (Auto) Neut # (Auto) Lymph # (Auto) [place] # (Auto) Eos # (Auto) Baso # (Auto) Immature Gran # (Auto) APTT PTT Ratio ABG pH ABG pCO2 ABG pO2 ABG HCO3 ABG O2 Saturation ABG Base Excess Kurt Test Oxygen Given Sodium 135 L Potassium 4.1 D Chloride 100 Carbon Dioxide 27 Anion Gap 8 BUN 18 Creatinine 0.74 Est Cr Clr Drug Dosing 49.6 Est GFR ( Amer) 89.9 Est GFR (Non-Af Amer) 77.6 BUN/Creatinine Ratio 24.3 H Glucose 274 H POC Glucose Estimat Average Glucose Hemoglobin A1c Lactate 1.1 Calcium 8.5 Phosphorus Magnesium Total Bilirubin AST ALT Alkaline Phosphatase Ammonia 49.0 Total Creatine Kinase Troponin I High Sens 829.0 H* D Total Protein Albumin Globulin Albumin/Globulin Ratio Procalcitonin TSH Free T4 Urine Color Urine Appearance Urine pH Ur Specific [place] Urine Protein Urine Glucose (UA) Urine Ketones Urine Blood Urine Nitrite Urine Bilirubin Urine Urobilinogen Ur Leukocyte Esterase Urine WBC (Auto) Urine RBC (Auto) U Hyaline Cast (Auto) U Epithel Cells (Auto) Urine Bacteria (Auto) Stl C. cayetanensis PCR Stool Rotavirus A PCR Stl Adenov F PCR Stool Astrovirus (PCR) Stool Campylobacter PCR Stl C. diff Tox B Gene Stool Cryptosporidium PCR Stl E.coli Shiga Tox PCR Stl Enterotoxigenic E PCR Stool EPEC (PCR) Stool EAEC (PCR) Stl E. histolytica PCR Stool Giardia Lamblia PCR Stool Salmonella PCR Stool Sapovirus (PCR) Stl P. shigelloides PCR Stl Shigella/EIEC PCR St Y.enterocolitica PCR Stool Vibrio (PCR) Stl Vibrio cholerae PCR Stl Norovirus GI/GII PCR SARS-CoV-2, RNA, NAAT 01/24/22 01/25/22 01/25/22 21:19 00:23 01:40 WBC RBC Hgb Hct MCV MCH MCHC RDW Std Deviation RDW Coeff of Judie Plt Count MPV Immature Gran % (Auto) Neut % (Auto) Lymph % (Auto) [place] % (Auto) Eos % (Auto) Baso % (Auto) Neut # (Auto) Lymph # (Auto) [place] # (Auto) Eos # (Auto) Baso # (Auto) Immature Gran # (Auto) APTT PTT Ratio ABG pH 7.42 ABG pCO2 46 ABG pO2 129 H ABG HCO3 30 H ABG O2 Saturation 90.6 ABG Base Excess 4.5 H Kurt Test POS Oxygen Given 30% Sodium Potassium Chloride Carbon Dioxide Anion Gap BUN Creatinine Est Cr Clr Drug Dosing Est GFR ( Amer) Est GFR (Non-Af Amer) BUN/Creatinine Ratio Glucose POC Glucose 261 H 186 H Estimat Average Glucose Hemoglobin A1c Lactate Calcium Phosphorus Magnesium Total Bilirubin AST ALT Alkaline Phosphatase Ammonia Total Creatine Kinase Troponin I High Sens Total Protein Albumin Globulin Albumin/Globulin Ratio Procalcitonin TSH Free T4 Urine Color Urine Appearance Urine pH Ur Specific [place] Urine Protein Urine Glucose (UA) Urine Ketones Urine Blood Urine Nitrite Urine Bilirubin Urine Urobilinogen Ur Leukocyte Esterase Urine WBC (Auto) Urine RBC (Auto) U Hyaline Cast (Auto) U Epithel Cells (Auto) Urine Bacteria (Auto) Stl C. cayetanensis PCR Stool Rotavirus A PCR Stl Adenov F PCR Stool Astrovirus (PCR) Stool Campylobacter PCR Stl C. diff Tox B Gene Stool Cryptosporidium PCR Stl E.coli Shiga Tox PCR Stl Enterotoxigenic E PCR Stool EPEC (PCR) Stool EAEC (PCR) Stl E. histolytica PCR Stool Giardia Lamblia PCR Stool Salmonella PCR Stool Sapovirus (PCR) Stl P. shigelloides PCR Stl Shigella/EIEC PCR St Y.enterocolitica PCR Stool Vibrio (PCR) Stl Vibrio cholerae PCR Stl Norovirus GI/GII PCR SARS-CoV-2, RNA, NAAT 01/25/22 01/25/22 01/25/22 02:10 02:10 02:12 WBC RBC Hgb Hct MCV MCH MCHC RDW Std Deviation RDW Coeff of Judie Plt Count MPV Immature Gran % (Auto) Neut % (Auto) Lymph % (Auto) [place] % (Auto) Eos % (Auto) Baso % (Auto) Neut # (Auto) Lymph # (Auto) [place] # (Auto) Eos # (Auto) Baso # (Auto) Immature Gran # (Auto) APTT PTT Ratio ABG pH ABG pCO2 ABG pO2 ABG HCO3 ABG O2 Saturation ABG Base Excess Kurt Test Oxygen Given Sodium Potassium Chloride Carbon Dioxide Anion Gap BUN Creatinine Est Cr Clr Drug Dosing Est GFR ( Amer) Est GFR (Non-Af Amer) BUN/Creatinine Ratio Glucose POC Glucose Estimat Average Glucose Hemoglobin A1c Lactate Calcium Phosphorus Magnesium Total Bilirubin AST ALT Alkaline Phosphatase Ammonia Total Creatine Kinase Troponin I High Sens 1533.0 H* D Total Protein Albumin Globulin Albumin/Globulin Ratio Procalcitonin TSH Free T4 Urine Color Urine Appearance Urine pH Ur Specific [place] Urine Protein Urine Glucose (UA) Urine Ketones Urine Blood Urine Nitrite Urine Bilirubin Urine Urobilinogen Ur Leukocyte Esterase Urine WBC (Auto) Urine RBC (Auto) U Hyaline Cast (Auto) U Epithel Cells (Auto) Urine Bacteria (Auto) Stl C. cayetanensis PCR Not Detected Stool Rotavirus A PCR Not Detected Stl Adenov F 40/41 PCR Not Detected Stool Astrovirus (PCR) Not Detected Stool Campylobacter PCR Not Detected Stl C. diff Tox B Gene Negative Cdiff Gene Stool Cryptosporidium PCR Not Detected Stl E.coli Shiga Tox PCR Not Detected Stl Enterotoxigenic E PCR Not Detected Stool EPEC (PCR) Not Detected Stool EAEC (PCR) Not Detected Stl E. histolytica PCR Not Detected Stool Giardia Lamblia PCR Not Detected Stool Salmonella PCR Not Detected Stool Sapovirus (PCR) Not Detected Stl P. shigelloides PCR Not Detected Stl Shigella/EIEC PCR Not Detected St Y.enterocolitica PCR Not Detected Stool Vibrio (PCR) Not Detected Stl Vibrio cholerae PCR Not Detected Stl Norovirus GI/GII PCR Not Detected SARS-CoV-2, RNA, NAAT 01/25/22 01/25/22 01/25/22 06:11 07:38 07:38 WBC 19.17 H RBC 3.87 L Hgb 10.8 L Hct 34.8 MCV 89.9 D MCH 27.9 MCHC 31.0 L RDW Std Deviation 60.0 H RDW Coeff of Judie 18.6 H Plt Count 419 H MPV 9.8 Immature Gran % (Auto) 0.5 Neut % (Auto) 85.1 Lymph % (Auto) 9.0 [place] % (Auto) 5.3 Eos % (Auto) 0.0 Baso % (Auto) 0.1 Neut # (Auto) 16.30 H Lymph # (Auto) 1.73 Grayson # (Auto) 1.02 H Eos # (Auto) 0.00 Baso # (Auto) 0.02 Immature Gran # (Auto) 0.10 H APTT PTT Ratio ABG pH ABG pCO2 ABG pO2 ABG HCO3 ABG O2 Saturation ABG Base Excess Kurt Test Oxygen Given Sodium 138 Potassium 3.9 Chloride 102 Carbon Dioxide 28 Anion Gap 8 BUN 20 Creatinine 0.79 Est Cr Clr Drug Dosing 46.4 Est GFR ( Amer) 83.1 Est GFR (Non-Af Amer) 71.7 BUN/Creatinine Ratio 25.3 H Glucose 171 H POC Glucose 149 H Estimat Average Glucose Hemoglobin A1c Lactate Calcium 8.3 L Phosphorus 3.5 D Magnesium 1.9 Total Bilirubin 0.4 AST 31 ALT 23 Alkaline Phosphatase 94 Ammonia Total Creatine Kinase Troponin I High Sens Total Protein 6.4 Albumin 3.6 Globulin 2.8 Albumin/Globulin Ratio 1.3 Procalcitonin TSH Free T4 Urine Color Urine Appearance Urine pH Ur Specific [place] Urine Protein Urine Glucose (UA) Urine Ketones Urine Blood Urine Nitrite Urine Bilirubin Urine Urobilinogen Ur Leukocyte Esterase Urine WBC (Auto) Urine RBC (Auto) U Hyaline Cast (Auto) U Epithel Cells (Auto) Urine Bacteria (Auto) Stl C. cayetanensis PCR Stool Rotavirus A PCR Stl Adenov F 40/41 PCR Stool Astrovirus (PCR) Stool Campylobacter PCR Stl C. diff Tox B Gene Stool Cryptosporidium PCR Stl E.coli Shiga Tox PCR Stl Enterotoxigenic E PCR Stool EPEC (PCR) Stool EAEC (PCR) Stl E. histolytica PCR Stool Giardia Lamblia PCR Stool Salmonella PCR Stool Sapovirus (PCR) Stl P. shigelloides PCR Stl Shigella/EIEC PCR St Y.enterocolitica PCR Stool Vibrio (PCR) Stl Vibrio cholerae PCR Stl Norovirus GI/GII PCR SARS-CoV-2, RNA, NAAT 01/25/22 01/25/22 07:38 07:38 WBC RBC Hgb Hct MCV MCH MCHC RDW Std Deviation RDW Coeff of Judie Plt Count MPV Immature Gran % (Auto) Neut % (Auto) Lymph % (Auto) [place] % (Auto) Eos % (Auto) Baso % (Auto) Neut # (Auto) Lymph # (Auto) [place] # (Auto) Eos # (Auto) Baso # (Auto) Immature Gran # (Auto) APTT PTT Ratio ABG pH ABG pCO2 ABG pO2 ABG HCO3 ABG O2 Saturation ABG Base Excess Kurt Test Oxygen Given Sodium Potassium Chloride Carbon Dioxide Anion Gap BUN Creatinine Est Cr Clr Drug Dosing Est GFR ( Amer) Est GFR (Non-Af Amer) BUN/Creatinine Ratio Glucose POC Glucose Estimat Average Glucose 105 Hemoglobin A1c 5.3 Lactate Calcium Phosphorus Magnesium Total Bilirubin AST ALT Alkaline Phosphatase Ammonia Total Creatine Kinase Troponin I High Sens Total Protein Albumin Globulin Albumin/Globulin Ratio Procalcitonin 0.50 TSH Free T4 Urine Color Urine Appearance Urine pH Ur Specific [place] Urine Protein Urine Glucose (UA) Urine Ketones Urine Blood Urine Nitrite Urine Bilirubin Urine Urobilinogen Ur Leukocyte Esterase Urine WBC (Auto) Urine RBC (Auto) U Hyaline Cast (Auto) U Epithel Cells (Auto) Urine Bacteria (Auto) Stl C. cayetanensis PCR Stool Rotavirus A PCR Stl Adenov F 40/41 PCR Stool Astrovirus (PCR) Stool Campylobacter PCR Stl C. diff Tox B Gene Stool Cryptosporidium PCR Stl E.coli Shiga Tox PCR Stl Enterotoxigenic E PCR Stool EPEC (PCR) Stool EAEC (PCR) Stl E. histolytica PCR Stool Giardia Lamblia PCR Stool Salmonella PCR Stool Sapovirus (PCR) Stl P. shigelloides PCR Stl Shigella/EIEC PCR St Y.enterocolitica PCR Stool Vibrio (PCR) Stl Vibrio cholerae PCR Stl Norovirus GI/GII PCR SARS-CoV-2, RNA, NAAT Medications Administered Current Inpatient Medications Dextrose (Dextrose 50% 50 Ml Syringe) 25 - 50 ml IV UD PRN; Protocol PRN Reason: Hypoglycemia Protocol Stop: 02/23/22 19:42 Glucagon (Glucagon For Inj 1 Mg Vial) 1 mg SQ UD PRN; Protocol PRN Reason: Hypoglycemia Protocol Stop: 02/23/22 19:42 Glucose (Glucose 40% Gel 15 Gm Tube) 15 - 30 gm PO UD PRN; Protocol PRN Reason: Hypoglycemia Protocol Stop: 02/23/22 19:42 Glucose (Glucose 10 Tab/Tube) 4 - 8 tab PO UD PRN; Protocol PRN Reason: Hypoglycemia Treatment Stop: 02/23/22 19:42 Piperacillin Sod/Tazobactam (Sod 3.375 gm/ Dextrose) 115 mls @ 28.75 mls/hr IV Q8H DIEGO; Protocol Stop: 02/04/22 01:59 Last Infusion: 01/25/22 08:41 Dose: Infused Sodium Chloride (Nss 1000ml) 1,000 mls @ 60 mls/hr IV .[id number] [place]IE[place] Stop: 01/26/22 02:57 Last Admin: 01/24/22 21:58 Dose: 60 mls/hr Lorazepam 1 mg/ Syringe 1 mls @ 2 mls/min IV Q2H PRN PRN Reason: SEIZURE Stop: 02/23/22 19:57 Levetiracetam 500 mg/ Sodium (Chloride) 105 mls @ 420 mls/hr IV Q12H [facility] Stop: 02/24/22 03:59 Last Infusion: 01/25/22 05:02 Dose: Infused Insulin Aspart (Insulin Aspart Per Unit) 0 units SC Q6 DIE[place] Stop: 02/24/22 01:59 Last Admin: 01/25/22 06:13 Dose: 1 units Labetalol HCl (Labetalol Hcl Iv 5 Mg/Ml 20ml) 10 mg IV Q6H PRN PRN Reason: [id number]>[id number]>100 Stop: 02/23/22 19:42 Levalbuterol HCl (Levalbuterol Hcl 0.63 Mg/3 Ml Neb) 0.63 mg NEB Q6R PRN; Protocol PRN Reason: Shortness Of Breath Or Wheezing Stop: 02/23/22 19:42 Metoprolol Tartrate (Metoprolol Tartrate 1 Mg/Ml Vial) 2.5 mg IV Q6 DIEGO Stop: 02/24/22 00:00 Last Admin: 01/25/22 06:13 Dose: 2.5 mg Miscellaneous (Carbohydrates For Hypoglycemia ) 15 - 30 gm PO UD PRN PRN Reason: Hypoglycemia Protocol Stop: 02/23/22 19:42 Miscellaneous Information (Pharmacy Glycemic Mgmt Consult) 1 each N/A UD PRN PRN Reason: Consult Stop: 02/23/22 19:42 Ondansetron HCl (Ondansetron Inj 2 Mg/Ml 2 Ml Vial) 4 mg IV Q6H PRN PRN Reason: Nausea Stop: 02/23/22 19:42
--- NOTE | 2022-01-25 10:22 | Neurology Consultation ---
Date of Consultation January 25, 2022 Assessment & Plan (1) Seizure: Plan Neurology Consultation Assessment: pt with s/p seizure like event with hx of large meningioma in posterior fossa. pt likely had seizure from UTI and electrolyte imbalance from chronic diarrhea and tramadol side effect. pt also found to have acute SD. pt currently does not appears to be having seizures. pt still likely confused from UTI and ativan and metabolic disorders. Recommendations: -i do not see the need for mri brain at this poin as it will not product management intern. pt is DNI and DNR and pt's family wants no advance/heroic measures to save pt. -continue keppra at current dose. treat UTI. correct electrolyte imbalance and hydrate. cardiac care and SD evaluation as now. no need for EEG as it will not product management intern and pt does not appears to be in status. agree stopping tramadol. call again if new question. discussed with hospitalist. celeste fan MD [facility] neurology HPI: pt this morning awake and looking around but non-verbal. moving all limbs. no seizure like movements. CT head and chart reviewed. Admission/prior HPI note: Patient is a 15-year-old female with history of meningioma S/P surgery, radiation therapy, chemotherapy, S/P gastric bypass, dyslipidemia, hypertension, diabetes, anxiety disorder, protein calorie malnutrition, CKD stage III, cystocele and other medical problems presents with history of multiple episodes of seizures. Patient is currently obtunded and unable to provide any history. Most of the history is obtained from patient's family at bedside, old records and from ER physician. Family reports that patient has been not herself since about 4 to 5 days duration. This morning patient was being helped to go to bathroom when she fell on the floor and couldn't get up. Patient was found to be unconscious in feces. Her family attributes that she had chronic diarrhea which is unchanged. No known history of urinary incontinence, tongue bite. Patient was nonverbal and was only able to nod her head to questions as per family. ? chest pain but was unsure. 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 Her family eventually were able to lift her up to the bed. Family reports no head trauma. She was noted to have generalized seizure-like activity. When EMS arrived, patient also was noted to have seizure-like activity and was given 2 mg of IV Versed. She was placed on nonrebreather. In route to the hospital she also had an episode of seizure as per records. Patient had another episode of seizure while waiting for CT head. Patient received another dose of IV Versed, Valium and Keppra. Currently she is obtunded and unable to provide any history. No known history of seizure disorder in the past. She has been using tramadol for pain as needed. Patient was recently discontinued on chemotherapy for meningioma and was planned to be started on octreotide on February 02 as per family. Patient ambulates with wheelchair at baseline and only transfers with help. ROS: per HPI Med list: see chart PMHx/SHx: see chart Neuro Exam: Mental: Alert, looking around. non-verbal. does not follow command. CN: PERRL, Full EOM, grossly symmetric face Motor: moving all limbs spontaneously and no seizure like movements. No abnormal movements. Sens: withdraws to pain b/l Coord: unable to test DTR: toes mute b/l Total time spent: 80 min. This includes time spent educating patient about medical condition and coordination of care (also including time spent on chart reviewing and documentation). History of Present Illness Attending Physician: Dirk Cooper MD Allergies Allergy/AdvReac Type Severity Reaction Status Date / Time No Known Allergies Allergy Unverified 01/24/22 16:58 Home Medications Medication Instructions Recorded Confirmed Type acetaminophen 325 mg capsule 325 mg PO Q6 PRN Fever Or Pain 06/27/21 01/24/22 History amlodipine 5 mg tablet 5 mg PO QAM 06/27/21 01/24/22 History cyanocobalamin (vitamin B-12) 1,000 mcg IM Q30D 06/27/21 01/24/22 History 1,000 mcg/mL injection solution labetalol 100 mg tablet 100 mg PO TID 06/27/21 01/24/22 History lisinopril 40 mg tablet 40 mg PO QAM 06/27/21 01/24/22 History loperamide 2 mg capsule 2 mg PO UD PRN Loose Stool 06/27/21 01/24/22 History lorazepam 0.5 mg tablet 0.25 mg PO HS PRN Anxiety/sleep 06/27/21 01/24/22 History meclizine 12.5 mg tablet 12.5 mg PO Q8 PRN Dizziness 06/27/21 01/24/22 History multivitamin 1 tab PO DAILY 06/27/21 01/24/22 History ondansetron HCl 8 mg tablet 8 mg PO Q8H PRN Nausea 06/27/21 01/24/22 History tramadol 50 mg tablet 50 mg PO Q6 PRN Pain, Moderate 06/27/21 01/24/22 History aspirin 81 mg tablet,delayed 81 mg PO DAILY 01/24/22 01/24/22 History release sertraline 100 mg tablet 100 mg PO QAM 01/24/22 01/24/22 History Patient History Medical History Brain mass HLD (hyperlipidemia) Seizure Surgical History H/O brain surgery Social History Smoking Status: Never smoker Second Hand Exposure: No; Do You Dip or Chew Tobacco: No; Tobacco Cessation Education Requested by Patient: No Hx Alcohol Use: No (unknown) Hx Substance Use: No Preferred Language: Slovak Communication Ability: Effective Iuss Acoustic Analyst Required: Yes Beliefs That Will Affect Care: None marital status: Single Current Living Situation: Family Current Living Situation Comment: [facility] Other Information That Helps Us Care for You: No Feels Safe at Home: Yes Assistive Devices: Walker Results & Data ([facility]) Vital Signs (Past 12 Hours) Vital Signs Temp Pulse Pulse Resp BP BP Pulse Ox 01/25/22 10:17 102 H 01/25/22 10:12 36.9 C 102 H 30 H 185/118 H 98 01/25/22 07:55 36.4 C L 101 H 30 H 171/111 H 97 01/25/22 06:13 103 H 01/25/22 04:00 36.9 C 95 H 20 174/117 H 182/98 H 96 01/25/22 02:00 01/25/22 00:26 99 H 157/97 H 98 O2 Del Method O2 Flow Rate 01/25/22 10:17 01/25/22 10:12 Oxymask 2 01/25/22 07:55 Oxymask 6 01/25/22 06:13 01/25/22 04:00 Oxymask 4 01/25/22 02:00 4 01/25/22 00:26 BiPAP
[2022-01-25] MEDS: SODIUM CHLORIDE 0.9% 1000ML 1,000 ML IV SCH (12:03)
[2022-01-25] MEDS: lisinopril 40 MG TAB PO SCH (15:00)
--- NOTE | 2022-01-25 15:00 | Hospitalist Progress Note ---
Date of Service January 25, 2022 Assessment & Plan (1) Seizure: Plan: Multiple Seizures Likely Secondary to progressive meningioma, tramadol could be contributing Altered mental status --likely postictal state Received IV Versed, Valium, Keppra while in ED --CT head:Redemonstration of posterior midline intracranial mass which appears slightly enlarged from prior exam. Postsurgical changes are seen in the posterior fossa. No evidence of acute abnormality, in particular no hemorrhage or CT evidence of infarct. Tramadol discontinued Seizure precautions, fall precautions Continue Keppra 500 mg IV twice daily IV Ativan as needed for seizures Appreciate Neurology Input Advance diet as tolerated Elevated Troponin Likely Type II ID due to hypoxia/seizure, hypertensive urgency --ECHO: EF 40 to 45%. Left atrium is moderately dilated. Mild to moderate aortic regurgitation, moderate to severe mitral regurgitation, moderate tricuspid regurgitation. Wall motion abnormalities of the left ventricular basal septum and anterior wall. Findings consistent with postictal state and hypoxia from prolonged seizure. --Appreciate cardiology Input -- Will likely need repeat echo in few days Mild hyperkalemia Resolved Monitor BMP Chronic diarrhea ? Secondary to chemotherapy Stool studies if recurrent while hospitalized DM Type II: Currently not on any medications Last A1c:6.8>>5.3 on insulin sliding scale per protocol Pharmacy Glycemic control consult Monitor BGs Possible Left Lower lobe pneumonia Likely due to Aspiration due to seizures Hypoxia DD:reactive leukocytosis secondary to seizure --CT Chest:Airspace opacities most prominent in the left lower lobe may represent pneumonia and/or aspiration. Atelectasis is noted as well. Cardiomegaly is seen. Procalcitonin: 0.50 Blood, urine cultures pending Continue Zosyn for now Aspiration precautions Wean off of supplemental oxygen as able Speech therapy eval completed Hypertensive urgency Resume amlodipine, Metoprolol IV labetalol as needed Resume lisinopril as able Recurrent meningioma S/P surgery, chemotherapy, radiation therapy Chemotherapy discontinued recently Plan to be started on octreotide on February 02, 2022 Follows with [facility] neurology H/O Gastric bypass Dyslipidemia Anxiety disorder Restart Zoloft DVT Px: SCDs for now CODE STATUS DNI DNR as per patient's daughter-POA No heroic measures or surgeries/procedures requested per family Admission and Anticipated Discharge Date Admission Date: January 24, 2022 Subjective Patient is seen and examined at bedside Nonverbal during my encounter Discussed with neurologist at bedside No seizure activity overnight Had speech therapy evaluation earlier today Unable to obtain any history Review of Systems Review of Systems: Other Physical Exam Physical Exam: Physical Exam: Vitals signs as noted above General Appearance: Thin, frail, chronically appearing, no distress Head: normocephalic, Atraumatic Eyes: normal inspection Neck: supple, Trachea midline Respiratory/Chest: Normal breath sounds, CTA, No accessory muscle use Cardiovascular: S1, S2, No murmur, +Tachycardia Abdomen/GI:Soft, Non tender, Bowel sounds present Extremities/Musculoskeletal:normal inspection, Trace pedal edema Neurologic/Psych: Alert, awake, nonverbal, mild left upper extremity weakness, does not follow commands Skin: normal color, warm Results & Data Results & Data ([facility]) Vital Signs (Past 12 Hours) Vital Signs Temp Pulse Pulse Resp BP BP Pulse Ox 01/25/22 14:25 36.5 C 110 H 20 114/73 96 01/25/22 11:08 01/25/22 10:17 102 H 01/25/22 10:12 36.9 C 102 H 30 H 185/118 H 98 01/25/22 07:55 36.4 C L 101 H 30 H 171/111 H 97 01/25/22 06:13 103 H 01/25/22 04:00 36.9 C 95 H 20 174/117 H 182/98 H 96 O2 Del Method O2 Flow Rate 01/25/22 14:25 Oxymask 3 01/25/22 11:08 Oxymask 4 01/25/22 10:17 01/25/22 10:12 Oxymask 2 01/25/22 07:55 Oxymask 6 01/25/22 06:13 01/25/22 04:00 Oxymask 4 Laboratory Results Short CBC 01/24/22 01/25/22 Range/Units 16:15 07:38 WBC 26.37 H 19.17 H (4.8-10.8) K/ul Hgb 11.1 L 10.8 L (12.0-16.0) g/dl Hct 38.1 34.8 (34.1-44.9) % Plt Count 489 H 419 H (130-400) K/uL BMP 01/24/22 01/24/22 01/25/22 16:15 20:17 07:38 Sodium 135 L 135 L 138 Potassium 5.3 H 4.1 D 3.9 Chloride 96 L 100 102 Carbon Dioxide 26 27 28 BUN 19 18 20 Creatinine 0.96 0.74 0.79 Glucose 357 H* 274 H 171 H Calcium 8.4 L 8.5 8.3 L Cardiac Enzymes 01/24/22 Range/Units 16:15 Total Creatine Kinase 55 (26-192) U/L Liver Function 01/24/22 01/25/22 Range/Units 16:15 07:38 Total Bilirubin 0.5 0.4 (0.2-1.0) mg/dl AST 41 H 31 (13-39) U/L ALT 29 23 (7-52) U/L Alkaline Phosphatase 112 H 94 (34-104) U/L Albumin 3.8 3.6 (3.4-5.0) gm/dl Urine 01/24/22 Range/Units 17:19 Urine Color Yellow Urine Appearance Clear (Clear) Urine pH 5.0 (4.5-7.5) Ur Specific [place] 1.019 (1.000-1.030) Urine Protein 3+ H (Negative) Urine Glucose (UA) 2+ H (Negative)
[2022-01-25] MEDS: ASPIRIN 81 MG ECTAB PO SCH (18:05)
[2022-01-25] MEDS: amLODIPine BESYLATE 5 MG TAB PO SCH (18:05)
[2022-01-26] MEDS: INSULIN ASPART PER UNIT SC SCH ×5 (00:18→21:51)
[2022-01-26] MEDS: LABETALOL HCL 100 MG TAB PO SCH ×4 (00:19→21:50)
[2022-01-26] MEDS: levETIRAcetam 500 MG in 0.9 % SODIUM CHLORIDE 100 ML IV SCH ×2 (03:45→16:52)
[2022-01-26] MEDS: PIPERACILLIN/TAZOBACTAM 3.375 GM in DEXTROSE 5% 100 ML IV SCH ×3 (04:54→21:25)
[2022-01-26 07:50] LABS: Basophils # (auto) 0.02 K/uL (0-0.2); Basophils % (auto) 0.1 %; Hematocrit (blood only) 36.1 % (34.1-44.9); Hemoglobin 11.5 g/dl (12.0-16.0); Immature Granulocytes # (auto) 0.09 K/uL (0.00-0.02); Immature Granulocytes % (auto) 0.5 %; Lymphocytes # (auto) 1.87 K/uL (1.2-3.4); Lymphocytes % (auto) 9.6 %; Mean Corpuscular Hemoglobin 27.8 pg (25.0-34.0); Mean Corpuscular Hgb Conc 31.9 g/dL (32.0-36.0); Mean Corpuscular Volume 87.4 fL (80.0-100.0); Mean Platelet Volume 10.1 fL (9.4-12.3); Monocytes # (auto) 0.92 K/uL (0.24-0.82); Monocytes % (auto) 4.7 %; Neutrophils # (auto) 16.63 K/uL (1.4-6.5); Neutrophils % (auto) 85.1 %; Platelet Count 401 K/uL (130-400); RDW Coefficient of Variation 18.9 % (11.5-14.5); RDW Standard Deviation 58.7 fL (36.4-46.3); Red Blood Count 4.13 M/uL (3.93-5.22); White Blood Count 19.53 K/ul (4.8-10.8)
[2022-01-26] MEDS: amLODIPine BESYLATE 5 MG TAB PO SCH (08:01)
[2022-01-26] MEDS: ASPIRIN 81 MG ECTAB PO SCH (08:02)
[2022-01-26] MEDS: lisinopril 40 MG TAB PO SCH (08:03)
[2022-01-26] MEDS: SERTRALINE HCL 100 MG TABLET PO SCH (08:04)
--- NOTE | 2022-01-26 10:01 | Cardiology Progress Note ---
Date of Service January 26, 2022 Assessment & Plan (1) Unresponsive state: (2) Seizure: (3) Leukocytosis: (4) Brain tumor: (5) Troponin level elevated: Plan Cardiology has nothing more to offer at this point. I think palliative care is indicated. At this point we will follow from the periphery. Admission and Anticipated Discharge Date Admission Date: January 24, 2022 Subjective Status unchanged Review of Systems Review of Systems: Unobtainable Physical Exam Physical Exam: General: Seems to be alert but unresponsive to questions Head: normocephalic, no masses, lesions, tenderness or abnormalities Eyes: conjunctiva are pink and non-injected, sclera clear Neck: supple, no adenopathy, no bruits, normal jugular venous pulse, no hepatojugular reflux Chest: normal shape and normal respiratory effort Lungs: clear to auscultation and percussion Cardiac Exam: - regular rate & rhythm, no murmurs gallops or rubs - normal S1, normal S2 Pulses: 2(+) throughout Abdomen: abdomen soft, non-tender, no abnormal masses and no hepatosplenomegaly Musculoskeletal: no gait disturbance, no joint inflammation, no deforming arthritis Extremities: no edema and no cyanosis Neuro: Grossly abnormal Results & Data ([facility]) Vital Signs (Past 12 Hours) Vital Signs Temp Pulse Resp BP Pulse Ox O2 Del Method O2 Flow Rate 01/26/22 07:59 36.4 C L 115 H 20 185/124 H 96 Oxymask 3 01/26/22 02:53 36.8 C 109 H 18 165/107 H 91 Oxymask 3 01/25/22 23:50 36.7 C 102 H 18 166/108 H 94 Oxymask 3 01/25/22 22:29 98 H 165/110 H Laboratory Results Laboratory Results - last 24 hr 01/25/22 01/25/22 01/25/22 11:48 15:44 20:31 WBC RBC Hgb Hct MCV MCH MCHC RDW Std Deviation RDW Coeff of Judie Plt Count MPV Immature Gran % (Auto) Neut % (Auto) Lymph % (Auto) [place] % (Auto) Eos % (Auto) Baso % (Auto) Neut # (Auto) Lymph # (Auto) [place] # (Auto) Eos # (Auto) Baso # (Auto) Immature Gran # (Auto) Sodium Potassium Chloride Carbon Dioxide Anion Gap BUN Creatinine Est Cr Clr Drug Dosing Est GFR ( Amer) Est GFR (Non-Af Amer) BUN/Creatinine Ratio Glucose POC Glucose 160 H 175 H 126 H Calcium Magnesium 01/26/22 01/26/22 01/26/22 07:31 07:31 07:35 WBC 19.53 H RBC 4.13 Hgb 11.5 L Hct 36.1 MCV 87.4 MCH 27.8 MCHC 31.9 L RDW Std Deviation 58.7 H RDW Coeff of Judie 18.9 H Plt Count 401 H MPV 10.1 Immature Gran % (Auto) 0.5 Neut % (Auto) 85.1 Lymph % (Auto) 9.6 [place] % (Auto) 4.7 Eos % (Auto) 0.0 Baso % (Auto) 0.1 Neut # (Auto) 16.63 H Lymph # (Auto) 1.87 [place] # (Auto) 0.92 H Eos # (Auto) 0.00 Baso # (Auto) 0.02 Immature Gran # (Auto) 0.09 H Sodium Pending Potassium Pending Chloride Pending Carbon Dioxide Pending Anion Gap Pending BUN Pending Creatinine Pending Est Cr Clr Drug Dosing Pending Est GFR ( Amer) Pending Est GFR (Non-Af Amer) Pending BUN/Creatinine Ratio Pending Glucose Pending POC Glucose 161 H Calcium Pending Magnesium Pending Medications Administered Current Inpatient Medications Amlodipine Besylate (Amlodipine Besylate 5 Mg Tab) 5 mg PO QAM [facility] Stop: 02/24/22 14:29 Last Admin: 01/26/22 08:01 Dose: 5 mg Aspirin (Aspirin 81 Mg Ectab) 81 mg PO DAILY [facility] Stop: 02/24/22 14:29 Last Admin: 01/26/22 08:02 Dose: 81 mg Dextrose (Dextrose 50% 50 Ml Syringe) 25 - 50 ml IV UD PRN; Protocol PRN Reason: Hypoglycemia Protocol Stop: 02/23/22 19:42 Glucagon (Glucagon For Inj 1 Mg Vial) 1 mg SQ UD PRN; Protocol PRN Reason: Hypoglycemia Protocol Stop: 02/23/22 19:42 Glucose (Glucose 40% Gel 15 Gm Tube) 15 - 30 gm PO UD PRN; Protocol PRN Reason: Hypoglycemia Protocol Stop: 02/23/22 19:42 Glucose (Glucose 10 Tab/Tube) 4 - 8 tab PO UD PRN; Protocol PRN Reason: Hypoglycemia Treatment Stop: 02/23/22 19:42 Piperacillin Sod/Tazobactam (Sod 3.375 gm/ Dextrose) 115 mls @ 28.75 mls/hr IV Q8H [facility]; Protocol Stop: 02/04/22 01:59 Last Infusion: 01/26/22 08:54 Dose: Infused Lorazepam 1 mg/ Syringe 1 mls @ 2 mls/min IV Q2H PRN PRN Reason: SEIZURE Stop: 02/23/22 19:57 Levetiracetam 500 mg/ Sodium (Chloride) 105 mls @ 420 mls/hr IV Q12H [facility] Stop: 02/24/22 03:59 Last Infusion: 01/26/22 04:54 Dose: Infused Insulin Aspart (Insulin Aspart Per Unit) 0 units SC ACHS [facility] Stop: 02/24/22 16:29 Last Admin: 01/26/22 09:02 Dose: 1 units Labetalol HCl (Labetalol Hcl Iv 5 Mg/Ml 20ml) 10 mg IV Q6H PRN PRN Reason: HypertensionSBP>180orDBP>100 Stop: 02/23/22 19:42 Last Admin: 01/25/22 21:41 Dose: 10 mg Labetalol HCl (Labetalol Hcl 100 Mg Tab) 100 mg PO TID [facility] Stop: 02/24/22 20:59 Last Admin: 01/26/22 08:03 Dose: 100 mg Levalbuterol HCl (Levalbuterol Hcl 0.63 Mg/3 Ml Neb) 0.63 mg NEB Q6R PRN; Protocol PRN Reason: Shortness Of Breath Or Wheezing Stop: 02/23/22 19:42 Lisinopril (Lisinopril 40 Mg Tab) 40 mg PO QAM [facility] Stop: 02/24/22 14:29 Last Admin: 01/26/22 08:03 Dose: 40 mg Miscellaneous (Carbohydrates For Hypoglycemia ) 15 - 30 gm PO UD PRN PRN Reason: Hypoglycemia Protocol Stop: 02/23/22 19:42 Miscellaneous Information (Pharmacy Glycemic Mgmt Consult) 1 each N/A UD PRN PRN Reason: Consult Stop: 02/23/22 19:42 Ondansetron HCl (Ondansetron Inj 2 Mg/Ml 2 Ml Vial) 4 mg IV Q6H PRN PRN Reason: Nausea Stop: 02/23/22 19:42 Sertraline HCl (Sertraline Hcl 100 Mg Tablet) 100 mg PO [facility] Stop: 02/25/22 08:59 Last Admin: 01/26/22 08:04 Dose: 100 mg
[2022-01-26 10:07] LABS: BUN Creatinine Ratio 29.3 (10-20); Calcium 7.9 mg/dl (8.5-10.1); Creatinine Clr Calc Pharmacy 44.7 ml/min; Est GFR (African American) 79.4 ml/min; Est GFR (Non-African American) 68.5 ml/min; Magnesium 1.9 mg/dl (1.7-2.4); Potassium 3.5 mmol/L (3.5-5.1)
--- NOTE | 2022-01-26 13:37 | Palliative Care Consultation ---
Date of Consultation January 26, 2022 Assessment & Plan (1) Palliative care encounter: Patient does not have decisional capacity. Family have already advised primary team they do not wish for any heroic or aggressive interventions. They have affirmed CODE STATUS of DNR/DNI. Family meeting will be needed to assist with disposition planning, which I will defer to care management to coordinate since they will need to attend to determine what disposition assistance family will need. At this time there are no other acute inpatient palliative needs for this patient at this time and I will await further updates with regards to a family meeting. (2) Advanced care planning/counseling discussion: * See above * I called pt daughter/POA Ashley Dobbs at [phone]/Cell Phone - Preferred; no answer, [facility] re call back (3) Prolonged seizure: with resulting hypoxia induced changes Present on Admission?: Yes (4) Weakness generalized: Present on Admission?: Yes (5) Brain tumor: progressive meningioma, Plan * Patient is not decisional and therefore the engagement of her POA/daughter is required to determine next steps for disposition planning. * I would defer arranging a family meeting to case management as they will need to be present for discussion about disposition options. Jennifer Oconnell [facility] Clinical Director, Palliative Medicine History of Present Illness Reason for Consultation: GOals of care Attending Physician: Dirk Cooper MD History of Present Illness Maya Ferreira is a 76-year-old female with an aggressive meningioma s/p unsuccessful resection followed by radiation and chemotherapy. She had a prolonged seizure at home. The multiple prolonged seizure activity most likely resulted in her hypoxia and elevated troponins. Her echo demonstrates reduced LVEF 40 to 45%, attributed to hypoxia. There are also wall motion abnormalities in the basilar septum and anterior wall, also attributed to prolonged seizures. CT head:Redemonstration of posterior midline intracranial mass which appears slightly enlarged from prior exam. Postsurgical changes are seen in the posterior fossa. No evidence of acute abnormality, in particular no hemorrhage or CT evidence of infarct. CT Chest:Airspace opacities most prominent in the left lower lobe may represent pneumonia and/or aspiration. Atelectasis is noted as well. Cardiomegaly is seen. per admitting note: "CODE STATUS DNI DNR as per patient's daughter-POA No heroic measures or surgeries/procedures requested per family" She had a fall in June 2021 with left hip fx s/p ORIF left hip cannulated screw performed by dr. Francisco Extensive PMH: hyperlipidemia, prediabetes, hypertension, gastric bypass surgery, post-gastric surgery syndrome, B12 malabsorption secondary to gastric bypass on vitamin B12 shots, chronic diarrhea, protein calorie malnutrition, chronic kidney disease stage III, cystocele and iron deficiency anemia. The patient has a history of recurrent meningioma. She is status post surgery in 2019. Surgical hx: , colonoscopy, craniotomy, gastric bypass surgery, laparoscopic gastrostomy, laparoscopic cholecystectomy, cataract surgery. Patient is seen bedside, no family present. She is awake but confused. She will open her eyes to her name and smile but her speech is largely garbl ed/unintelligible, and she cannot provide any history. Allergies Allergy/AdvReac Type Severity Reaction Status Date / Time No Known Allergies Allergy Unverified 01/24/22 16:58 Home Medications Medication Instructions Recorded Confirmed Type acetaminophen 325 mg capsule 325 mg PO Q6 PRN Fever Or Pain 06/27/21 01/24/22 History amlodipine 5 mg tablet 5 mg PO QAM 06/27/21 01/24/22 History cyanocobalamin (vitamin B-12) 1,000 mcg IM Q30D 06/27/21 01/24/22 History 1,000 mcg/mL injection solution labetalol 100 mg tablet 100 mg PO TID 06/27/21 01/24/22 History lisinopril 40 mg tablet 40 mg PO QAM 06/27/21 01/24/22 History loperamide 2 mg capsule 2 mg PO UD PRN Loose Stool 06/27/21 01/24/22 History lorazepam 0.5 mg tablet 0.25 mg PO HS PRN Anxiety/sleep 06/27/21 01/24/22 History meclizine 12.5 mg tablet 12.5 mg PO Q8 PRN Dizziness 06/27/21 01/24/22 History multivitamin 1 tab PO DAILY 06/27/21 01/24/22 History ondansetron HCl 8 mg tablet 8 mg PO Q8H PRN Nausea 06/27/21 01/24/22 History tramadol 50 mg tablet 50 mg PO Q6 PRN Pain, Moderate 06/27/21 01/24/22 History aspirin 81 mg tablet,delayed 81 mg PO DAILY 01/24/22 01/24/22 History release sertraline 100 mg tablet 100 mg PO QAM 01/24/22 01/24/22 History Patient History Medical History Brain mass HLD (hyperlipidemia) Seizure Surgical History H/O brain surgery Social History Smoking Status: Never smoker Second Hand Exposure: No; Do You Dip or Chew Tobacco: No; Tobacco Cessation Education Requested by Patient: No Hx Alcohol Use: No (unknown) Hx Substance Use: No Preferred Language: Comoran Communication Ability: Effective Stevedoring Supervisor Required: Yes Beliefs That Will Affect Care: None marital status: Single Current Living Situation: Family Current Living Situation Comment: [facility] Other Information That Helps Us Care for You: No Feels Safe at Home: Yes Assistive Devices: Walker Review of Systems Review of Systems: Unobtainable due to cognitive status Physical Exam Physical Exam: This is a frail, elderly female seen resting in bed. Bitemporal wasting is noted. Pupils are equal and round but reactivity is slower than average. Pharynx is pink, dentition is fair, mucosa moist. Neck is supple without any obvious thyromegaly or stridor. Respiratory effort normal at rest, no use of accessory muscles, breath sounds diminished throughout, few scattered rhonchi, no wheezing. S1-S2, no murmur appreciated Abdomen softly distended, bowel sounds present nontender to palpation Extremities with some generalized weakness, no gross abnormalities noted Skin is pale but warm Patient is alert to self/opens eyes when name is called, she is not aware of place or time. Patient is unable to follow commands. CAM ICU++ Results & Data ([facility]) Vital Signs (Past 12 Hours) Vital Signs Temp Pulse Resp BP Pulse Ox O2 Del Method O2 Flow Rate 01/26/22 08:00 Room Air 01/26/22 11:52 36.5 C 100 H 16 152/101 H 95 Room Air 01/26/22 07:59 36.4 C L 115 H 20 185/124 H 96 Oxymask 3 01/26/22 02:53 36.8 C 109 H 18 165/107 H 91 Oxymask 3 Laboratory Results Labs and imaging reviewed Diagnostic Findings And imaging reviewed PG Care Time/CCT Total # of Minutes Spent Total Time Spent: 55 Total Time Spent with Patient: Total time spent is greater than 50% in coordination of care (as documented) at patient's floor/unit and/or counseling patient: [place] [address] Inpt Consult Level 5 Patient Type New History Detailed Exam Detailed Medical Decision Making Moderate Complexity Diagnoses Palliative care encounter Z51.5 Advanced care planning/counseling discussion Z71.89 Prolonged seizure G40.901 Weakness generalized R53.1 Brain tumor D49.6
--- NOTE | 2022-01-26 15:34 | Hospitalist Progress Note ---
Date of Service January 26, 2022 Assessment & Plan (1) Seizure: Plan: Multiple Seizures Likely Secondary to progressive meningioma, tramadol could be contributing Altered mental status --likely postictal state Received IV Versed, Valium, Keppra while in ED --CT head:Redemonstration of posterior midline intracranial mass which appears slightly enlarged from prior exam. Postsurgical changes are seen in the posterior fossa. No evidence of acute abnormality, in particular no hemorrhage or CT evidence of infarct. Tramadol discontinued Seizure precautions, fall precautions Continue Keppra 500 mg IV twice daily IV Ativan as needed for seizures Appreciate Neurology Input Tolerating pured diet Difficulty with taking pills at baseline as per family Palliative care consulted to address goals of care Consider repeat CT tomorrow if mental status remains unchanged Elevated Troponin Likely Type II NC due to hypoxia/seizure, hypertensive urgency --ECHO: EF 40 to 45%. Left atrium is moderately dilated. Mild to moderate aortic regurgitation, moderate to severe mitral regurgitation, moderate tricuspid regurgitation. Wall motion abnormalities of the left ventricular basal septum and anterior wall. Findings consistent with postictal state and hypoxia from prolonged seizure. --Appreciate cardiology Input -- Will likely need repeat echo in few days Mild hyperkalemia Resolved Monitor BMP Chronic diarrhea ? Secondary to chemotherapy Stool studies negative for infection source DM Type II: Currently not on any medications Last A1c:6.8>>5.3 on insulin sliding scale per protocol Pharmacy Glycemic control consult Monitor BGs Possible Left Lower lobe pneumonia Likely due to Aspiration due to seizures Hypoxia DD:reactive leukocytosis secondary to seizure --CT Chest:Airspace opacities most prominent in the left lower lobe may represent pneumonia and/or aspiration. Atelectasis is noted as well. Cardiomegaly is seen. Procalcitonin: 0.50 Blood culture: Negative to date urine cultures growing gram-positive cocci Continue Zosyn for now Aspiration precautions Weaned off of supplemental oxygen Speech therapy eval completed Hypertensive urgency Continue amlodipine, Metoprolol, Lisinopril IV labetalol as needed BP better Recurrent meningioma S/P surgery, chemotherapy, radiation therapy Chemotherapy discontinued recently Plan to be started on octreotide on February 02, 2022 Follows with [facility] neurology H/O Gastric bypass Dyslipidemia Anxiety disorder Continue Zoloft DVT Px: SCDs for now CODE STATUS DNI DNR as per patient's daughter-POA No heroic measures or surgeries/procedures requested per family Admission and Anticipated Discharge Date Admission Date: January 24, 2022 Subjective Patient is seen and examined at bedside Mostly nonverbal Tries to communicate but difficult to comprehend Follows simple commands Discussed with family at bedside Also discussed with cardiology today BP better today No seizure activity overnight Poor oral intake Review of Systems Review of Systems: Other Physical Exam Physical Exam: Physical Exam: Vitals signs as noted above General Appearance: Thin, frail, chronically appearing, no distress Head: normocephalic, Atraumatic Eyes: normal inspection Neck: supple, Trachea midline Respiratory/Chest: Normal breath sounds, CTA, No accessory muscle use Cardiovascular: S1, S2, No murmur Abdomen/GI:Soft, Non tender, Bowel sounds present Extremities/Musculoskeletal:normal inspection, Trace pedal edema Neurologic/Psych: Alert, awake, mild left upper extremity weakness, tries to follow simple commands Skin: normal color, warm Results & Data Results & Data ([facility]) Vital Signs (Past 12 Hours) Vital Signs Temp Pulse Pulse Resp BP Pulse Ox O2 Del Method 01/26/22 08:00 113 H 01/26/22 14:43 98 H 142/89 H 01/26/22 13:45 101 H 150/100 H 01/26/22 08:00 Room Air 01/26/22 11:52 36.5 C 100 H 16 152/101 H 95 Room Air 01/26/22 07:59 36.4 C L 115 H 20 185/124 H 96 Oxymask O2 Flow Rate 01/26/22 08:00 01/26/22 14:43 01/26/22 13:45 01/26/22 08:00 01/26/22 11:52 01/26/22 07:59 3 Laboratory Results Short CBC 01/26/22 Range/Units 07:31 WBC 19.53 H (4.8-10.8) K/ul Hgb 11.5 L (12.0-16.0) g/dl Hct 36.1 (34.1-44.9) % Plt Count 401 H (130-400) K/uL BMP 01/26/22 07:31 Sodium 141 Potassium 3.5 Chloride 103 Carbon Dioxide 24 BUN 24 H Creatinine 0.82 Glucose 142 H Calcium 7.9 L
[2022-01-26] MEDS ORDERED: LANTUS PER UNIT CHARGE SQ ONE (21:00)
--- NOTE | 2022-01-26 21:53 | Electrocardiogram Report ---
Test Reason : Blood Pressure : / mmHG Vent. Rate : 101 BPM Atrial Rate : 101 BPM P-R Int : 142 ms QRS Dur : 074 ms QT Int : 362 ms P-R-T Axes : 039 006 057 degrees QTc Int : 469 ms Sinus tachycardia Anteroseptal infarct , age undetermined Abnormal ECG When compared with ECG of 24-JAN-2022 16:19, Anteroseptal infarct is now Present T wave inversion now evident in Anterior leads Confirmed by Baldemar Issa ([id number]) on 01/26/2022 9:53:27 PM Referred By: REFERRED SELF Confirmed By:Baldemar Issa
[2022-01-27] MEDS: levETIRAcetam 500 MG in 0.9 % SODIUM CHLORIDE 100 ML IV SCH ×2 (04:00→15:18)
[2022-01-27] MEDS: PIPERACILLIN/TAZOBACTAM 3.375 GM in DEXTROSE 5% 100 ML IV SCH ×2 (05:18→11:39)
[2022-01-27 07:19] LABS: Hematocrit (blood only) 33.4 % (34.1-44.9); Hemoglobin 10.5 g/dl (12.0-16.0); Mean Corpuscular Hemoglobin 27.8 pg (25.0-34.0); Mean Corpuscular Hgb Conc 31.4 g/dL (32.0-36.0); Mean Corpuscular Volume 88.4 fL (80.0-100.0); Mean Platelet Volume 10.4 fL (9.4-12.3); Platelet Count 329 K/uL (130-400); RDW Coefficient of Variation 19.4 % (11.5-14.5); RDW Standard Deviation 61.5 fL (36.4-46.3); Red Blood Count 3.78 M/uL (3.93-5.22); White Blood Count 16.03 K/ul (4.8-10.8)
[2022-01-27 07:42] LABS: BUN Creatinine Ratio 33.7 (10-20); Calcium 7.9 mg/dl (8.5-10.1); Creatinine Clr Calc Pharmacy 42.6 ml/min; Est GFR (Non-African American) 64.7 ml/min; Potassium 3.2 mmol/L (3.5-5.1)
[2022-01-27] MEDS ORDERED: POTASSIUM CHLORIDE 20 MEQ/15 ML UDC PO ONE (07:46)
[2022-01-27] MEDS ORDERED: SODIUM CHLORIDE 0.9% 1000ML 1,000 ML IV ONE (07:48)
[2022-01-27] MEDS: SERTRALINE HCL 100 MG TABLET PO SCH (08:18)
[2022-01-27] MEDS: lisinopril 40 MG TAB PO SCH (08:18)
[2022-01-27] MEDS: LABETALOL HCL 100 MG TAB PO SCH ×3 (08:18→22:00)
[2022-01-27] MEDS: amLODIPine BESYLATE 5 MG TAB PO SCH (08:18)
[2022-01-27] MEDS: ASPIRIN 81 MG ECTAB PO SCH (08:19)
[2022-01-27] MEDS: INSULIN ASPART PER UNIT SC SCH ×4 (09:06→22:00)
--- NOTE | 2022-01-27 09:08 | CT Scan Report ---
CT OF THE HEAD WITHOUT CONTRAST CLINICAL HISTORY: Meningioma, Altered mental status, seizure. COMPARISON STUDY: Head CT June 27, 2021 and January 24, 2022. CT DOSE: 537.48 mGy.cm TECHNIQUE: Helical axial images of the head were obtained without IV contrast. Automated exposure con trol was utilized for the study. A dose lowering technique was utilized adhering to the principles o f ALARA. FINDINGS: No acute intracranial hemorrhage is present. Ventricular system is stable. 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 This is unchanged since head CT of January 24, 2022. This has mildly increased in size since ear lier head CT of June 29, 2021. Adjacent edema within the bilateral parietal lobes is noted. A occipita l craniectomy is noted with encephalomalacia within the cerebellum. Operative bed fluid collection re janey unchanged. This is unchanged. Appearance of the brain is unchanged. 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 There are no findings to suggest acute dural sinus thrombosis or acute territorial infarct. There is no acute calvarial fracture. Mucosal thickening within the le ft maxillary sinus is incidentally noted. IMPRESSION: 1. No acute intracranial findings. 2. 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 This is unchange d since head CT of January 24, 2022 and mildly increased in size since earlier CT of June 29, 2021. A lthough nonspecific, this is consistent with the provided history of meningioma. Stable postoperative findings. ACT 112: Negative or not required by law. Electronically signed by: Trino Mcdermott M.D. 01/27/2022 9:06 AM
--- NOTE | 2022-01-27 12:58 | Pharmacy Report ---
Pharmacy Glycemic Short Note 2 - Date of Service January 27, 2022 - Glycemic Short BSG Results (Last 24 hours): 01/26/22 01/26/22 01/27/22 16:33 21:28 06:46 Glucose 145 H POC Glucose 195 H 186 H 01/27/22 01/27/22 07:22 11:29 Glucose POC Glucose 148 H 148 H OUTPATIENT ANTIDIABETIC REGIMEN: * n/a HbA1C: 5.3% ASSESSMENT: 01/27 * Fasting had trended up to 161 mg/dL yesterday AM, 10 units of lantus given HS, fasting 148 mg/dL this morning. Continue 10 units HS * Diet ordered, BSGs acceptable although trended up last evening, will continue same scale for now but consider tightening if trend continues. 01/25 * Patient is a 76 year old female with a history of type 2 DM not on any anti- diabetic medications at home admitted with seizures. Pharmacy consulted to assist with glycemic management while admitted. * BSGs [id number]/dL since admission. Patient received 5 units of bolus insulin yesterday. Fasting BSG this AM within goal. * Pt NPO and receiving IV antibiotics. * Novolog initiated q6h while NPO using a weight based moderate stress scale. Given rapid decline in BSG since yesterday, goal BSG range loosened to 120- 160mg/dL. No basal for now. PLAN FOR INPATIENT GLYCEMIC CONTROL: * Hold outpatient oral diabetes medications * Basal insulin * Lantus 10 units HS * Bolus insulin * NovoLog per scale ACHS or Q6hrs while NPO * Goal Range: Low 120 mg/dL - High 160 mg/dL * Correction Factor: 45 mg/dL/unit * Nutritional / Prandial insulin per carb ratio of 1 unit per 15 grams CHO consumed
--- NOTE | 2022-01-27 14:41 | Hospitalist Progress Note ---
Date of Service January 27, 2022 Assessment & Plan (1) Seizure: Plan: Multiple Seizures Likely Secondary to progressive meningioma, tramadol could be contributing Altered mental status --likely postictal state Received IV Versed, Valium, Keppra while in ED --CT head:Redemonstration of posterior midline intracranial mass which appears slightly enlarged from prior exam. Postsurgical changes are seen in the posterior fossa. No evidence of acute abnormality, in particular no hemorrhage or CT evidence of infarct. -- Repeat CT unchanged. Tramadol discontinued Seizure precautions, fall precautions Continue Keppra 500 mg IV twice daily IV Ativan as needed for seizures Appreciate Neurology Input Palliative care consulted to address goals of care Mental status slowly improving Advance diet as tolerated Elevated Troponin Likely Type II AK due to hypoxia/seizure, hypertensive urgency --ECHO: EF 40 to 45%. Left atrium is moderately dilated. Mild to moderate aortic regurgitation, moderate to severe mitral regurgitation, moderate tr icuspid regurgitation. Wall motion abnormalities of the left ventricular basal septum and anterior wall. Findings consistent with postictal state and hypoxia from prolonged seizure. --Appreciate cardiology Input -- Will likely need repeat echo in few days Mild hyperkalemia Resolved Monitor BMP Chronic diarrhea ? Secondary to chemotherapy Stool studies negative for infection source DM Type II: Currently not on any medications Last A1c:6.8>>5.3 on insulin sliding scale per protocol Pharmacy Glycemic control consult Monitor BGs Possible Left Lower lobe pneumonia Likely due to Aspiration due to seizures Hypoxia DD:reactive leukocytosis secondary to seizure --CT Chest:Airspace opacities most prominent in the left lower lobe may represent pneumonia and/or aspiration. Atelectasis is noted as well. Cardiomegaly is seen. Procalcitonin: 0.50 Blood culture: Negative to date urine cultures grew gram-positive cocci (5000 colonies-likely contaminant) Continue Zosyn >> transition to Unasyn Aspiration precautions Weaned off of supplemental oxygen Speech therapy eval completed Hypertensive urgency Continue amlodipine, Metoprolol, Lisinopril IV labetalol as needed BP stable Recurrent meningioma S/P surgery, chemotherapy, radiation therapy Chemotherapy discontinued recently Plan to be started on octreotide on February 02, 2022 Follows with [facility] neurology H/O Gastric bypass Dyslipidemia Anxiety disorder Continue Zoloft DVT Px: SCDs for now CODE STATUS DNI DNR as per patient's daughter-POA No heroic measures or surgeries/procedures requested per family Admission and Anticipated Discharge Date Admission Date: January 24, 2022 Subjective Patient is seen and examined at bedside Mental status better when compared to external Oriented to person and place Denies any chest pain, dyspnea, dizziness Follows simple commands Poor historian BP stable Review of Systems Review of Systems: All systems reviewed & are unremarkable except as noted in Subjective Physical Exam Physical Exam: Physical Exam: Vitals signs as noted above General Appearance: Thin, frail, chronically appearing, no distress Head: normocephalic, Atraumatic Eyes: normal inspection Neck: supple, Trachea midline Respiratory/Chest: Normal breath sounds, CTA, No accessory muscle use Cardiovascular: S1, S2, No murmur Abdomen/GI:Soft, Non tender, Bowel sounds present Extremities/Musculoskeletal:normal inspection, Trace pedal edema Neurologic/Psych: Alert, awake, mild left upper extremity weakness, tries to follow simple commands Skin: normal color, warm Results & Data Results & Data ([facility]) Vital Signs (Past 12 Hours) Vital Signs Temp Pulse Resp BP BP Pulse Ox O2 Del Method 01/27/22 11:51 36.9 C 96 H 22 153/101 H 95 Room Air 01/27/22 07:57 36.9 C 95 H 22 166/99 H 95 Room Air 01/27/22 06:00 36.8 C 94 H 18 149/96 H 93 Room Air Laboratory Results Short CBC 01/27/22 Range/Units 06:46 WBC 16.03 H (4.8-10.8) K/ul Hgb 10.5 L (12.0-16.0) g/dl Hct 33.4 L (34.1-44.9) % Plt Count 329 (130-400) K/uL BMP 01/27/22 06:46 Sodium 142 Potassium 3.2 L Chloride 106 Carbon Dioxide 27 BUN 29 H Creatinine 0.86 Glucose 145 H Calcium 7.9 L
[2022-01-27] MEDS: AMPICILLIN/SULBACTAM SOD 3,000 MG in 0.9 % SODIUM CHLORIDE 100 ML IV SCH ×2 (18:01→23:24)
[2022-01-27] MEDS ORDERED: LANTUS PER UNIT CHARGE SQ SCH (21:00)
[2022-01-27] MEDS ORDERED: LOPERAMIDE HCL 2 MG CAP PO PRN (23:29)
[2022-01-28] MEDS: levETIRAcetam 500 MG in 0.9 % SODIUM CHLORIDE 100 ML IV SCH ×2 (04:05→15:14)
[2022-01-28] MEDS: AMPICILLIN/SULBACTAM SOD 3,000 MG in 0.9 % SODIUM CHLORIDE 100 ML IV SCH ×3 (05:22→18:09)
[2022-01-28] MEDS: INSULIN ASPART PER UNIT SC SCH ×4 (07:58→21:10)
[2022-01-28 08:18] LABS: Hemoglobin 10.3 g/dl (12.0-16.0); Mean Corpuscular Hemoglobin 28.1 pg (25.0-34.0); Mean Corpuscular Hgb Conc 31.2 g/dL (32.0-36.0); Mean Corpuscular Volume 89.9 fL (80.0-100.0); Mean Platelet Volume 10.5 fL (9.4-12.3); Nucleated RBC # (auto) 0.02 K/uL (0-0); Nucleated RBC % (auto) 0.1 %; Platelet Count 273 K/uL (130-400); RDW Coefficient of Variation 19.6 % (11.5-14.5); Red Blood Count 3.67 M/uL (3.93-5.22); White Blood Count 13.89 K/ul (4.8-10.8)
[2022-01-28 08:45] LABS: BUN Creatinine Ratio 28.8 (10-20); Calcium 7.7 mg/dl (8.5-10.1); Creatinine Clr Calc Pharmacy 55.6 ml/min; Est GFR (African American) 98.1 ml/min; Est GFR (Non-African American) 84.6 ml/min; Magnesium 1.9 mg/dl (1.7-2.4); Potassium 2.8 mmol/L (3.5-5.1)
[2022-01-28] MEDS ORDERED: oxyCODONE/ACETAMINOPHEN 5mg/325mg TAB PO PRN (09:43)
[2022-01-28] MEDS: lisinopril 40 MG TAB PO SCH (10:13)
[2022-01-28] MEDS: ASPIRIN 81 MG ECTAB PO SCH (10:13)
[2022-01-28] MEDS: ADVANCED PROBIOTIC 1250 MG CAPSULE PO SCH (10:13)
[2022-01-28] MEDS: SERTRALINE HCL 100 MG TABLET PO SCH (10:13)
[2022-01-28] MEDS: LABETALOL HCL 100 MG TAB PO SCH ×3 (10:13→21:59)
[2022-01-28] MEDS: amLODIPine BESYLATE 5 MG TAB PO SCH (10:13)
[2022-01-28] MEDS: POTASSIUM CHLORIDE / WTR 10 MEQ/100 ML PLCT IV SCH ×2 (10:36→11:39)
[2022-01-28] MEDS: ACETAMINOPHEN 1,000 MG/100 ML VIAL IV PRN ×2 (10:36→19:44)
[2022-01-28] MEDS: POTASSIUM CHLORIDE 20 MEQ/15 ML UDC PO SCH ×2 (10:41→21:59)
--- NOTE | 2022-01-28 12:24 | Hospitalist Progress Note ---
Date of Service January 28, 2022 Assessment & Plan (1) Seizure: Plan: Multiple Seizures Likely Secondary to progressive meningioma, tramadol could be contributing Altered mental status --likely postictal state Received IV Versed, Valium, Keppra while in ED --CT head:Redemonstration of posterior midline intracranial mass which appears slightly enlarged from prior exam. Postsurgical changes are seen in the posterior fossa. No evidence of acute abnormality, in particular no hemorrhage or CT evidence of infarct. -- Repeat CT unchanged. Tramadol discontinued Seizure precautions, fall precautions Continue Keppra 500 mg IV twice daily IV Ativan as needed for seizures Appreciate Neurology Input Palliative care on board Mental status continues to improve Poor oral intake Elevated Troponin Likely Type II CT due to hypoxia/seizure, hypertensive urgency --ECHO: EF 40 to 45%. Left atrium is moderately dilated. Mild to moderate aortic regurgitation, moderate to severe mitral regurgitation, moderate tricuspid regurgitation. Wall motion abnormalities of the left ventricular basal septum and anterior wall. Findings consistent with postictal state and hypoxia from prolonged seizure. --Appreciate cardiology Input -- Will likely need repeat echo in few days Mild hyperkalemia Resolved Monitor BMP Chronic diarrhea ? Secondary to chemotherapy Stool studies negative for infection source Imodium as needed DM Type II: Currently not on any medications Last A1c:6.8>>5.3 on insulin sliding scale per protocol Pharmacy Glycemic control consult Monitor BGs Possible Left Lower lobe pneumonia Likely due to Aspiration due to seizures Hypoxia DD:reactive leukocytosis secondary to seizure --CT Chest:Airspace opacities most prominent in the left lower lobe may represent pneumonia and/or aspiration. Atelectasis is noted as well. Cardiomegaly is seen. Procalcitonin: 0.50 Blood culture: Negative to date urine cultures grew gram-positive cocci (5000 colonies-likely contaminant) Continue Zosyn >> transition to Unasyn Aspiration precautions Weaned off of supplemental oxygen Speech therapy eval completed Transition to p.o. antibiotics as able Hypertensive urgency Continue amlodipine, Metoprolol, Lisinopril IV labetalol as needed Amlodipine increased to 10 mg today Blood pressure much better Recurrent meningioma S/P surgery, chemotherapy, radiation therapy Chemotherapy discontinued recently Plan to be started on octreotide on February 02, 2022 Follows with [facility] neurology H/O Gastric bypass Dyslipidemia Anxiety disorder Continue Zoloft DVT Px: SCDs for now CODE STATUS DNI DNR as per patient's daughter-POA No heroic measures or surgeries/procedures requested per family Admission and Anticipated Discharge Date Admission Date: January 24, 2022 Subjective Patient is seen and examined at bedside Reports some pain at buttock Mental status continues to improve Denies any chest pain, dyspnea, dizziness Poor oral intake Blood pressure better today Review of Systems Review of Systems: All systems reviewed & are unremarkable except as noted in Subjective Physical Exam Physical Exam: Physical Exam: Vitals signs as noted above General Appearance: Thin, frail, chronically appearing, no distress Head: normocephalic, Atraumatic Eyes: normal inspection Neck: supple, Trachea midline Respiratory/Chest: Normal breath sounds, CTA, No accessory muscle use Cardiovascular: S1, S2, No murmur Abdomen/GI:Soft, Non tender, Bowel sounds present Extremities/Musculoskeletal:normal inspection, Trace pedal edema Neurologic/Psych: Alert, awake, oriented X2, grossly moves all extremities Skin: normal color, warm Results & Data Results & Data ([facility]) Vital Signs (Past 12 Hours) Vital Signs Temp Pulse Pulse Resp BP BP Pulse Ox 01/28/22 11:47 37.0 C 82 18 134/88 95 01/28/22 07:46 37.0 C 87 19 168/106 H 92 01/28/22 07:22 93 H 01/28/22 02:56 36.6 C 90 16 154/92 H 93 O2 Del Method 01/28/22 11:47 Room Air 01/28/22 07:46 Room Air 01/28/22 07:22 01/28/22 02:56 Room Air Laboratory Results Short CBC 01/28/22 Range/Units 07:45 WBC 13.89 H (4.8-10.8) K/ul Hgb 10.3 L (12.0-16.0) g/dl Hct 33.0 L (34.1-44.9) % Plt Count 273 (130-400) K/uL BMP 01/28/22 07:45 Sodium 141 Potassium 2.8 L Chloride 108 H Carbon Dioxide 25 BUN 19 Creatinine 0.66 Glucose 96 Calcium 7.7 L
--- NOTE | 2022-01-28 12:26 | Palliative Care Progress Note ---
Date of Service January 28, 2022 Assessment & Plan (1) Palliative care encounter: Plan Patient is not decisional. Her family has not responded to my attempt or those of care mgt (who has tried multiple times.) Patient's family on admission expressed wish for no aggressive care/no es calation. She would be hospice appropriate if they desire home discharge with addition of hospice nursing services, which care mgt can coordinate. There are no acute IP Palliative Medicine needs at this time, so we will sign off and remain available for re engagement if needed, please call or page me. Pt not seen/no charge submitted. Jennifer Oconnell DNP Clinical Director, Palliative Medicine Admission and Anticipated Discharge Date Admission Date: January 24, 2022 Results & Data ([facility]) Vital Signs (Past 12 Hours) Vital Signs Temp Pulse Pulse Resp BP BP Pulse Ox 01/28/22 11:47 37.0 C 82 18 134/88 95 01/28/22 07:46 37.0 C 87 19 168/106 H 92 01/28/22 07:22 93 H 01/28/22 02:56 36.6 C 90 16 154/92 H 93 O2 Del Method 01/28/22 11:47 Room Air 01/28/22 07:46 Room Air 01/28/22 07:22 01/28/22 02:56 Room Air PG Care Time/CCT Total # of Minutes Spent Total Time Spent with Patient: Total time spent is greater than 50% in coordination of care (as documented) at patient's floor/unit and/or counseling patient: Coding Level of Care Code None Diagnoses Palliative care encounter Z51.5
[2022-01-28 15:15] LABS: BUN Creatinine Ratio 26.6 (10-20); Calcium 7.9 mg/dl (8.5-10.1); Creatinine Clr Calc Pharmacy 57.3 ml/min; Est GFR (African American) 99.1 ml/min; Est GFR (Non-African American) 85.5 ml/min; Potassium 3.5 mmol/L (3.5-5.1)
--- NOTE | 2022-01-28 23:20 | Electrocardiogram Report ---
Test Reason : Blood Pressure : / mmHG Vent. Rate : 099 BPM Atrial Rate : 099 BPM P-R Int : 102 ms QRS Dur : 082 ms QT Int : 384 ms P-R-T Axes : 005 016 076 degrees QTc Int : 492 ms Sinus rhythm with short UT with occasional Premature atrial complexes Anterior infarct (cited on or before 25-JAN-2022) Abnormal ECG When compared with ECG of 25-JAN-2022 05:46, Premature atrial complexes are now Present Confirmed by Baldemar Issa ([id number]) on 01/28/2022 11:20:02 PM Referred By: REFERRED SELF Confirmed By:Baldemar Issa
[2022-01-29] MEDS: AMPICILLIN/SULBACTAM SOD 3,000 MG in 0.9 % SODIUM CHLORIDE 100 ML IV SCH ×4 (00:30→17:02)
[2022-01-29] MEDS: levETIRAcetam 500 MG in 0.9 % SODIUM CHLORIDE 100 ML IV SCH (04:35)
[2022-01-29 05:55] LABS: Hematocrit (blood only) 32.5 % (34.1-44.9); Hemoglobin 10.3 g/dl (12.0-16.0); Mean Corpuscular Hemoglobin 28.4 pg (25.0-34.0); Mean Corpuscular Hgb Conc 31.7 g/dL (32.0-36.0); Mean Corpuscular Volume 89.5 fL (80.0-100.0); Mean Platelet Volume 10.9 fL (9.4-12.3); Nucleated RBC # (auto) 0.03 K/uL (0-0); Nucleated RBC % (auto) 0.2 %; Platelet Count 246 K/uL (130-400); RDW Coefficient of Variation 20.3 % (11.5-14.5); RDW Standard Deviation 62.4 fL (36.4-46.3); Red Blood Count 3.63 M/uL (3.93-5.22); White Blood Count 13.58 K/ul (4.8-10.8)
[2022-01-29 06:31] LABS: BUN Creatinine Ratio 22.7 (10-20); Calcium 7.7 mg/dl (8.5-10.1); Creatinine Clr Calc Pharmacy 55.6 ml/min; Est GFR (African American) 98.1 ml/min; Est GFR (Non-African American) 84.6 ml/min; Magnesium 1.8 mg/dl (1.7-2.4); Potassium 3.5 mmol/L (3.5-5.1)
[2022-01-29] MEDS: INSULIN ASPART PER UNIT SC SCH ×4 (08:13→20:36)
[2022-01-29] MEDS: amLODIPine BESYLATE 5 MG TAB PO SCH (08:51)
[2022-01-29] MEDS: ASPIRIN 81 MG ECTAB PO SCH (08:51)
[2022-01-29] MEDS: LABETALOL HCL 100 MG TAB PO SCH ×3 (08:51→21:04)
[2022-01-29] MEDS: ADVANCED PROBIOTIC 1250 MG CAPSULE PO SCH (08:51)
[2022-01-29] MEDS: lisinopril 40 MG TAB PO SCH (08:51)
[2022-01-29] MEDS: SERTRALINE HCL 100 MG TABLET PO SCH (08:51)
[2022-01-29] MEDS: POTASSIUM CHLORIDE 20 MEQ/15 ML UDC PO SCH ×2 (08:52→21:04)
[2022-01-29] MEDS: ACETAMINOPHEN 1,000 MG/100 ML VIAL IV PRN (08:57)
--- NOTE | 2022-01-29 10:16 | Pharmacy Report ---
Pharmacy Glycemic Sign Off Nt - Date of Service January 29, 2022 - Assessment & Plan ASSESSMENT: * Pharmacy was consulted by Dr Cooper on 01/25 for glycemic control and to write orders per [facility] inpatient glycemic control protocol. * Major changes made by pharmacy to antidiabetic regimen include: * Addition of novolog; two days of basal which has since been discontinued * Patient has been receiving/requiring 0-15 units of insulin per day for adequate glycemic control * BSGs ranging 96- 121 mg/dl * Regimen has only required minor adjustments over the past 48hrs to achieve this level of control * Do not anticipate further changes in patient status that would quickly dete riorate glycemic control (i.e. patient to be NPO for upcoming procedure, steroids tapering, starting tube feedings, etc). * Patient is not diabetic at baseline, A1c 5.3%, do not anticipate outpatient needs PLAN FOR INPATIENT GLYCEMIC CONTROL: No changes needed to current regimen. * Continue NovoLog per scale ACHS/Q6hrs while NPO * Goal range = 120 160 mg/dl * CF = 45 mg/dl/unit * CR = 1 unit for ever 15 g CHO consumed * Pharmacy is signing off of glycemic consult and will no longer be making adjustments to inpatient regimen. Please feel free to re-consult if needed. Thank you.
[2022-01-29] MEDS: LOPERAMIDE HCL 2 MG CAP PO PRN (12:04)
--- NOTE | 2022-01-29 15:21 | Hospitalist Progress Note ---
Date of Service January 29, 2022 Assessment & Plan (1) Seizure: Plan: Multiple Seizures Likely Secondary to progressive meningioma, tramadol could be contributing Altered mental status --likely postictal state Received IV Versed, Valium, Keppra while in ED --CT head:Redemonstration of posterior midline intracranial mass which appears slightly enlarged from prior exam. Postsurgical changes are seen in the posterior fossa. No evidence of acute abnormality, in particular no hemorrhage or CT evidence of infarct. -- Repeat CT unchanged. Tramadol discontinued Seizure precautions, fall precautions IV Ativan as needed for seizures Appreciate Neurology Input Palliative care consulted to address goals of care Mental status slowly improving Advance diet as tolerated Transition to p.o. Keppra 500 mg twice daily Elevated Troponin Likely Type II [place] due to hypoxia/seizure, hypertensive urgency --ECHO: EF 40 to 45%. Left atrium is moderately dilated. Mild to moderate aortic regurgitation, moderate to severe mitral regurgitation, moderate tricuspid regurgitation. Wall motion abnormalities of the left ventricular basal septum and anterior wall. Findings consistent with postictal state and hypoxia from prolonged seizure. --Appreciate cardiology Input -- Will likely need repeat echo in few days Mild hyperkalemia Resolved Monitor BMP Chronic diarrhea ? Secondary to chemotherapy Stool studies negative for infection source DM Type II: Currently not on any medications Last A1c:6.8>>5.3 on insulin sliding scale per protocol Pharmacy Glycemic control consult Monitor BGs Possible Left Lower lobe pneumonia Likely due to Aspiration due to seizures Hypoxia DD:reactive leukocytosis secondary to seizure --CT Chest:Airspace opacities most prominent in the left lower lobe may represent pneumonia and/or aspiration. Atelectasis is noted as well. Cardiomegaly is seen. Procalcitonin: 0.50 Blood culture: Negative to date urine cultures grew gram-positive cocci (5000 colonies-likely contaminant) Continue Zosyn >> transition to Unasyn Aspiration precautions Weaned off of supplemental oxygen Speech therapy eval completed Will consider to discontinue antibiotics after 7-day course Hypertensive urgency Continue amlodipine, Metoprolol, Lisinopril IV labetalol as needed Monitor Recurrent meningioma S/P surgery, chemotherapy, radiation therapy Chemotherapy discontinued recently Plan to be started on octreotide on February 02, 2022 Follows with [facility] neurology No plan for further treatments for meningioma as per family H/O Gastric bypass Dyslipidemia Anxiety disorder Continue Zoloft DVT Px: SCDs for now CODE STATUS DNI DNR as per patient's daughter-POA No heroic measures or surgeries/procedures requested per family Admission and Anticipated Discharge Date Admission Date: January 24, 2022 Subjective Patient is seen and examined at bedside Drowsy during my encounter but easily awakes Poor historian Discussed with patient's family at bedside Poor oral intake chronically as per family Still has ongoing diarrhea Denies any chest pain, dyspnea, dizziness Review of Systems Review of Systems: All systems reviewed & are unremarkable except as noted in Subjective Physical Exam Physical Exam: Physical Exam: Vitals signs as noted above General Appearance: Thin, frail, chronically appearing, no distress Head: normocephalic, Atraumatic Eyes: normal inspection Neck: supple, Trachea midline Respiratory/Chest: Normal breath sounds, CTA, No accessory muscle use Cardiovascular: S1, S2, No murmur Abdomen/GI:Soft, Non tender, Bowel sounds present Extremities/Musculoskeletal:normal inspection, Trace pedal edema Neurologic/Psych: Alert, awake, oriented X2, grossly moves all extremities Skin: normal color, warm Results & Data Results & Data ([facility]) Vital Signs (Past 12 Hours) Vital Signs Temp Pulse Pulse Resp BP BP Pulse Ox 01/29/22 15:13 79 01/29/22 14:36 36.7 C 79 18 151/94 H 94 01/29/22 10:41 36.7 C 74 18 145/85 H 94 01/29/22 07:52 79 01/29/22 07:52 01/29/22 07:15 36.6 C 79 22 165/101 H 167/106 H 94 O2 Del Method 01/29/22 15:13 01/29/22 14:36 Room Air 01/29/22 10:41 Room Air 01/29/22 07:52 01/29/22 07:52 Room Air 01/29/22 07:15 Room Air Laboratory Results Short CBC 01/29/22 Range/Units 05:39 WBC 13.58 H (4.8-10.8) K/ul Hgb 10.3 L (12.0-16.0) g/dl Hct 32.5 L (34.1-44.9) % Plt Count 246 (130-400) K/uL BMP 01/29/22 05:39 Sodium 141 Potassium 3.5 Chloride 109 H Carbon Dioxide 24 BUN 15 Creatinine 0.66 Glucose 105 H Calcium 7.7 L
[2022-01-29] MEDS: levETIRAcetam 500 MG TAB PO SCH (21:04)
[2022-01-30] MEDS: AMPICILLIN/SULBACTAM SOD 3,000 MG in 0.9 % SODIUM CHLORIDE 100 ML IV SCH ×4 (00:15→18:32)
[2022-01-30] MEDS: ACETAMINOPHEN 1,000 MG/100 ML VIAL IV PRN ×2 (06:42→16:22)
[2022-01-30 06:52] LABS: Hematocrit (blood only) 34.6 % (34.1-44.9); Hemoglobin 10.9 g/dl (12.0-16.0); Mean Corpuscular Hemoglobin 28.6 pg (25.0-34.0); Mean Corpuscular Hgb Conc 31.5 g/dL (32.0-36.0); Mean Corpuscular Volume 90.8 fL (80.0-100.0); Nucleated RBC # (auto) 0.03 K/uL (0-0); Nucleated RBC % (auto) 0.2 %; Platelet Count 223 K/uL (130-400); RDW Coefficient of Variation 21.2 % (11.5-14.5); RDW Standard Deviation 64.3 fL (36.4-46.3); Red Blood Count 3.81 M/uL (3.93-5.22); White Blood Count 14.67 K/ul (4.8-10.8)
[2022-01-30 07:33] LABS: BUN Creatinine Ratio 20.3 (10-20); Calcium 7.9 mg/dl (8.5-10.1); Creatinine Clr Calc Pharmacy 53.1 ml/min; Est GFR (African American) 96.6 ml/min; Est GFR (Non-African American) 83.4 ml/min; Magnesium 1.8 mg/dl (1.7-2.4); Potassium 4.2 mmol/L (3.5-5.1)
[2022-01-30] MEDS: INSULIN ASPART PER UNIT SC SCH ×4 (08:31→20:25)
[2022-01-30] MEDS: LABETALOL HCL 100 MG TAB PO SCH ×3 (08:32→20:45)
[2022-01-30] MEDS: levETIRAcetam 500 MG TAB PO SCH ×2 (08:32→20:47)
[2022-01-30] MEDS: SERTRALINE HCL 100 MG TABLET PO SCH (08:32)
[2022-01-30] MEDS: amLODIPine BESYLATE 5 MG TAB PO SCH (08:32)
[2022-01-30] MEDS: lisinopril 40 MG TAB PO SCH (08:33)
[2022-01-30] MEDS: POTASSIUM CHLORIDE 20 MEQ/15 ML UDC PO SCH ×2 (08:33→20:48)
[2022-01-30] MEDS: ASPIRIN 81 MG ECTAB PO SCH (08:33)
[2022-01-30] MEDS: ADVANCED PROBIOTIC 1250 MG CAPSULE PO SCH (08:33)
--- NOTE | 2022-01-30 12:25 | Hospitalist Progress Note ---
Date of Service January 30, 2022 Assessment & Plan (1) Seizure: Plan: Multiple Seizures Likely Secondary to progressive meningioma, tramadol could be contributing Altered mental status --likely postictal state Received IV Versed, Valium, Keppra while in ED --CT head:Redemonstration of posterior midline intracranial mass which appears slightly enlarged from prior exam. Postsurgical changes are seen in the posterior fossa. No evidence of acute abnormality, in particular no hemorrhage or CT evidence of infarct. -- Repeat CT unchanged. Tramadol discontinued Seizure precautions, fall precautions IV Ativan as needed for seizures Appreciate Neurology Input Palliative care consulted to address goals of care Mental status appears to be improving Advance diet as tolerated Transition to p.o. Keppra 500 mg twice daily Elevated Troponin Likely Type II DC due to hypoxia/seizure, hypertensive urgency --ECHO: EF 40 to 45%. Left atrium is moderately dilated. Mild to moderate aortic regurgitation, moderate to severe mitral regurgitation, moderate tricuspid regurgitation. Wall motion abnormalities of the left ventricular basal septum and anterior wall. Findings consistent with postictal state and hypoxia from prolonged seizure. Cardiology input noted Mild hyperkalemia Resolved Continue po potassium. May need to continue this on discharge Monitor BMP Chronic diarrhea ? Secondary to chemotherapy Stool studies negative for infection source DM Type II: Currently not on any medications Last A1c:6.8>>5.3 on insulin sliding scale per protocol Pharmacy Glycemic team on board Monitor BGs Left Lower lobe pneumonia Likely due to Aspiration due to seizures Hypoxia --CT Chest:Airspace opacities most prominent in the left lower lobe may represent pneumonia and/or aspiration. Atelectasis is noted as well. Cardiomegaly is seen. Procalcitonin: 0.50 Blood culture: Negative to date urine cultures grew gram-positive cocci (5000 colonies-likely contaminant) Aspiration precautions Weaned off of supplemental oxygen Speech therapy eval completed Currently on antibiotics. Will complete 7 day treatment at the end of today Hypertensive urgency Continue amlodipine, Metoprolol, Lisinopril Monitor Recurrent meningioma S/P surgery, chemotherapy, radiation therapy Chemotherapy discontinued recently Follows with [facility] neurology No plan for further treatments for meningioma as per family H/O Gastric bypass Dyslipidemia Anxiety disorder Continue Zoloft DVT Px: SCDs for now CODE STATUS DNI DNR as per patient's daughter-POA No heroic measures or surgeries/procedures requested per family Ongoing GOC with family and providers Admission and Anticipated Discharge Date Admission Date: January 24, 2022 Subjective Patient seen and examined Patient is awake, alert and oriented to person, knows she is in the hospital but does not remember the name, oriented to month but not day or year. She is a poor historian Reports no diarrhea yet today Denied any chest pain, cough, shortness of breath Denied nausea, abd pain Denied chills, fever Physical Exam Constitutional: + well hydrated; no acute distress Elderly woman Eyes: PERRL, conjunctivae normal, anicteric sclerae ENMT: external ear and nose normal, oropharynx normal Respiratory: normal respiratory effort, lungs clear to auscultation Cardiovascular: Rate/Rhythm: regular rate and regular rhythm S1 S2 Gastrointestinal (Abdomen): normal bowel sounds, soft, nontender, no hepatosplenomegaly Musculoskeletal: No pedal edema Neurologic: PERRL, EOMI, accommodation nl, no face palsy, no dysarthria Alert and oriented to person, knows she is in the hospital but does not remember the name, oriented to month but not day or year. Results & Data Results & Data ([facility]) Vital Signs (Past 12 Hours) Vital Signs Temp Pulse Pulse Resp BP Pulse Ox O2 Del Method 01/30/22 10:47 Room Air 01/30/22 10:46 80 01/30/22 07:01 36.8 C 78 18 155/93 H 94 Room Air 01/30/22 03:28 36.6 C 73 20 155/89 H 93 Room Air Laboratory Results Abnormal lab results 01/29/22 01/29/22 01/30/22 Range/Units 16:08 20:28 06:37 WBC 14.67 H (4.8-10.8) K/ul RBC 3.81 L (3.93-5.22) M/uL Hgb 10.9 L (12.0-16.0) g/dl MCHC 31.5 L (32.0-36.0) g/dL RDW Std Deviation 64.3 H (36.4-46.3) fL RDW Coeff of Judie 21.2 H (11.5-14.5) % Absolute Nucleated RBC 0.03 H (0-0) K/uL Chloride (98-107) mmol/L BUN/Creatinine Ratio (10-20) Glucose (70-99(Fasting)) mg/dl POC Glucose 101 H 127 H (70-99) mg/dl Calcium (8.5-10.1) mg/dl 01/30/22 01/30/22 01/30/22 Range/Units 06:37 07:14 11:19 WBC (4.8-10.8) K/ul RBC (3.93-5.22) M/uL Hgb (12.0-16.0) g/dl MCHC (32.0-36.0) g/dL RDW Std Deviation (36.4-46.3) fL RDW Coeff of Judie (11.5-14.5) % Absolute Nucleated RBC (0-0) K/uL Chloride 108 H (98-107) mmol/L BUN/Creatinine Ratio 20.3 H (10-20) Glucose 118 H (70-99(Fasting)) mg/dl POC Glucose 118 H 121 H (70-99) mg/dl Calcium 7.9 L (8.5-10.1) mg/dl
[2022-01-30] MEDS: LOPERAMIDE HCL 2 MG CAP PO PRN (22:48)
[2022-01-31] MEDS: ACETAMINOPHEN 1,000 MG/100 ML VIAL IV PRN (00:15)
[2022-01-31] MEDS: AMPICILLIN/SULBACTAM SOD 3,000 MG in 0.9 % SODIUM CHLORIDE 100 ML IV SCH ×2 (00:35→06:32)
[2022-01-31] MEDS ORDERED: KETOROLAC TROMETHAMINE 15 MG/ML VIAL IV ONE (03:31)
[2022-01-31] MEDS: ADVANCED PROBIOTIC 1250 MG CAPSULE PO SCH (07:47)
[2022-01-31] MEDS: ASPIRIN 81 MG ECTAB PO SCH (07:47)
[2022-01-31] MEDS: levETIRAcetam 500 MG TAB PO SCH ×2 (07:47→20:27)
[2022-01-31] MEDS: POTASSIUM CHLORIDE 20 MEQ/15 ML UDC PO SCH ×2 (07:47→20:27)
[2022-01-31] MEDS: lisinopril 40 MG TAB PO SCH (07:48)
[2022-01-31] MEDS: SERTRALINE HCL 100 MG TABLET PO SCH (07:48)
[2022-01-31] MEDS: amLODIPine BESYLATE 5 MG TAB PO SCH (07:48)
[2022-01-31] MEDS: LABETALOL HCL 100 MG TAB PO SCH ×3 (07:48→20:27)
[2022-01-31] MEDS: INSULIN ASPART PER UNIT SC SCH ×4 (08:04→20:40)
--- NOTE | 2022-01-31 10:29 | Hospitalist Progress Note ---
Date of Service January 31, 2022 Assessment & Plan (1) Seizure: Plan: Multiple Seizures Likely Secondary to progressive meningioma, tramadol could be contributing Altered mental status --likely postictal state Received IV Versed, Valium, Keppra while in ED --CT head:Redemonstration of posterior midline intracranial mass which appears slightly enlarged from prior exam. Postsurgical changes are seen in the posterior fossa. No evidence of acute abnormality, in particular no hemorrhage or CT evidence of infarct. -- Repeat CT unchanged. Tramadol discontinued Seizure precautions, fall precautions IV Ativan as needed for seizures Appreciate Neurology Input Palliative care consulted to address goals of care Mental status appears to be improving Advance diet as tolerated Transition to p.o. Keppra 500 mg twice daily Elevated Troponin Likely Type II [place] due to hypoxia/seizure, hypertensive urgency --ECHO: EF 40 to 45%. Left atrium is moderately dilated. Mild to moderate aortic regurgitation, moderate to severe mitral regurgitation, moderate tricuspid regurgitation. Wall motion abnormalities of the left ventricular basal septum and anterior wall. Findings consistent with postictal state and hypoxia from prolonged seizure. Cardiology input noted Mild hyperkalemia Resolved Continue po potassium. May need to continue this on discharge Monitor BMP Chronic diarrhea ? Secondary to chemotherapy Stool studies negative for infection source DM Type II: Currently not on any medications Last A1c:6.8>>5.3 on insulin sliding scale per protocol Pharmacy Glycemic team on board Monitor BGs Left Lower lobe pneumonia Likely due to Aspiration due to seizures Hypoxia --CT Chest:Airspace opacities most prominent in the left lower lobe may represent pneumonia and/or aspiration. Atelectasis is noted as well. Cardiomegaly is seen. Procalcitonin: 0.50 Blood culture: Negative to date urine cultures grew gram-positive cocci (5000 colonies-likely contaminant) Aspiration precautions Weaned off of supplemental oxygen Speech therapy eval completed Completed 7 day treatment Hypertensive urgency Continue amlodipine, Metoprolol, Lisinopril Monitor Recurrent meningioma S/P surgery, chemotherapy, radiation therapy Chemotherapy discontinued recently Follows with [facility] neurology No plan for further treatments for meningioma as per family H/O Gastric bypass Dyslipidemia Anxiety disorder Continue Zoloft DVT Px: SCDs for now CODE STATUS DNI DNR as per patient's daughter-POA No heroic measures or surgeries/procedures requested per family Ongoing GOC with family and providers Admission and Anticipated Discharge Date Admission Date: January 24, 2022 Subjective Patient seen and examined Patient is a poor historian so detailed ROS is limited Currently alert, oriented to person, knows she is in a hospital but thinks it's [place]. Not oriented to time Denied any complaints However, has chronic diarrhea. Last episode was overnight per RN Denied any chest pain, cough, shortness of breath Denied nausea, abd pain Denied chills, fever Physical Exam Constitutional: + well hydrated; no acute distress Eyes: PERRL, conjunctivae normal, anicteric sclerae ENMT: external ear and nose normal, oropharynx normal Respiratory: normal respiratory effort, lungs clear to auscultation Cardiovascular: Rate/Rhythm: regular rate and regular rhythm S1 S2 Gastrointestinal (Abdomen): normal bowel sounds, soft, nontender, no hepatosplenomegaly Musculoskeletal: No pedal edema Neurologic: PERRL, EOMI, accommodation nl, no face palsy, no dysarthria Psychiatric: Alert, oriented to person, knows she is in a hospital but thinks it's [facility]. Not oriented to time Cooperative Results & Data Results & Data ([facility]) Vital Signs (Past 12 Hours) Vital Signs Temp Pulse Pulse Resp BP Pulse Ox O2 Del Method 01/31/22 07:43 36.9 C 76 20 153/87 H 94 Room Air 01/31/22 02:47 36.9 C 74 20 161/91 H 95 Room Air 01/31/22 01:48 72 01/30/22 23:19 36.4 C L 71 18 148/85 H 94 Room Air Laboratory Results Abnormal lab results 01/30/22 01/30/22 01/30/22 Range/Units 11:19 16:35 20:19 POC Glucose 121 H 123 H 124 H (70-99) mg/dl 01/31/22 Range/Units 07:34 POC Glucose 115 H (70-99) mg/dl
[2022-01-31 10:42] LABS: Hematocrit (blood only) 34.5 % (34.1-44.9); Mean Corpuscular Hemoglobin 28.9 pg (25.0-34.0); Mean Corpuscular Hgb Conc 31.9 g/dL (32.0-36.0); Mean Corpuscular Volume 90.8 fL (80.0-100.0); Mean Platelet Volume 10.3 fL (9.4-12.3); Platelet Count 196 K/uL (130-400); RDW Coefficient of Variation 21.5 % (11.5-14.5); White Blood Count 12.67 K/ul (4.8-10.8)
[2022-01-31 11:06] LABS: BUN Creatinine Ratio 21.2 (10-20); Calcium 8.1 mg/dl (8.5-10.1); Creatinine Clr Calc Pharmacy 55.6 ml/min; Est GFR (African American) 98.1 ml/min; Est GFR (Non-African American) 84.6 ml/min; Potassium 4.3 mmol/L (3.5-5.1)
[2022-01-31] MEDS ORDERED: ACETAMINOPHEN 325 MG TAB PO PRN (14:41)
[2022-01-31] MEDS: oxyCODONE HCL IR 5 MG TAB (IMMEDIATE RELEASE) PO PRN (20:28)
[2022-02-01 06:41] LABS: Hematocrit (blood only) 34.1 % (34.1-44.9); Hemoglobin 10.9 g/dl (12.0-16.0); Mean Corpuscular Hemoglobin 28.7 pg (25.0-34.0); Mean Corpuscular Volume 89.7 fL (80.0-100.0); Mean Platelet Volume 11.6 fL (9.4-12.3); Platelet Count 203 K/uL (130-400); RDW Coefficient of Variation 21.7 % (11.5-14.5); RDW Standard Deviation 66.2 fL (36.4-46.3); White Blood Count 12.05 K/ul (4.8-10.8)
[2022-02-01 07:12] LABS: BUN Creatinine Ratio 27.3 (10-20); Creatinine Clr Calc Pharmacy 55.6 ml/min; Est GFR (African American) 98.1 ml/min; Est GFR (Non-African American) 84.6 ml/min
[2022-02-01] MEDS: INSULIN ASPART PER UNIT SC SCH ×4 (08:53→20:19)
[2022-02-01] MEDS: amLODIPine BESYLATE 5 MG TAB PO SCH (08:54)
[2022-02-01] MEDS: ASPIRIN 81 MG ECTAB PO SCH (08:54)
[2022-02-01] MEDS: ADVANCED PROBIOTIC 1250 MG CAPSULE PO SCH (08:55)
[2022-02-01] MEDS: LABETALOL HCL 100 MG TAB PO SCH ×3 (08:55→20:35)
[2022-02-01] MEDS: levETIRAcetam 500 MG TAB PO SCH ×2 (08:55→20:35)
[2022-02-01] MEDS: SERTRALINE HCL 100 MG TABLET PO SCH (08:56)
[2022-02-01] MEDS: POTASSIUM CHLORIDE 20 MEQ/15 ML UDC PO SCH ×2 (08:56→20:35)
[2022-02-01] MEDS: lisinopril 40 MG TAB PO SCH (08:56)
--- NOTE | 2022-02-01 10:26 | Hospitalist Progress Note ---
Date of Service February 01, 2022 Assessment & Plan (1) Seizure: Plan: Multiple Seizures Likely Secondary to progressive meningioma, tramadol could be contributing Altered mental status --likely postictal state Received IV Versed, Valium, Keppra while in ED --CT head:Redemonstration of posterior midline intracranial mass which appears slightly enlarged from prior exam. Postsurgical changes are seen in the posterior fossa. No evidence of acute abnormality, in particular no hemorrhage or CT evidence of infarct. -- Repeat CT unchanged. Tramadol discontinued Seizure precautions, fall precautions IV Ativan as needed for seizures Appreciate Neurology Input Palliative care consulted to address goals of care Mental status appears to be improving Transitioned to p.o. Keppra 500 mg twice daily Elevated Troponin Likely Type II [place] due to hypoxia/seizure, hypertensive urgency --ECHO: EF 40 to 45%. Left atrium is moderately dilated. Mild to moderate aortic regurgitation, moderate to severe mitral regurgitation, moderate tricuspid regurgitation. Wall motion abnormalities of the left ventricular basal septum and anterior wall. Findings consistent with postictal state and hypoxia from prolonged seizure. Cardiology input noted Mild hyperkalemia Resolved Continue po potassium. May need to continue this on discharge Monitor BMP Chronic diarrhea ? Secondary to chemotherapy Stool studies negative for infection source DM Type II: Currently not on any medications Last A1c:6.8>>5.3 on insulin sliding scale per protocol Pharmacy Glycemic team on board Monitor BGs Left Lower lobe pneumonia Likely due to Aspiration due to seizures Hypoxia --CT Chest:Airspace opacities most prominent in the left lower lobe may represent pneumonia and/or aspiration. Atelectasis is noted as well. Cardiomegaly is seen. Procalcitonin: 0.50 Blood culture: Negative to date urine cultures grew gram-positive cocci (5000 colonies-likely contaminant) Aspiration precautions Weaned off of supplemental oxygen [employer] recs noted. Continue pureed diet Completed 7 day treatment Hypertensive urgency Continue amlodipine, Metoprolol, Lisinopril Monitor Recurrent meningioma S/P surgery, chemotherapy, radiation therapy Chemotherapy discontinued recently Follows with [facility] neurology No plan for further treatments for meningioma as per family H/O Gastric bypass Dyslipidemia Anxiety disorder Continue Zoloft DVT Px: SCDs for now CODE STATUS DNI DNR as per patient's daughter-POA No heroic measures or surgeries/procedures requested per family Had a family meeting with daughter Ashley who is POA and grandson I updated them about patient They will like to take patient home but wanted to discuss services to help at home We discussed home health vs home hospice They will have further discussion with CM. Plan is to dc tomorrow Admission and Anticipated Discharge Date Admission Date: January 24, 2022 Subjective Patient seen and examined Patient is a poor historian so detailed ROS is limited Denied any complaints Has chronic diarrhea. Had one this morning Denied any chest pain, cough, shortness of breath Denied nausea, abd pain Denied chills, fever Physical Exam Constitutional: + well hydrated; no acute distress Eyes: PERRL, conjunctivae normal, anicteric sclerae ENMT: external ear and nose normal, oropharynx normal Respiratory: normal respiratory effort, lungs clear to auscultation Cardiovascular: Rate/Rhythm: regular rate and regular rhythm S1 S2 Gastrointestinal (Abdomen): normal bowel sounds, soft, nontender, no hepatosplenomegaly Musculoskeletal: No pedal edema Neurologic: PERRL, EOMI, accommodation nl, no face palsy, no dysarthria Alert and oriented to person only, thinks she is in [facility] Results & Data Results & Data ([facility]) Vital Signs (Past 12 Hours) Vital Signs Temp Pulse Pulse Resp BP BP Pulse Ox 02/01/22 07:23 36.4 C L 72 16 130/62 95 02/01/22 03:25 36.5 C 77 20 162/90 H 97 01/31/22 23:18 36.7 C 67 18 134/74 94 01/31/22 22:53 68 O2 Del Method 02/01/22 07:23 Room Air 02/01/22 03:25 Room Air 01/31/22 23:18 Room Air 01/31/22 22:53 Laboratory Results Abnormal lab results 01/31/22 01/31/22 01/31/22 Range/Units 10:32 10:32 11:41 WBC 12.67 H (4.8-10.8) K/ul RBC 3.80 L (3.93-5.22) M/uL Hgb 11.0 L (12.0-16.0) g/dl MCHC 31.9 L (32.0-36.0) g/dL RDW Std Deviation 65.0 H (36.4-46.3) fL RDW Coeff of Judie 21.5 H (11.5-14.5) % Sodium (136-145) mmol/L BUN/Creatinine Ratio 21.2 H (10-20) Glucose 129 H (70-99(Fasting)) mg/dl POC Glucose 120 H (70-99) mg/dl Calcium 8.1 L (8.5-10.1) mg/dl 01/31/22 01/31/22 02/01/22 Range/Units 16:35 20:35 06:17 WBC 12.05 H (4.8-10.8) K/ul RBC 3.80 L (3.93-5.22) M/uL Hgb 10.9 L (12.0-16.0) g/dl MCHC (32.0-36.0) g/dL RDW Std Deviation 66.2 H (36.4-46.3) fL RDW Coeff of Judie 21.7 H (11.5-14.5) % Sodium (136-145) mmol/L BUN/Creatinine Ratio (10-20) Glucose (70-99(Fasting)) mg/dl POC Glucose 109 H 115 H (70-99) mg/dl Calcium (8.5-10.1) mg/dl 02/01/22 02/01/22 Range/Units 06:17 07:25 WBC (4.8-10.8) K/ul RBC (3.93-5.22) M/uL Hgb (12.0-16.0) g/dl MCHC (32.0-36.0) g/dL RDW Std Deviation (36.4-46.3) fL RDW Coeff of Judie (11.5-14.5) % Sodium 135 L (136-145) mmol/L BUN/Creatinine Ratio 27.3 H (10-20) Glucose 115 H (70-99(Fasting)) mg/dl POC Glucose 117 H (70-99) mg/dl Calcium 8.0 L (8.5-10.1) mg/dl
[2022-02-01] MEDS: oxyCODONE HCL IR 5 MG TAB (IMMEDIATE RELEASE) PO PRN (11:52)
[2022-02-02 07:29] LABS: BUN Creatinine Ratio 26.6 (10-20); Creatinine Clr Calc Pharmacy 57.3 ml/min; Est GFR (African American) 99.1 ml/min; Est GFR (Non-African American) 85.5 ml/min; Potassium 3.7 mmol/L (3.5-5.1)
[2022-02-02] MEDS: INSULIN ASPART PER UNIT SC SCH ×2 (08:59→11:58)
[2022-02-02] MEDS: ASPIRIN 81 MG ECTAB PO SCH (09:00)
[2022-02-02] MEDS: amLODIPine BESYLATE 5 MG TAB PO SCH (09:00)
[2022-02-02] MEDS: LABETALOL HCL 100 MG TAB PO SCH ×2 (09:00→14:03)
[2022-02-02] MEDS: levETIRAcetam 500 MG TAB PO SCH (09:01)
[2022-02-02] MEDS: lisinopril 40 MG TAB PO SCH (09:01)
[2022-02-02] MEDS: SERTRALINE HCL 100 MG TABLET PO SCH (09:01)
[2022-02-02] MEDS: ADVANCED PROBIOTIC 1250 MG CAPSULE PO SCH (09:01)
[2022-02-02] MEDS: POTASSIUM CHLORIDE 20 MEQ/15 ML UDC PO SCH (09:02)
[2022-02-02] MEDS: LOPERAMIDE HCL 2 MG CAP PO PRN (10:10)
[2022-02-02] MEDS ORDERED: MENTHOL-ZINC OXIDE 360 APPLN/120 GM TUBE EXT SCH (10:30)
--- NOTE | 2022-02-02 10:58 | Discharge Summary ---
Discharge Summary Date of Service February 02, 2022 Notes For Next Care Provider Patient was discharged on home hospice per daughter's preference Medication Changes From Visit Continue keppra started inpatient for seizures Tramadol stopped due to effect on seizure threshold Use tylenol as needed for pain. Use oxycodone as needed for severe pain Admission HPI Per Admitting Provider Patient is a 15-year-old female with history of meningioma S/P surgery, radiation therapy, chemotherapy, S/P gastric bypass, dyslipidemia, hypertension, diabetes, anxiety disorder, protein calorie malnutrition, CKD stage III, cystocele and other medical problems presents with history of multiple episodes of seizures. Patient is currently obtunded and unable to provide any history. Most of the history is obtained from patient's family at bedside, old records and from ER physician. Family reports that patient has been not herself since about 4 to 5 days duration. This morning patient was being helped to go to bathroom when she fell on the floor and couldn't get up. Patient was found to be unconscious in feces. Her family attributes that she had chronic diarrhea which is unchanged. No known history of urinary incontinence, tongue bite. Patient was nonverbal and was only able to nod her head to questions as per family. ? chest pain but was unsure. 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 Her family eventually were able to lift her up to the bed. Family reports no head trauma. She was noted to have generalized seizure-like activity. When EMS arrived, patient also was noted to have seizure-like activity and was given 2 mg of IV Versed. She was placed on nonrebreather. In route to the hospital she also had an episode of seizure as per records. Patient had another episode of seizure while waiting for CT head. Patient received another dose of IV Versed, Valium and Keppra. Currently she is obtunded and unable to provide any history. No known history of seizure disorder in the past. She has been using tramadol for pain as needed. Patient was recently discontinued on chemotherapy for meningioma and was planned to be started on octreotide on February 02 as per family. Patient ambulates with wheelchair at baseline and only transfers with help. Family prefers patient to be DNI DNR. Discussed with patient's daughter Ashley DobbsGONZALEZ at bedside. " My mom has undergone through a lot'. No heroic measures or surgery/procedures as per family. Admission Exam Per Admitting Provider Mild cachectic, NAD Cardiac: Systolic murmur, normal S1/S2 Lungs: Good air entry b/l, no wheezing or crackles Abd: ND, soft, mild TTP of the suprapubic area MSk: no LE edema Psych: AAOx3, normal affect Principal Dx & Hospital Course #1 = Principal Diagnosis (1) Seizure: Multiple Seizures Likely Secondary to progressive meningioma, tramadol could be contributing Altered mental status --likely postictal state Received IV Versed, Valium, Keppra while in ED --CT head:Redemonstration of posterior midline intracranial mass which appears slightly enlarged from prior exam. Postsurgical changes are seen in the posterior fossa. No evidence of acute abnormality, in particular no hemorrhage or CT evidence of infarct. -- Repeat CT unchanged. Tramadol discontinued Seizure precautions, fall precautions Was evaluated by Neurology Palliative care consulted to address goals of care Mental status improved Was on iv keppra. Transitioned to p.o. Keppra 500 mg twice daily Left Lower lobe pneumonia Likely due to Aspiration due to seizures Hypoxia --CT Chest:Airspace opacities most prominent in the left lower lobe may represent pneumonia and/or aspiration. Atelectasis is noted as well. Cardiomegaly is seen. Procalcitonin: 0.50 Blood culture: Negative to date urine cultures grew gram-positive cocci (5000 colonies-likely contaminant) Aspiration precautions Weaned off of supplemental oxygen Was evaluated by Speech therapist. Continue pureed diet Completed 7 day antibiotic treatment Elevated Troponin Likely Type II MN due to hypoxia/seizure, hypertensive urgency --ECHO: EF 40 to 45%. Left atrium is moderately dilated. Mild to moderate aortic regurgitation, moderate to severe mitral regurgitation, moderate tricuspid regurgitation. Wall motion abnormalities of the left ventricular basal septum and anterior wall. Findings consistent with postictal state and hypoxia from prolonged seizure. Cardiology evaluated but recommended palliative care Chronic diarrhea Stool studies negative for infection source Continue imodium prn Continue skin care DM Type II: Currently not on any medications Last A1c:6.8>>5.3 Hypertensive urgency Continue amlodipine, Metoprolol, Lisinopril Home medications continued on discharge. Patient/family to decide when to stop Recurrent meningioma S/P surgery, chemotherapy, radiation therapy Chemotherapy discontinued recently Follows [facility] neurology No plan for further treatments for meningioma as per family H/O Gastric bypass Dyslipidemia Anxiety disorder Continue Zoloft Goals of care discussion was had with family Daughter Ashley who is POA reported no heroic measures or surgeries/procedures She decided to have patient discharged home on home hospice after discussion with case monitor Discharge Exam Constitutional + well hydrated; no acute distress Eyes PERRL, conjunctivae normal, anicteric sclerae ENMT external ear and nose normal, oropharynx normal Respiratory normal respiratory effort, lungs clear to auscultation Cardiovascular Rate/Rhythm: regular rate and regular rhythm S1 S2 Gastrointestinal (Abdomen) normal bowel sounds, soft, nontender, no hepatosplenomegaly Neurologic PERRL, EOMI, accommodation nl, no face palsy, no dysarthria Psychiatric Alert and oriented to person only Updated Medication List Medication Instructions Recorded Confirmed Type acetaminophen 325 mg capsule 325 mg PO Q6 PRN Fever Or Pain 06/27/21 01/24/22 H istory amlodipine 5 mg tablet 5 mg PO QAM 06/27/21 01/24/22 History cyanocobalamin (vitamin B-12) 1,000 mcg IM Q30D 06/27/21 01/24/22 History 1,000 mcg/mL injection solution labetalol 100 mg tablet 100 mg PO TID 06/27/21 01/24/22 History lisinopril 40 mg tablet 40 mg PO QAM 06/27/21 01/24/22 History loperamide 2 mg capsule 2 mg PO UD PRN Loose Stool 06/27/21 01/24/22 History lorazepam 0.5 mg tablet 0.25 mg PO HS PRN Anxiety/sleep 06/27/21 01/24/22 History meclizine 12.5 mg tablet 12.5 mg PO Q8 PRN Dizziness 06/27/21 01/24/22 History multivitamin 1 tab PO DAILY 06/27/21 01/24/22 History ondansetron HCl 8 mg tablet 8 mg PO Q8H PRN Nausea 06/27/21 01/24/22 History aspirin 81 mg tablet,delayed 81 mg PO DAILY 01/24/22 01/24/22 History release sertraline 100 mg tablet 100 mg PO QAM 01/24/22 01/24/22 History levetiracetam 500 mg tablet 500 mg PO BID #60 tabs 02/02/22 Rx (Keppra) menthol 0.44 %-zinc oxide 20.6 % 1 applic EXT UD #113 grams 02/02/22 Rx topical ointment (Calmoseptine) oxycodone 5 mg tablet 5 mg PO Q6H PRN severe pain (scale 02/02/22 Rx score 7-10) #30 tabs Hospital Stay Data Consultations 01/24/22 17:44 ED Decision to Admit Stat 01/24/22 19:43 Consult Neurology Routine 01/25/22 07:45 Consult Cardiology Routine 01/26/22 11:42 Consult Palliative Care Routine Diagnostic Imagining Performed 01/24/22 15:53 CT head/brain wo con Stat 01/24/22 17:41 CT chest without contrast [CT chest diagnostic wo con] Stat 01/27/22 07:33 CT head/brain wo con Urgent Pending Results Patient Have Any Pending Studies at Discharge: No Discharge Instructions Given to Patient (Per Discharging Provider) Mrs Ferreira You were brought to the hospital after seizures You were evaluated and found to have progressive meningioma. You were also treated for Pneumonia, likely due to aspiration. You are being discharged to home on hospice. Stop using tramadol. Use oxycodone as needed for severe pain not controlled with tylenol. You were started on keppra for seizures. It was a pleasure taking care of you. Total Time Total Time Spent Total Time Spent (In Minutes): 55 Total Time Includes: Examination of the Patient, Discharge Planning and Medication Reconciliation
[2022-02-02 12:09] VITALS: O2SAT 95
[2022-02-02 15:12] VITALS: BP 148/74; PULSE 66; TEMP 98.2
[2022-02-02] MEDS: oxyCODONE HCL IR 5 MG TAB (IMMEDIATE RELEASE) PO PRN (15:20)
== END 2022-02-02 17:34 | disposition hospice, home (50) | DRG 100 ==
LOC: ED 15:53 → SUATTDRO 18:04 → 2E 18:04